=== PATIENT | female | born 1980 | race Caucasian/White ===

== ENCOUNTER → 2022-09-26 11:58 | Outpatient (BNVA) | payer MEDICAID, SELFPAY | PROVIDERS: Family Provider Registered Nurse; PCP Registered Nurse; Visit Provider Family Medicine | DX: F31.9 Bipolar disorder, unspecified (principal); H60.90 Unspecified otitis externa, unspecified ear; F43.10 Post-traumatic stress disorder, unspecified; F90.9 Attention-deficit hyperactivity disorder, unspecified type; F60.9 Personality disorder, unspecified; M25.562 Pain in left knee; M21.41 Flat foot [pes planus] (acquired), right foot; M79.7 Fibromyalgia | CPT/HCPCS: 80053; 85025 ==

== ENCOUNTER 2022-10-28 17:25 | Inpatient (IN) | payer MEDICAID, SELFPAY ==
[2022-10-28] VITALS (7 sets, daily range): BP systolic 92–195; BP diastolic 59–121; PULSE 93–127; RESP 14–24; TEMP 36.4–36.8; O2SAT 92–99
--- NOTE | 2022-10-28 17:32 | W.ED.PSYCHS ---
HPI - Psych General: Chief Complaint: Psychiatric Symptoms Stated Complaint: 96 Time Seen by Provider: 10/28/22 17:31 Limitations: altered mental status History of Present Illness: Ms. Daniels is a 42-year-old lady presenting to the emergency department on a 96-hour hold by law enforcement. The patient appears anxious and significantly disorganized. She provides essentially no reliable or meaningful collateral history. History is limited secondary to mental status change. Per chart review of visit with Dr Nieves 09/26/22- 42yo F with Hx of ADHD, Bipolar disorder and Personality disorder presents to [facility] Moved from [facility] moved back in with parents. moved here 3 days ago previous PCP: unknown Mother is LEGAL GUARDIAN 1. psychiatric disorders ?-ADHD, Bipolar, PTSD, personality disorder ?-seeing Dr. Vila, ?-Off medication x 3 months. ?-previously on lithium 300mg XR. previously on Latuda ?-poor reaction to seroquel ?-Over past 3 months, has , off medications, feeling mood has gotten worse. ?-2 manic episodes, almost went to hospital. last manic episode 1 month ago ?-admits to depression predominantly. ?-Denies SI/HI. admits to hx of self harm many years ago ?-desires to restart lithium or latuda. afraid of oncoming manic episodes. ... Review of Systems General: Reports: ROS unobtainable due to mental status PFS ED PFSH: Medical History ADHD Bipolar disorder Herniated disc Personality disorder Psychiatric care PTSD (post-traumatic stress disorder) Surgical History History of foot surgery left foot, reconstructive due to no arch Family History Grandmother Dementia Diabetes Father Psychiatric illness Hypertension Other Bipolar disorder Denies family history of CAD (coronary artery disease) Clotting disorder Hyperlipidemia Chronic kidney disease (CKD) Anesthesia complication Bleeding disorder Lung disease Cancer Stroke Social History Smoking and tobacco status: current every day smoker cigarettes [ Other cigarette details: 1/3PPD, 30 PY, started at 12yo] Alcohol intake: never Desire information about alcohol rehabilitation?: No Desire information about substance/drug rehabilitation?: No Adopted: No Caregiver/support person: No Lives independently: Yes Current occupational status: unemployed Current gender identity: Female Special ashley needs: No Female Reproductive History: Date of last menstrual period: 03/23/22 Para: 2 Spontaneous abortions: Yes Physical Exam Const: COMMON NORMALS: alert GENERAL APPEARANCE: well developed HENMT: COMMON NORMALS: normocephalic and atraumatic HEAD & SCALP: normocephalic and atraumatic THROAT: posterior oropharynx normal Eye: COMMON NORMALS: conjunctivae normal CONJUNCTIVA: Yes conjunctivae normal SCLERA: sclerae normal Neck/C-Spine: COMMON NORMALS: supple GENERAL: Yes trachea midline Resp: COMMON NORMALS: clear to auscultation bilaterally EFFORT & INSPECTION: Yes able to speak in complete sentences AUSCULTATION: clear to auscultation bilaterally Cardio: COMMON NORMALS: regular rate and regular rhythm RATE: regular rate RHYTHM: regular rhythm GI: COMMON NORMALS: Soft to palpation PALPATION: Yes Soft to palpation and No Tenderness to palpation present (GI) Extremity: GENERAL: Yes normal exam except as noted and No edema Neuro: COMMON NORMALS: moves all extremities SENSORIUM/ORIENTATION: Yes alert and Yes Orientation impaired Psych: APPEARANCE: Yes unkempt ATTITUDE: Yes paranoid and Yes evasive ACTIVITY/MOTOR BEHAVIOR: Yes psychomotor agitation and Yes fidgeting SPEECH: Yes Pressured speech present MOOD & AFFECT: Yes anxious and Yes Labile affect present THOUGHT PROCESS: incoherent and disorganized ATTENTION/CONCENTRATION: Yes attention grossly impaired and Yes concentration grossly impaired MEMORY/COGNITION: Yes memory grossly impaired and Yes cognition grossly impaired Course Vital Signs: Vital signs: Vital Signs Temperature 98.2 F 11/03/22 11:53 Pulse Rate 77 11/03/22 11:53 Respiratory Rate 16 11/03/22 11:53 Blood Pressure 112/70 11/03/22 11:53 Pulse Oximetry 96 11/03/22 11:53 Oxygen Delivery Me thod 11/02/22 06:00 [facility] - Psych Medical Decision Making 42-year-old lady with unclear past history presenting to the emergency department due to psychiatric concerns. Patient is markedly disorganized on exam. Initially cooperative however patient subsequently became significantly agitated and began to attempt to hit and kick staff. She was unable to be verbally de-escalated and subsequently required restraints. She was serially reexamined per protocol with [id number] exams during ED course and restraint release protocol was performed as appropriate. Labs without significant hematologic abnormalities, mild hypokalemia on metabolic panels, oral replenishment ordered. Toxic ingestions negative, UDS positive for amphetamines and THC. Given exam and clinical history provided as well as laboratory studies imaging not warranted at this time. The most likely cause of patient's symptoms is acute psychosis, possibly substance-induced. Patient significantly improved upon reassessment and able to tolerate p.o. intake, medications at desired therapeutic effect. Based on ED evaluation at this point there is no obvious condition that would preclude the patient from inpatient management of psychiatric symptoms. Given degree of psychosis patient placed on 96-hour hold. Discussed with psychiatry service who was agreeable to admit patient. Medical Records I reviewed the patient's medical records. Lab Data I reviewed the patient's lab results. 10/28/22 19:12 10/28/22 19:12 Discharge Plan Discharge Patient Disposition: Admitted As Inpatient Admit Provider: Parag Daniels Clinical Impression: Acute psychosis Condition: Stable Discharge Diet: Regular Discharge Activity: Resume usual activity Coding Level of Care Code ED Forcer Maker for Dahiana Garcia
--- NOTE | 2022-10-28 17:52 | PC.NURSE ---
Pt will not answer questions, she just rambles on about things that do not make since.
[2022-10-28] MEDS: midazolam 1 mg/mL INJ 2 mL 5 MG IM (18:54)
[2022-10-28] MEDS: ziprasidone 20 mg/mL SDV (18:55)
[2022-10-28] MEDS: ziprasidone 20 mg/mL SDV IM (18:55)
--- NOTE | 2022-10-28 19:00 | PC.NURSE ---
Pt refused to let me take vitals on her, refuses to talk or answer questions
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
[2022-10-28 19:28] LABS: Basophils % 0.3 %; Eosinophils # 0.1 10^3/uL (0.0-0.8); Eosinophils % 0.8 %; Hematocrit 40.7 % (37.0-47.0); Hemoglobin 13.1 g/dL (11.5-15.3); Lymphocytes # 1.5 10^3/uL (0.8-4.8); Lymphocytes % 22.7 %; Mean Corpuscular HGB Conc 32.2 g/dL (30.0-36.0); Mean Corpuscular Hemoglobin 28.6 pg (28.0-34.0); Mean Corpuscular Volume 88.9 fl (81-99); Mean Platelet Volume 10.6 fL (7.4-10.4); Monocytes # 0.5 10^3/uL (0.2-0.9); Monocytes % 7.7 %; Neutrophils # 4.36 10^3/uL (1.8-7.7); Neutrophils % 68.3 %; Nucleated Red Blood Cells % 0 %; Platelet Count 309 10^3/cmm (130-400); Red Blood Count 4.58 10^6/uL (4.1-5.3); Red Cell Distribution Width 13.5 % (12.1-15.1); White Blood Count 6.4 10^3/uL (4.0-10.0)
[2022-10-28 19:52] LABS: Alanine Aminotransferase 20 U/L (0-33); Albumin Level 4.6 g/dL (3.5-5.2); Alkaline Phosphatase 87 U/L (35-105); Anion Gap 18.1 (5-19); Aspartate Amino Transferase 41 U/L (0-32); Blood Urea Nitrogen 9 mg/dL (6-20); Calcium 9.8 mg/dL (8.5-10.5); Carbon Dioxide 22 mmol/L (22-29); Chloride 101 mmol/L (98-107); Globulin 3.2 g/dL (1.3-4.6); Glomerular Filtration Rate 78.3 mL/min (90-130); Glucose 141 mg/dL (65-115); Osmolality Calculated 287 mOsm/kg (285-295); Potassium 3.1 mmol/L (3.5-5.1); Sodium 138 mmol/L (136-145); Thyroid Stimulating Hormone 1.71 uIU/mL (0.27-4.20); Total Bilirubin 0.5 mg/dL (0.15-1.2); Total Protein 7.8 g/dL (6.6-8.7)
[2022-10-28 19:55] LABS: Acetaminophen < 5.0 ug/mL (10-30); Alcohol Level < 10 mg/dL (0-10); Salicylate < 0.3 mg/dL (3-10)
[2022-10-28 20:08] LABS: HCG Qualitative Urine. Negative (Negative)
[2022-10-28 20:18] LABS: Amphetamines Screen Urine Positive (Negative); Barbiturates Screen Urine Negative (Negative); Benzodiazepines Screen Urine Negative (Negative); Cocaine Screen Urine Negative (Negative); Opiate Screen Urine Negative (Negative); PCP Screen Urine Negative (Negative); THC Screen Urine Positive (Negative)
[2022-10-28] MEDS: potassium chloride ER 20 mEq Tablet 40 MEQ PO (20:27)
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
[2022-10-29] MEDS: hyDROXYzine 25 mg Capsule 50 MG PO (03:01)
[2022-10-29 06:00] VITALS: RESP 16
[2022-10-29] MEDS: haloperidol inj 5 mg/mL INJ 1 mL IM (08:23)
[2022-10-29] MEDS: diphenhydrAMINE 50 mg/mL SDV 1mL IM (08:23)
[2022-10-29] MEDS: LORazepam 2 mg/mL INJ 1 mL IM (08:23)
--- NOTE | 2022-10-29 08:23 | PC.NURSE ---
PRN BENADRYL/HALDOL/ATIVAN BENADRYL 50 MG GIVEN IM IN LEFT DELTOID AND ATIVAN 2 MG GIVEN IM WITH HALDOL 5 MG IM IN RIGHT DELTOID PER PT C/O INCREASED ANXIETY/AGITATION/PSYCHOSIS. YELLING LOUDLY FROM ROOM, CURSING AT STAFF AND OTHER PATIENTS IN THE HALLWAY. VISIBLY SHAKING WHILE SITTING ON HER BED. TOLERATED INJECTIONS WELL.
--- NOTE | 2022-10-29 09:41 | PC.OT ---
OT EVALUATION ORDERS RECEIVED. NURSING REQUESTS HOLD AT THIS TIME DUE TO MEDS GIVEN THIS MORNING FOR AGITATION. PATIENT IS SEEN WANDERING UNSTEADILY OUT OF HER ROOM TO THE NURSES STATION. I ASKED IF SHE NEEDED ASSISTANCE BUT SHE DID NOT RESPOND. WILL ATTEMPT OT EVALUATION AGAIN AT A LATER TIME
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
[2022-10-29 14:00] VITALS: RESP 16
[2022-10-29 20:29] VITALS: RESP 18
[2022-10-30 06:00] VITALS: RESP 16
[2022-10-30] MEDS: OLANZapine 5 mg ODT PO (09:24)
[2022-10-30] MEDS: pregabalin 150 mg Capsule PO ×2 (09:24→18:00)
[2022-10-30] MEDS: hyDROXYzine 25 mg Capsule 50 MG PO (09:24)
[2022-10-30] MEDS: lurasidone 20 mg Tablet PO (09:25)
[2022-10-30] MEDS: ibuprofen 600 mg Tablet PO (12:57)
[2022-10-30] MEDS: tizanidine 4 mg Tablet PO (12:58)
[2022-10-30 14:00] VITALS: BP 98/63; PULSE 86; RESP 20; TEMP 36.6; O2SAT 98
--- NOTE | 2022-10-30 14:28 | W.PM.NPUPNS ---
Subjective NPU Subjective: Patient presented today with slightly more arousable and yesterday. She had reportedly eaten some during the stay but otherwise she has been lethargic and in bed. Mental Status Exam MSE Comments: This is a slender white female in hospital scrubs with limited grooming and absent eye contact. Absent dentition. No abnormal movements except for psychomotor retardation. Uncooperative with exam in mild distress. Speech was mostly absent and decreased rate and volume. Mood not described affect lethargic. Thought process linear. Thought content: Patient had no signs of injury or outwardly directed aggression, delusions reported or noted, she did not appear to be attending to internal stimuli. Attention and concentration were impaired and memory was not evaluated, but allegorical. She will occasionally ramble and oriented to person. Insight, judgment and impulse control are impaired. Vitals/I&O/Wt Last Vital Signs Temp 98 F 10/30/22 14:00 Pulse 86 10/30/22 14:00 Resp 20 H 10/30/22 14:00 BP 98/63 10/30/22 14:00 Pulse Ox 98 10/30/22 14:00 O2 Del Method 10/30/22 14:00 Data NPU 10/28/22 19:12 10/28/22 19:12 A&P Assessment and plan (1) Acute psychosis: (2) Bipolar disorder: (3) Personality disorder: (4) PTSD (post-traumatic stress disorder): Plan This is a 22-year-old white female with a long history of trauma, addiction and mental health diagnoses including bipolar disorder who presents with psychotic symptoms and significant lethargy likely due to a methamphetamine withdrawal syndrome. 1. Continue current medication. 2. Continue every 15 minute checks for safety. 3. Encourage individual, group and milieu therapy once he has engaged. 4. Encourage sobriety treatment after discharge to the hospital care to which she is willing to commit. 5. Obtain collateral information given her limited historical assistance. Involuntary Hold Information 96 Hour Hold: 96 Hour Involuntary Admission: Yes 96 Hour Hold Ending Date: 11/03/22 96 Hour Hold Ending Time: 19:10 Attestations NPU Medical Necessity Statement*: Inpatient hospitalization is medically necessary and be clinically appropriate vet at this time. We will monitor/initiate medications and make changes as indicated. Likely length of stay 5 to 7 days. Coding Level of Care Code Acute Technical Support Assistant for Chg Fwd Diagnoses Acute psychosis F23 Bipolar disorder F31.9 Personality disorder F60.9 PTSD (post-traumatic stress disorder) F43.10
[2022-10-30 14:55] VITALS: PULSE 89; RESP 20; O2SAT 98
[2022-10-30 20:48] VITALS: BP 100/58; PULSE 76; RESP 18; TEMP 36.4; O2SAT 94
[2022-10-30] MEDS: diphenhydrAMINE 50 mg Capsule PO (21:29)
[2022-10-31] MEDS: loperamide 2 mg Capsule PO ×2 (03:22→08:08)
--- NOTE | 2022-10-31 03:22 | PC.NURSE ---
Patient woke up and was C/O diarrhea. Immodium 2mg PO given.
[2022-10-31 06:00] VITALS: BP 117/89; PULSE 103; RESP 17; TEMP 36.8; O2SAT 98
[2022-10-31] MEDS: acetaminophen 325 mg Tablet 650 MG PO (07:03)
[2022-10-31] MEDS: hyDROXYzine 25 mg Capsule 50 MG PO (07:03)
[2022-10-31] MEDS: lurasidone 20 mg Tablet PO (08:08)
[2022-10-31] MEDS: OLANZapine 5 mg ODT PO ×2 (08:08→15:44)
[2022-10-31] MEDS: pregabalin 150 mg Capsule PO ×2 (08:08→18:06)
[2022-10-31 14:00] VITALS: BP 117/79; PULSE 88; RESP 20; TEMP 37.3; O2SAT 98
--- NOTE | 2022-10-31 17:36 | W.PM.NPUPNS ---
Subjective NPU Subjective: Patient presented today finally alert enough to have a meaningful conversation. However she was quite irritable and ultimately ended the conversation early. She had identified that she was frustrated in her current living environment because they smoke weed all the time but are critical of me. She acknowledged that she made a little castaneda-castaneda. When this va underwriter queried if she meant that she had relapsed on methamphetamine she got very upset asking why I had said the word out loud even though we were the only 2 people in the room. Attempted to discuss the importance of accountability and recovery and she ultimately ended the conversation soon after. Mental Status Exam MSE Comments: This is a slender white female in hospital scrubs with limited grooming and adequate eye contact. Absent dentition. No abnormal movements except for mild psychomotor retardation. More cooperative with exam in mild to moderate distress. Speech was more normal rate and volume. Mood described as fine, affect irritable. Thought process linear. Thought content: Patient denies suicidal or homicidal ideation, there were no delusions reported but some paranoia noted, she did not appear to be attending to internal stimuli. Attention and concentration were improving and memory was more liable but not were formally tested. She was alert and oriented x3. Insight, judgment and impulse control are impaired. Vitals/I&O/Wt Last Vital Signs Temp 99.1 F 10/31/22 14:00 Pulse 85 10/31/22 22:33 Resp 16 10/31/22 22:33 BP 117/79 10/31/22 14:00 Pulse Ox 96 10/31/22 22:33 O2 Del Method 10/31/22 22:33 Data NPU 10/28/22 19:12 10/28/22 19:12 A&P Assessment and plan (1) Acute psychosis: (2) Bipolar disorder: (3) Personality disorder: (4) PTSD (post-traumatic stress disorder): Plan This is a 22-year-old white female with a long history of trauma, addiction and mental health diagnoses including bipolar disorder who presents with psychotic symptoms and significant lethargy likely due to a methamphetamine withdrawal syndrome. 1. Continue current medication. 2. Continue every 15 minute checks for safety. 3. Encourage individual, group and milieu therapy once he has engaged. 4. Encourage sobriety treatment after discharge to the hospital care to which she is willing to commit. 5. Obtain collateral information given her limited historical assistance. Involuntary Hold Information 96 Hour Hold: 96 Hour Involuntary Admission: Yes 96 Hour Hold Ending Date: 11/03/22 96 Hour Hold Ending Time: 19:10 Attestations NPU Medical Necessity Statement*: Inpatient hospitalization is medically necessary and be clinically appropriate vet at this time. We will monitor/initiate medications and make changes as indicated. Likely length of stay 3-5 days. Coding Level of Care Code Acute Delicate Fabrics Presser for [facility] Fwd Diagnoses Acute psychosis F23 Bipolar disorder F31.9 Personality disorder F60.9 PTSD (post-traumatic stress disorder) F43.10
[2022-10-31 20:04] VITALS: RESP 16
[2022-10-31 22:33] VITALS: PULSE 85; RESP 16; O2SAT 96
[2022-11-01 06:00] VITALS: RESP 16
[2022-11-01] MEDS: pregabalin 150 mg Capsule PO ×2 (08:18→18:13)
[2022-11-01] MEDS: lurasidone 20 mg Tablet PO (08:18)
[2022-11-01] MEDS: hyDROXYzine 25 mg Capsule 50 MG PO (08:20)
[2022-11-01] MEDS: OLANZapine 5 mg ODT PO ×2 (09:16→13:49)
[2022-11-01] MEDS: diphenhydrAMINE 50 mg Capsule PO (10:18)
[2022-11-01] MEDS: haloperidol 5 mg Tablet PO ×2 (10:18→15:29)
--- NOTE | 2022-11-01 13:05 | W.PM.NPUPNS ---
Subjective NPU Subjective: Patient presented today reporting that she is starting to feel better and was apologetic about the way she had behaved the last couple of days. She reported an openness to get connected with services. But she had some resistance to any intensive sober living programs. She did acknowledge having recent relapse and some challenges with her relationship with her family. She denied any needs for any other medications than the 1 she was currently taking. Mental Status Exam MSE Comments: This is a slender white female in hospital scrubs with limited grooming and adequate eye contact. Absent dentition. No abnormal movements except for mild psychomotor retardation. More cooperative with exam in no acute distress. Speech was more normal rate and volume. Mood described as better, affect congruent. Thought process linear and more organized. Thought content: Patient denies suicidal or homicidal ideation, there were no delusions reported but some paranoia noted, she did not appear to be attending to internal stimuli. Attention and concentration were improving and memory was more liable but not were formally tested. She was alert and oriented x3. Insight and judgment were improving and impulse control are limited. Vitals/I&O/Wt Last Vital Signs Temp 99.1 F 10/31/22 14:00 Pulse 85 10/31/22 22:33 Resp 16 11/01/22 06:00 BP 117/79 10/31/22 14:00 Pulse Ox 96 10/31/22 22:33 O2 Del Method 10/31/22 22:33 Data NPU 10/28/22 19:12 10/28/22 19:12 A&P Assessment and plan (1) Acute psychosis: (2) Bipolar disorder: (3) Personality disorder: (4) PTSD (post-traumatic stress disorder): Plan This is a 22-year-old white female with a long history of trauma, addiction and mental health diagnoses including bipolar disorder who presents with psychotic symptoms and significant lethargy likely due to a methamphetamine withdrawal syndrome. 1. Continue current medication. 2. Continue every 15 minute checks for safety. 3. Encourage individual, group and milieu therapy once he has engaged. 4. Encourage sobriety treatment after discharge to the hospital care to which she is willing to commit. 5. Obtain collateral information given her limited historical assistance. Involuntary Hold Information 96 Hour Hold: 96 Hour Involuntary Admission: Yes 96 Hour Hold Ending Date: 11/03/22 96 Hour Hold Ending Time: 19:10 Attestations NPU Medical Necessity Statement*: Inpatient hospitalization is medically necessary and be clinically appropriate vet at this time. We will monitor/initiate medications and make changes as indicated. Likely length of stay 2-4 days. Coding Level of Care Code Acute Curriculum And Instruction Specialist for Chg Fwd Diagnoses Acute psychosis F23 Bipolar disorder F31.9 Personality disorder F60.9 PTSD (post-traumatic stress disorder) F43.10
[2022-11-01] MEDS: acetaminophen 325 mg Tablet 650 MG PO (13:20)
[2022-11-01 14:00] VITALS: BP 106/69; PULSE 75; RESP 16; TEMP 37.4; O2SAT 98
[2022-11-01 21:23] VITALS: BP 109/71; PULSE 84; RESP 16; TEMP 36.9; O2SAT 100
[2022-11-02 06:00] VITALS: BP 118/74; PULSE 83; RESP 16; TEMP 37; O2SAT 98; BMI 21.2
[2022-11-02] MEDS: loperamide 2 mg Capsule PO (07:47)
[2022-11-02] MEDS: hyDROXYzine 25 mg Capsule 50 MG PO (07:47)
--- NOTE | 2022-11-02 07:49 | PC.NURSE ---
PRN Med Patient presented to the counter with hands shaking and stated she was feeling very anxious this morning and was experiencing diarrhea. Patient given 50 mg of hydroxyzine PO and 2 mg of loperamide.
[2022-11-02] MEDS: pregabalin 150 mg Capsule PO ×2 (08:38→18:07)
[2022-11-02] MEDS: lurasidone 20 mg Tablet PO (08:38)
[2022-11-02] MEDS: ondansetron 4 MG Tablet PO (11:03)
[2022-11-02] MEDS: OLANZapine 5 mg ODT PO ×2 (11:03→16:17)
--- NOTE | 2022-11-02 11:07 | PC.NURSE ---
PRN SHIP SUPERINTENDENT Patient in dayroom requesting something for anxiety. Visibly anxious, tapping feet continuously and moving hands around. Patient administered zyprexa 5 mg ODT. She also stated her anxiety was making her feel nauseous so 4 mg ondansetron was administered.
--- NOTE | 2022-11-02 12:09 | W.PM.NPUPNS ---
Subjective NPU Subjective: Patient presents today continuing to show slow but steady improvement. Clearly her sensorium shows obvious improvement with each day removed from the use. She seems to be more open to the idea that treatment holds the spain to her having a lasting improvement. We discussed working with the treatment team tomorrow to get her connected with outpatient resources. We discussed the possibility of discharge tomorrow versus filing for a 21-day hold with that this point is less likely. Mental Status Exam MSE Comments: This is a slender white female in hospital scrubs with appropriate grooming and eye contact. Absent dentition. No abnormal movements. More cooperative with exam in no acute distress. Speech was more normal rate and volume. Mood described as better, affect congruent. Thought process linear and more organized. Thought content: Patient denies suicidal or homicidal ideation, there were no delusions reported but some paranoia noted, she did not appear to be attending to internal stimuli. Attention and concentration were improving and memory was more liable but not were formally tested. She was alert and oriented x3. Insight and judgment were improving and impulse control are limited, but improving. Vitals/I&O/Wt Last Vital Signs Temp 98.6 F 11/02/22 06:00 Pulse 83 11/02/22 06:00 Resp 16 11/02/22 06:00 BP 118/74 11/02/22 06:00 Pulse Ox 98 11/02/22 06:00 O2 Del Method 11/02/22 06:00 Weight last 48 hrs Weight 61.405 kg Data NPU 10/28/22 19:12 10/28/22 19:12 A&P Assessment and plan (1) Acute psychosis: (2) Bipolar disorder: (3) Personality disorder: (4) PTSD (post-traumatic stress disorder): Plan This is a 22-year-old white female with a long history of trauma, addiction and mental health diagnoses including bipolar disorder who presents with psychotic symptoms and significant lethargy likely due to a methamphetamine withdrawal syndrome. 1. Continue current medication. 2. Continue every 15 minute checks for safety. 3. Encourage individual, group and milieu therapy once he has engaged. 4. Encourage sobriety treatment after discharge to the hospital care to which she is willing to commit. 5. Obtain collateral information given her limited historical assistance. Involuntary Hold Information 96 Hour Hold: 96 Hour Involuntary Admission: Yes 96 Hour Hold Ending Date: 11/03/22 96 Hour Hold Ending Time: 19:10 Attestations NPU Medical Necessity Statement*: Inpatient hospitalization is medically necessary and be clinically appropriate vet at this time. We will monitor/initiate medications and make changes as indicated. Likely length of stay 1-3 days. Coding Level of Care Code Acute Director Of Early Childhood for Chg Fwd Diagnoses Acute psychosis F23 Bipolar disorder F31.9 Personality disorder F60.9 PTSD (post-traumatic stress disorder) F43.10
[2022-11-02] MEDS: nicotine 2 mg Gum BUCCAL (12:33)
[2022-11-02] MEDS: haloperidol 5 mg Tablet PO (13:42)
[2022-11-02] MEDS: diphenhydrAMINE 50 mg Capsule PO (13:42)
--- NOTE | 2022-11-02 13:44 | PC.NURSE ---
PRN Windows Desktop Engineer Patient presented to the nurses' station visibly rubbing her hands over each other and speech became pressured. She stated she was very anxious and attempted to utilize techniques to alleviate her anxiety on a handout she was given, but they didn't work. She also stated that the vistaril and zyprexa given earlier didn't do much to relieve any of her anxiety. Patient given 5 mg haldol PO and 50 mg diphenhydramine PO.
[2022-11-02 14:00] VITALS: BP 130/84; PULSE 94; RESP 18; TEMP 36.7; O2SAT 99
[2022-11-02] MEDS: nicotine 21 mg Patch 1 PATCH TRANSDERMA (14:30)
[2022-11-02] MEDS: ibuprofen 600 mg Tablet PO (16:17)
--- NOTE | 2022-11-02 16:19 | PC.NURSE ---
zyprexa 5 mg administered due to increasing anxiety. Patient states she can't keep her thoughts calmed and felt the medication that was administered under the tongue seemed to help the best.
[2022-11-02 19:52] VITALS: BP 112/70; PULSE 77; RESP 16; TEMP 36.8; O2SAT 96
[2022-11-03] MEDS: trazodone 50 mg Tablet PO (00:15)
[2022-11-03 05:49] VITALS: RESP 16
[2022-11-03] MEDS: acetaminophen 325 mg Tablet 650 MG PO (06:48)
[2022-11-03] MEDS: calcium carbonate 500 mg Chew Tablet 1000 MG PO ×2 (06:57→11:28)
[2022-11-03] MEDS: lurasidone 20 mg Tablet PO (08:08)
[2022-11-03] MEDS: hyDROXYzine 25 mg Capsule 50 MG PO (08:09)
[2022-11-03] MEDS: pregabalin 150 mg Capsule PO (08:10)
[2022-11-03] MEDS: OLANZapine 5 mg ODT PO ×2 (08:28→12:34)
--- NOTE | 2022-11-03 08:29 | PC.NURSE ---
PRN Program Evaluator Patient exhibiting high anxiety levels and asking for something to help with her anxiety. She states she feels like she is crawling out of her skin. She presents to the nurses' station bouncing on her feet and with pressured speech.
[2022-11-03] MEDS: ibuprofen 600 mg Tablet PO (10:21)
[2022-11-03 11:53] VITALS: BP 112/70; PULSE 77; RESP 16; TEMP 36.8; O2SAT 96
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
--- NOTE | 2022-11-03 12:34 | PC.NURSE ---
PRN Investigator Operator Patient presenting very anxious about her discharge. Speech became pressured after she attempted to call her ride to pick her up. When her ride said she would be here shortly, patient began bouncing on her feet and asked if she could have something for anxiety. Zyprexa 10 mg ODT administered.
== END 2022-11-03 13:01 | disposition home or self-care (01) | DRG 885 ==
LOC: ER 19:36 → NP 20:42
PROVIDERS: Admitting Provider Psychiatry & Neurology Psychiatry; Emergency Provider Emergency Medicine; PCP Family Medicine; Visit Provider Psychiatry & Neurology Psychiatry
DX: F23 Brief psychotic disorder (principal); F15.23 Other stimulant dependence with withdrawal; F31.9 Bipolar disorder, unspecified; F60.9 Personality disorder, unspecified; F43.10 Post-traumatic stress disorder, unspecified; E87.6 Hypokalemia; F17.210 Nicotine dependence, cigarettes, uncomplicated; Z81.8 Family history of other mental and behavioral disorders; Z81.3 Family history of other psychoactive substance abuse and dependence; Z81.1 Family history of alcohol abuse and dependence; Z91.411 Personal history of adult psychological abuse; Z91.52 Personal history of nonsuicidal self-harm
CPT/HCPCS: 36415; 80053; 80306; 80307; 81025; 84443; 85025; 96372; 97150; 97165; 99285; J1200; J1630; J2060; J2250; J3486; Q0162; Q0163

== ENCOUNTER 2022-11-09 11:23 | Emergency (ER) | payer MEDICAID, SELFPAY ==
[2022-11-09 11:49] VITALS: BP 116/77; PULSE 87; RESP 20; TEMP 36.9; O2SAT 100
--- NOTE | 2022-11-09 11:54 | ED_ITS ---
HPI - Anxiety General: Chief Complaint: Anxiety Stated Complaint: anxiety, back pain Time Seen by Provider: 11/09/22 11:54 History of Present Illness: Ms. Daniels is a 42-year-old lady with history of substance abuse and psychiatric disorder presenting to the emergency department due to low back pain. She reports history of a herniated disc and fell over while making the bed the other day which exacerbated her pain. There is some radiation down the left leg. Additionally she is having difficulty staying still and her family has noticed that she has been talking a lot and rocking. 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 Intensity symptoms is moderate. Course is worsened. Reports compliance with her medication regimen. No other specific changes in health, exacerbating, or alleviating factors identified. Onset (ago): day(s) Severity: moderate History of similar episodes: Yes Relieving factors: nothing Exacerbating factors: other Associated symptoms: Reports no associated symptoms Review of Systems General: Reports: 10 or more systems reviewed and unremarkable except in HPI and below PFSH ED PFSH: Medical History ADHD Bipolar disorder Herniated disc Personality disorder Psychiatric care PTSD (post-traumatic stress disorder) Surgical History History of foot surgery left foot, reconstructive due to no arch Family History Grandmother Dementia Diabetes Father Psychiatric illness Hypertension Other Bipolar disorder Denies family history of CAD (coronary artery disease) Clotting disorder Hyperlipidemia Chronic kidney disease (CKD) Anesthesia complication Bleeding disorder Lung disease Cancer Stroke Social History Smoking and tobacco status: current every day smoker cigarettes [ Other cigarette details: 1/3PPD, 30 PY, started at 12yo] Alcohol intake: never Desire information about alcohol rehabilitation?: No Desire information about substance/drug rehabilitation?: No Adopted: No Caregiver/support person: No Lives independently: Yes Current occupational status: unemployed Current gender identity: Female Special ashley needs: No Female Reproductive History: Date of last menstrual period: 03/23/22 Para: 2 Spontaneous abortions: Yes Physical Exam Const: COMMON NORMALS: alert GENERAL APPEARANCE: cooperative and well developed HENMT: COMMON NORMALS: normocephalic and atraumatic HEAD & SCALP: normocephalic and atraumatic Eye: COMMON NORMALS: conjunctivae normal CONJUNCTIVA: Yes conjunctivae normal SCLERA: sclerae normal Neck/C-Spine: COMMON NORMALS: supple GENERAL: Yes trachea midline Resp: COMMON NORMALS: normal respiratory effort EFFORT & INSPECTION: Yes able to speak in complete sentences Cardio: COMMON NORMALS: regular rate and regular rhythm RATE: regular rate RHYTHM: regular rhythm GI: COMMON NORMALS: Soft to palpation PALPATION: Yes Soft to palpation and No Tenderness to palpation present (GI) : COMMON NORMALS: Yes no CVA tenderness BLADDER/KIDNEY EXAM: Yes no CVA tenderness Back/Pelvis: COMMON NORMALS: no CVA tenderness LUMBAR SPINE/LOWER BACK: Yes paraspinal muscle tenderness Extremity: GENERAL: Yes normal exam except as noted and No edema Neuro: COMMON NORMALS: moves all extremities SENSORIUM/ORIENTATION: Yes alert and No Orientation impaired Psych: COMMON NORMALS: mental status grossly normal, Normal thought process present, denies homicidal ideation and denies suicidal ideation ACTIVITY/MOTOR BEHAVIOR: Yes fidgeting and Yes restless THOUGHT PROCESS: Normal thought process present Course Vital Signs: Vital signs: Vital Signs Temperature 98.5 F 11/09/22 11:49 Pulse Rate 88 11/09/22 12:39 Respiratory Rate 20 H 11/09/22 12:39 Blood Pressure 116/71 11/09/22 12:39 Pulse Oximetry 97 11/09/22 12:39 Oxygen Delivery Me thod 11/09/22 12:39 MDM - Anxiety Medical Decision Making 42-year-old lady with history of anxiety and recent psychiatric hospitalization presenting to the emergency department due to low back pain and anxiety. She does appear anxious and fidgety on exam. Denies other psychiatric symptoms. Urinalysis negative. X-ray without acute pathology identified. Patient feels improved after Toradol, acetaminophen, hydroxyzine. Most likely etiology of patient's symptoms is musculoskeletal back pain and anxiety secondary to underlying anxiety disorder. The results of ED evaluation were discussed with the patient including pr escriptions and/or symptomatic cares (if applicable) including appropriate and responsible use, followup plan, and return precautions. The patient verbalized understanding and felt safe for discharge. Medical Records I reviewed the patient's medical records. Lab Data I reviewed the patient's lab results. Radiology Impressions Lumbar Spine X-Ray 11/09/22 12:00 IMPRESSION: No acute findings. Laboratory Results Urine Color Yellow (Yellow) 11/09/22 12:20 Urine Appearance Clear (CLEAR) 11/09/22 12:20 Urine pH 8 (5-7) H 11/09/22 12:20 Ur Specific Walker 1.015 (1.005-1.030) 11/09/22 12:20 Urine Protein Neg (Negative) 11/09/22 12:20 Urine Glucose (UA) Norm (Normal) 11/09/22 12:20 Urine Ketones Negative (Negative) 11/09/22 12:20 Urine Blood Neg (Negative) 11/09/22 12:20 Urine Nitrate Negative (Negative) 11/09/22 12:20 Urine Bilirubin Neg (Negative) 11/09/22 12:20 Prot Sulfosalicylic Acd Negative (Negative) 11/09/22 12:20 Urine Urobilinogen Norm mg/dL (Negative) 11/09/22 12:20 Ur Leukocyte Esterase Negative (Negative) 11/09/22 12:20 Discharge Plan Discharge Patient Disposition: Home Clinical Impression: Anxiety, Low back pain radiating to left leg Condition: Stable Prescriptions: New acetaminophen 500 mg capsule 1,000 mg PO Q6H PRN (Reason: pain) Qty: 60 0RF ibuprofen 600 mg tablet 600 mg PO Q6H PRN (Reason: pain) Qty: 60 0RF Ativan 0.5 mg tablet 0.5 mg PO Q8H PRN (Reason: anxiety) Qty: 10 0RF No Action tizanidine 4 mg capsule 4 mg PO BID PRN (Reason: muscle spasticity) Qty: 30 0RF Latuda 40 mg tablet 40 mg PO DAILY 30 Days Qty: 30 1RF Rx Instructions: With meal fluticasone propionate [Flonase Allergy Relief] 50 mcg/actuation spray,suspension 2 spray intranasal DAILY Qty: 16 2RF Rx Instructions: administer into each nostril polyethylene glycol 3350 [Miralax] 17 gram/dose powder 17 g PO TID PRN (Reason: constipation) Qty: 510 2RF trazodone 50 mg Tablet 50 mg PO BEDTIME PRN (Reason: Sleep) 30 Days Qty: 30 1RF hydroxyzine pamoate 25 mg Capsule 50 mg PO Q6H PRN (Reason: Anxiety) 30 Days Qty: 120 1RF albuterol sulfate 90 mcg/actuation HFA aerosol inhaler 1 inh inhalation QID PRN (Reason: shortness of breath or wheezing) 1 Days Qty: 8.5 0RF Lyrica 150 mg capsule 150 mg PO BID 30 Days Qty: 60 1RF Discharge Orders: Discharge ED (Routine); Ordered 11/09/22 Ordered By: Danny Rojas Referrals: Stalin Nieves MD [Primary Care Provider] - Discharge Diet: Usual diet Discharge Activity: Increase activity as tolerated Patient Instructions: Lorazepam (By mouth), Acute Low Back Pain (ED), Anxiety (ED) Activity Restrictions/Additional Instructions: Thank you for visiting the emergency department. You were seen and evaluated for anxiety and low back pain. The most likely cause of your low back pain is musculoskeletal in nature and should improve with time and conservative treatment. You may use [id number] medications such as acetaminophen and ibuprofen for pain however please do not exceed the daily recommended dosage as listed on the packaging and please keep in mind that many namebrand medications contain the same active ingredients. Please avoid these medications if previously instructed to do so by another physician due to other underlying medical condition. I will also prescribe a few tablets of Ativan for additional anxiety not controlled by hydroxyzine. Do not take this at the same time as the hydroxyzine as the combination may cause oversedation. Please follow-up with your psychiatric care provider this week for possible medication adjustments. Return to the emergency department for worsening symptoms or anything else that you are concerned about and feel needs emergency department evaluation. Coding Level of Care Code ED Wallpaper Printer for Dahiana Fwdaniel Exam Comprehensive
--- NOTE | 2022-11-09 12:00 | XRR_ITS ---
PROCEDURE INFORMATION: Exam: XR Lumbosacral Spine Exam date and time: 11/09/2022 12:03 PM Age: 42 years old Clinical indication: Injury or trauma; Fall; Blunt trauma (contusions or hematomas); Additional info: Low back pain after fall TECHNIQUE: Imaging protocol: Radiologic exam of the lumbosacral spine. Views: 2 or 3 views. COMPARISON: No relevant prior studies available. FINDINGS: Bones/joints: Normal. No acute fracture. Normal alignment. Soft tissues: Unremarkable. XR/XR lumbar spine 2-3V* [id number] IMPRESSION: No acute findings.
[2022-11-09] MEDS: hyDROXYzine 25 mg Capsule 50 MG PO (12:07)
[2022-11-09] MEDS: ketorolac 30 mg/mL INJ IM (12:07)
[2022-11-09] MEDS: acetaminophen 500 mg Tablet 1000 MG PO (12:08)
[2022-11-09 12:26] LABS: Add Urine Microscopic? NO; Charge for UA Resulting for Rev
[2022-11-09 12:35] LABS: Bilirubin Urine Neg (Negative); Blood Urine Neg (Negative); Glucose Urine UA Norm (Normal); Ketones Urine Negative (Negative); Leukocyte Esterase Urine Negative (Negative); Nitrate Urine Negative (Negative); Protein Urine Neg (Negative); Specific Gravity, Urine 1.015 (1.005-1.030); Sulfosalicylic Acid Urine Negative (Negative); Urine Appearance Clear (CLEAR); Urine Color Yellow (Yellow); Urobilinogen Urine Norm (Negative); pH Urine 8 (5-7)
[2022-11-09 12:39] VITALS: BP 116/71; PULSE 88; RESP 20; O2SAT 97
== END 2022-11-09 13:19 | disposition home or self-care (01) ==
PROVIDERS: Emergency Provider Emergency Medicine; PCP Family Medicine
DX: M54.50 Low back pain, unspecified (principal); F41.9 Anxiety disorder, unspecified; F17.210 Nicotine dependence, cigarettes, uncomplicated
CPT/HCPCS: 72100; 81003; 96372; 99284; J1885

== ENCOUNTER 2022-11-28 11:20 | Inpatient (IN) | payer MEDICAID, SELFPAY ==
[2022-11-28 11:23] VITALS: BP 134/92; PULSE 87; RESP 14; TEMP 36.6; O2SAT 95; BMI 21.9
--- NOTE | 2022-11-28 11:56 | ED.C_ITS ---
Documented by User: Martínez Lara DO 11/28/22 18:02 HPI - Psych General: Chief Complaint: Psychiatric Symptoms Stated Complaint: 96 HOUR HOLD Time Seen by Provider: 11/28/22 11:29 Source: patient Mode of arrival: other (Law enforcement) History of Present Illness: 42-year-old female presents emergency room in custody with law enforcement. She was brought into on a court ordered 96-hour hold. She was at [facility] yesterday when evidently there is a concern about her using meth was also several mentions of others telling the [facility] health counselor about abnormal behavior and potentially suicidal behavior. Step mother wrote a affidavit about her laying on the bed with a belt around her neck and a later patient denies recalling any that she denies being suicidal or homicidal. She states she has used meth in the past but cannot recall the last time she used meth and offers to take a drug test to prove. She is agreeable and plate participates in conversation with a history. Relieving factors: none Associated symptoms: Deny auditory hallucinations, visual hallucinations, delusions, depression, homicidal ideation, suicidal ideation or racing thoughts Review of Systems Const: Denies: fever(s), chills, body aches, change in appetite, fatigue or malaise ENMT: Denies: throat pain, ear or mastoid pain, nasal discharge or nasal congestion Card: Denies: chest pain, edema, dyspnea on exertion or orthopnea Resp: Denies: dyspnea, productive cough or non-productive cough GI: Denies: abdominal pain, nausea, vomiting, hematemesis, coffee ground emesis, diarrhea, constipation, bloating, hematochezia or melena : Denies: flank pain, difficulty voiding, dysuria, urinary frequency or uri nary urgency Skin/Breast: Denies: rash or pruritus Psych: Denies: depression, visual hallucinations, auditory hallucinations, suicidal ideation or homicidal ideation PFS ED PFSH: Medical History ADHD Bipolar disorder Herniated disc Personality disorder Psychiatric care PTSD (post-traumatic stress disorder) Surgical History History of foot surgery left foot, reconstructive due to no arch Family History Grandmother Dementia Diabetes Father Psychiatric illness Hypertension Other Bipolar disorder Denies family history of CAD (coronary artery disease) Clotting disorder Hyperlipidemia Chronic kidney disease (CKD) Anesthesia complication Bleeding disorder Lung disease Cancer Stroke Social History Smoking and tobacco status: current every day smoker cigarettes [ Other cigarette details: 1/3PPD, 30 PY, started at 12yo] Alcohol intake: never Desire information about alcohol rehabilitation?: No Desire information about substance/drug rehabilitation?: No Adopted: No Caregiver/support person: No Lives independently: Yes Current occupational status: unemployed Current gender identity: Female Special ashley needs: No Female Reproductive History: Date of last menstrual period: 03/23/22 Para: 2 Spontaneous abortions: Yes Physical Exam Const: GENERAL APPEARANCE: cooperative and comfortable ORIENTATION/CON SCIOUSNESS: Yes awake, Yes oriented to person, Yes oriented to place and Yes oriented to time HENMT: COMMON NORMALS: normocephalic, atraumatic and hearing grossly normal bilaterally HEAD & SCALP: normocephalic and atraumatic Resp: COMMON NORMALS: normal respiratory effort, No retractions, No use of accessory muscles and clear to auscultation bilaterally AUSCULTATION: clear to auscultation bilaterally Cardio: COMMON NORMALS: regular rate, regular rhythm and No murmurs present (Cardio) RATE: regular rate RHYTHM: regular rhythm GI: COMMON NORMALS: Soft to palpation and No hepatosplenomegaly present AUSCULTATION: Yes normoactive bowel sounds PALPATION: Yes Soft to palpation, No Tenderness to palpation present (GI), No Guarding due to palpation present (GI) and Yes No hepatosplenomegaly present Extremity: COMMON NORMALS: normal to inspection, capillary refill normal, no clubbing, cyanosis or edema, no calf tenderness and no pedal edema Neuro: SENSORIUM/ORIENTATION: Yes oriented to person, Yes oriented to place and Yes oriented to time Psych: THOUGHT CONTENT: No delusions Skin: COMMON NORMALS: no rashes or lesions noted GENERAL SKIN EXAM: no rashes or lesions noted Course Vital Signs: Vital signs: Vital Signs Temperature 97.5 F L 11/28/22 22:00 Pulse Rate 87 11/28/22 11:23 Respiratory Rate 20 H 11/28/22 22:00 Blood Pressure 129/80 11/28/22 22:00 Pulse Oximetry 95 11/28/22 11:23 Oxygen Delivery Me thod 11/28/22 22:00 MDM - Psych Medical Decision Making Awaiting Dr. Daniels to see the patient in the department. Care signed out to Dr. Crowe at change of shift. See final notes for diagnosis and disposition. Medical Records I reviewed the patient's medical records. Lab Data I reviewed the patient's lab results. 11/28/22 12:28 11/28/22 12:28 Laboratory Results WBC 5.7 10^3/uL (4.0-10.0) 11/28/22 13:20 RBC 4.16 10^6/uL (4.1-5.3) 11/28/22 13:20 Hgb 11.5 g/dL (11.5-15.3) 11/28/22 13:20 Hct 38.1 % (37.0-47.0) 11/28/22 13:20 MCV 91.6 fl (81-99) 11/28/22 13:20 MCH 27.6 pg (28.0-34.0) L 11/28/22 13:20 MCHC 30.2 g/dL (30.0-36.0) 11/28/22 13:20 RDW 13.6 % (12.1-15.1) 11/28/22 13:20 Plt Count 272 10^3/cmm (130-400) 11/28/22 13:20 MPV 10.7 fL (7.4-10.4) H 11/28/22 13:20 Neut % (Auto) 62.6 % 11/28/22 13:20 Lymph % (Auto) 24.2 % 11/28/22 13:20 [place] % (Auto) 7.6 % 11/28/22 13:20 Eos % (Auto) 4.2 % 11/28/22 13:20 Baso % (Auto) 1.4 % 11/28/22 13:20 Neut # (Auto) 3.53 10^3/uL (1.8-7.7) 11/28/22 13:20 Lymph # (Auto) 1.4 10^3/uL (0.8-4.8) 11/28/22 13:20 [place] # (Auto) 0.4 10^3/uL (0.2-0.9) 11/28/22 13:20 Eos # (Auto) 0.2 10^3/uL (0.0-0.8) 11/28/22 13:20 Baso # (Auto) 0.1 10^3/uL (0.0-0.1) 11/28/22 13:20 Nucleated RBC % (auto) 0 % 11/28/22 13:20 Nucleated RBCs # 0.0 /100WBC 11/28/22 13:20 Sodium 138 mmol/L (136-145) 11/28/22 13:20 Potassium 3.9 mmol/L (3.5-5.1) 11/28/22 13:20 Chloride 105 mmol/L (98-107) 11/28/22 13:20 Carbon Dioxide 25 mmol/L (22-29) 11/28/22 13:20 Anion Gap 11.9 (5-19) 11/28/22 13:20 BUN 16 mg/dL (6-20) 11/28/22 13:20 Creatinine 0.7 mg/dL (0.5-0.9) 11/28/22 13:20 GFR Calculation 91.3 mL/min (90-130) 11/28/22 13:20 Glucose 109 mg/dL (65-115) 11/28/22 13:20 Calculated Osmolality 288 mOsm/kg (285-295) 11/28/22 13:20 Calcium 9.1 mg/dL (8.5-10.5) 11/28/22 13:20 Total Bilirubin 0.2 mg/dL (0.15-1.2) 11/28/22 13:20 AST 12 U/L (0-32) 11/28/22 13:20 ALT 12 U/L (0-33) 11/28/22 13:20 Alkaline Phosphatase 81 U/L (35-105) 11/28/22 13:20 Total Protein 6.5 g/dL (6.6-8.7) L 11/28/22 13:20 Albumin 4.0 g/dL (3.5-5.2) 11/28/22 13:20 Globulin 2.5 g/dL (1.3-4.6) 11/28/22 13:20 Urine Color Yellow (Yellow) 11/28/22 13:09 Urine Appearance Clear (CLEAR) 11/28/22 13:09 Urine pH 6 (5-7) 11/28/22 13:09 Ur Specific [place] 1.020 (1.005-1.030) 11/28/22 13:09 Urine Protein Neg (Negative) 11/28/22 13:09 Urine Glucose (UA) Norm (Normal) 11/28/22 13:09 Urine Ketones Negative (Negative) 11/28/22 13:09 Urine Blood Neg (Negative) 11/28/22 13:09 Urine Nitrate Negative (Negative) 11/28/22 13:09 Urine Bilirubin Neg (Negative) 11/28/22 13:09 Urine Urobilinogen Neg mg/dL (Negative) 11/28/22 13:09 Ur Leukocyte Esterase Negative (Negative) 11/28/22 13:09 Salicylates < 0.3 mg/dL (3-10) L 11/28/22 13:20 Urine Opiates Screen Negative ng/mL (Negative) 11/28/22 13:09 Acetaminophen < 5.0 ug/mL (10-30) L 11/28/22 13:20 Ur Barbiturates Screen Negative ng/mL (Negative) 11/28/22 13:09 Ur Phencyclidine Scrn Negative ng/mL (Negative) 11/28/22 13:09 Ur Amphetamines Screen Positive ng/mL (Negative) H 11/28/22 13:09 U Benzodiazepines Scrn Negative ng/mL (Negative) 11/28/22 13:09 Urine Cocaine Screen Negative ng/mL (Negative) 11/28/22 13:09 U Marijuana (THC) Screen Positive ng/mL (Negative) H 11/28/22 13:09 Discharge Plan Discharge Patient Disposition: Admitted As Inpatient Admit Provider: Parag Daniels Clinical Impression: Depression, Methamphetamine use disorder, severe Condition: Stable Coding Level of Care Code ED Inclusion Manager for Chg Fwd Exam Comprehensive Documented by User: Clinton Crowe DO 11/29/22 05:27 HPI - Psych General: Chief Complaint: Psychiatric Symptoms Stated Complaint: 96 HOUR HOLD Time Seen by Provider: 11/28/22 11:29 PFSH ED PFSH: Medical History ADHD Bipolar disorder Herniated disc Personality disorder Psychiatric care PTSD (post-traumatic stress disorder) Surgical History History of foot surgery left foot, reconstructive due to no arch Family History Grandmother Dementia Diabetes Father Psychiatric illness Hypertension Other Bipolar disorder Denies family history of CAD (coronary artery disease) Clotting disorder Hyperlipidemia Chronic kidney disease (CKD) Anesthesia complication Bleeding disorder Lung disease Cancer Stroke Social History Smoking and tobacco status: current every day smoker cigarettes [ Other cigarette details: 1/3PPD, 30 PY, started at 12yo] Alcohol intake: never Desire information about alcohol rehabilitation?: No Desire information about substance/drug rehabilitation?: No Adopted: No Caregiver/support person: No Lives independently: Yes Current occupational status: unemployed Current gender identity: Female Special ashley needs: No Course Vital Signs: Vital signs: Vital Signs Temperature 97.5 F L 11/28/22 22:00 Pulse Rate 87 11/28/22 11:23 Respiratory Rate 20 H 11/28/22 22:00 Blood Pressure 129/80 11/28/22 22:00 Pulse Oximetry 95 11/28/22 11:23 Oxygen Delivery Me thod 11/28/22 22:00 MDM - Psych Medical Decision Making Awaiting Dr. Daniels to see the patient in the department. Care signed out to Dr. Crowe at change of shift. See final notes for diagnosis and disposition. Dr. Daniels did come down to evaluate this patient. He spoke with the patient, and the patient agreed to be admitted voluntarily to the neuropsychiatric unit. She remains medically stable Lab Data 11/28/22 12:28 11/28/22 12:28 Laboratory Results WBC 5.7 10^3/uL (4.0-10.0) 11/28/22 13:20 RBC 4.16 10^6/uL (4.1-5.3) 11/28/22 13:20 Hgb 11.5 g/dL (11.5-15.3) 11/28/22 13:20 Hct 38.1 % (37.0-47.0) 11/28/22 13:20 MCV 91.6 fl (81-99) 11/28/22 13:20 MCH 27.6 pg (28.0-34.0) L 11/28/22 13:20 MCHC 30.2 g/dL (30.0-36.0) 11/28/22 13:20 RDW 13.6 % (12.1-15.1) 11/28/22 13:20 Plt Count 272 10^3/cmm (130-400) 11/28/22 13:20 MPV 10.7 fL (7.4-10.4) H 11/28/22 13:20 Neut % (Auto) 62.6 % 11/28/22 13:20 Lymph % (Auto) 24.2 % 11/28/22 13:20 [place] % (Auto) 7.6 % 11/28/22 13:20 Eos % (Auto) 4.2 % 11/28/22 13:20 Baso % (Auto) 1.4 % 11/28/22 13:20 Neut # (Auto) 3.53 10^3/uL (1.8-7.7) 11/28/22 13:20 Lymph # (Auto) 1.4 10^3/uL (0.8-4.8) 11/28/22 13:20 [place] # (Auto) 0.4 10^3/uL (0.2-0.9) 11/28/22 13:20 Eos # (Auto) 0.2 10^3/uL (0.0-0.8) 11/28/22 13:20 Baso # (Auto) 0.1 10^3/uL (0.0-0.1) 11/28/22 13:20 Nucleated RBC % (auto) 0 % 11/28/22 13:20 Nucleated RBCs # 0.0 /100WBC 11/28/22 13:20 Sodium 138 mmol/L (136-145) 11/28/22 13:20 Potassium 3.9 mmol/L (3.5-5.1) 11/28/22 13:20 Chloride 105 mmol/L (98-107) 11/28/22 13:20 Carbon Dioxide 25 mmol/L (22-29) 11/28/22 13:20 Anion Gap 11.9 (5-19) 11/28/22 13:20 BUN 16 mg/dL (6-20) 11/28/22 13:20 Creatinine 0.7 mg/dL (0.5-0.9) 11/28/22 13:20 GFR Calculation 91.3 mL/min (90-130) 11/28/22 13:20 Glucose 109 mg/dL (65-115) 11/28/22 13:20 Calculated Osmolality 288 mOsm/kg (285-295) 11/28/22 13:20 Calcium 9.1 mg/dL (8.5-10.5) 11/28/22 13:20 Total Bilirubin 0.2 mg/dL (0.15-1.2) 11/28/22 13:20 AST 12 U/L (0-32) 11/28/22 13:20 ALT 12 U/L (0-33) 11/28/22 13:20 Alkaline Phosphatase 81 U/L (35-105) 11/28/22 13:20 Total Protein 6.5 g/dL (6.6-8.7) L 11/28/22 13:20 Albumin 4.0 g/dL (3.5-5.2) 11/28/22 13:20 Globulin 2.5 g/dL (1.3-4.6) 11/28/22 13:20 Urine Color Yellow (Yellow) 11/28/22 13:09 Urine Appearance Clear (CLEAR) 11/28/22 13:09 Urine pH 6 (5-7) 11/28/22 13:09 Ur Specific [place] 1.020 (1.005-1.030) 11/28/22 13:09 Urine Protein Neg (Negative) 11/28/22 13:09 Urine Glucose (UA) Norm (Normal) 11/28/22 13:09 Urine Ketones Negative (Negative) 11/28/22 13:09 Urine Blood Neg (Negative) 11/28/22 13:09 Urine Nitrate Negative (Negative) 11/28/22 13:09 Urine Bilirubin Neg (Negative) 11/28/22 13:09 Urine Urobilinogen Neg mg/dL (Negative) 11/28/22 13:09 Ur Leukocyte Esterase Negative (Negative) 11/28/22 13:09 Salicylates < 0.3 mg/dL (3-10) L 11/28/22 13:20 Urine Opiates Screen Negative ng/mL (Negative) 11/28/22 13:09 Acetaminophen < 5.0 ug/mL (10-30) L 11/28/22 13:20 Ur Barbiturates Screen Negative ng/mL (Negative) 11/28/22 13:09 Ur Phencyclidine Scrn Negative ng/mL (Negative) 11/28/22 13:09 Ur Amphetamines Screen Positive ng/mL (Negative) H 11/28/22 13:09 U Benzodiazepines Scrn Negative ng/mL (Negative) 11/28/22 13:09 Urine Cocaine Screen Negative ng/mL (Negative) 11/28/22 13:09 U Marijuana (THC) Screen Positive ng/mL (Negative) H 11/28/22 13:09 Discharge Plan Discharge Patient Disposition: Admitted As Inpatient Admit Provider: Parag Daniels Clinical Impression: Depression, Methamphetamine use disorder, severe Condition: Stable Coding Level of Care Code ED Inclusion Manager for Shilag Fwd Exam Comprehensive
[2022-11-28 13:29] LABS: Basophils # 0.1 10^3/uL (0.0-0.1); Basophils % 1.4 %; Eosinophils # 0.2 10^3/uL (0.0-0.8); Eosinophils % 4.2 %; Hematocrit 38.1 % (37.0-47.0); Hemoglobin 11.5 g/dL (11.5-15.3); Lymphocytes # 1.4 10^3/uL (0.8-4.8); Lymphocytes % 24.2 %; Mean Corpuscular HGB Conc 30.2 g/dL (30.0-36.0); Mean Corpuscular Hemoglobin 27.6 pg (28.0-34.0); Mean Corpuscular Volume 91.6 fl (81-99); Mean Platelet Volume 10.7 fL (7.4-10.4); Monocytes # 0.4 10^3/uL (0.2-0.9); Monocytes % 7.6 %; Neutrophils # 3.53 10^3/uL (1.8-7.7); Neutrophils % 62.6 %; Nucleated Red Blood Cells % 0 %; Platelet Count 272 10^3/cmm (130-400); Red Blood Count 4.16 10^6/uL (4.1-5.3); Red Cell Distribution Width 13.6 % (12.1-15.1); White Blood Count 5.7 10^3/uL (4.0-10.0)
--- NOTE | 2022-11-28 13:33 | PC.PHAR ---
PT STATES SHE TAKES CARE OF HER OWN MEDICATIONS-RX FILLED 10/24/22 30D/S LATUDA 20MG DAILY RX WRITTEN FOR 40MG DAILY 11/04/22 PT STATES STILL TAKING THE 20MG QAM-PT STATES SHE NEEDS A REFILL ON TIZANIDINE 4MG BID PRN LAST FILLED 11/05/22 15D/S-NOTES ARE MADE IN THE PHARMACY COMMENTS
[2022-11-28 13:39] LABS: Add Urine Microscopic? NO; Bilirubin Urine Neg (Negative); Blood Urine Neg (Negative); Glucose Urine UA Norm (Normal); Ketones Urine Negative (Negative); Leukocyte Esterase Urine Negative (Negative); Nitrate Urine Negative (Negative); Protein Urine Neg (Negative); Urine Appearance Clear (CLEAR); Urine Color Yellow (Yellow); Urobilinogen Urine Neg (Negative); pH Urine 6 (5-7)
[2022-11-28 13:40] LABS: Charge for UA Resulting for Rev
[2022-11-28 13:47] LABS: Alanine Aminotransferase 12 U/L (0-33); Alkaline Phosphatase 81 U/L (35-105); Anion Gap 11.9 (5-19); Aspartate Amino Transferase 12 U/L (0-32); Blood Urea Nitrogen 16 mg/dL (6-20); Calcium 9.1 mg/dL (8.5-10.5); Carbon Dioxide 25 mmol/L (22-29); Chloride 105 mmol/L (98-107); Creatinine Clr Calc Pharmacy 102.0175; Globulin 2.5 g/dL (1.3-4.6); Glomerular Filtration Rate 91.3 mL/min (90-130); Glucose 109 mg/dL (65-115); Osmolality Calculated 288 mOsm/kg (285-295); Potassium 3.9 mmol/L (3.5-5.1); Sodium 138 mmol/L (136-145); Total Bilirubin 0.2 mg/dL (0.15-1.2); Total Protein 6.5 g/dL (6.6-8.7)
[2022-11-28 13:48] LABS: Amphetamines Screen Urine Positive (Negative); Barbiturates Screen Urine Negative (Negative); Benzodiazepines Screen Urine Negative (Negative); Cocaine Screen Urine Negative (Negative); Opiate Screen Urine Negative (Negative); PCP Screen Urine Negative (Negative); THC Screen Urine Positive (Negative)
[2022-11-28 13:49] LABS: Acetaminophen < 5.0 ug/mL (10-30); Salicylate < 0.3 mg/dL (3-10)
--- NOTE | 2022-11-28 15:58 | PC.NURSE ---
Pt had lunch, has been sleeping most of the day
[2022-11-28 18:46] VITALS: BP 127/71
[2022-11-28 21:49] VITALS: RESP 18
[2022-11-28 22:00] VITALS: BP 129/80; RESP 20; TEMP 36.4
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
[2022-11-29] MEDS: pregabalin 150 mg Capsule PO ×2 (10:39→17:58)
[2022-11-29] MEDS: lurasidone 20 mg Tablet PO (10:39)
[2022-11-29] MEDS: fluticasone nasal spray 16gm Btl 2 SPRAY INTRANASAL (10:40)
[2022-11-29] MEDS: acetaminophen 325 mg Tablet 650 MG PO (10:42)
[2022-11-29] MEDS: nicotine 2 mg Gum BUCCAL ×2 (13:04→15:38)
[2022-11-29 14:00] VITALS: BP 115/74; PULSE 87; RESP 17; TEMP 36.8; O2SAT 97
[2022-11-29] MEDS: hyDROXYzine 25 mg Capsule 50 MG PO (15:39)
--- NOTE | 2022-11-29 15:40 | PC.NURSE ---
prn medication Patient states she is feeling anxious and very nervous. Vistaril 50mg given PO.
--- NOTE | 2022-11-29 16:40 | PC.NURSE ---
PRN FOLLOW UP AND ADMINISTRATION Patient states she is still feeling anxious and hearing voices. States I always hear them, but the are bothering me. Zydis 5mg given PO.
[2022-11-29] MEDS: OLANZapine 5 mg ODT PO (16:47)
--- NOTE | 2022-11-29 17:35 | PC.NURSE ---
prn follow up Patient in day room with others, positive interactions noted and not visibly responding to internal stimuli. Will continue to monitor.
[2022-11-29 22:00] VITALS: RESP 18
[2022-11-30] MEDS: lurasidone 20 mg Tablet PO (08:20)
[2022-11-30] MEDS: pregabalin 150 mg Capsule PO ×2 (08:20→17:47)
[2022-11-30] MEDS: OLANZapine 5 mg ODT PO (08:23)
[2022-11-30] MEDS: fluticasone nasal spray 16gm Btl 2 SPRAY INTRANASAL (08:23)
[2022-11-30] MEDS: nicotine 21 mg Patch 1 PATCH TRANSDERMA (08:32)
--- NOTE | 2022-11-30 08:48 | PC.NURSE ---
PRN Paralegal Legal Secretary Patient approached nurses' station wringing her hands with pressured speech. She asked what as needed medications meant and if she could have anything to help her nerves she would appreciate it. Zyprexa 5 mg ODT administered.
[2022-11-30] MEDS: duloxetine 20 mg Capsule PO ×2 (08:58→17:47)
[2022-11-30] MEDS: polyethylene glycol 3350 Pkt 17 gm PO (08:58)
[2022-11-30] MEDS: acetaminophen 325 mg Tablet 650 MG PO (09:41)
[2022-11-30] MEDS: haloperidol 5 mg Tablet PO (10:11)
--- NOTE | 2022-11-30 10:12 | PC.NURSE ---
PRN Heel Shaper Patient took zyprexa almost 2 hours ago and is still wringing her hands, has pressured speech, is brushing her hair quickly and vigorously, and is asking if she could possibly have something for anxiety. Administered haldol 5 mg PO.
--- NOTE | 2022-11-30 11:09 | P.NPUPN_ITS ---
Subjective NPU Subjective: Patient presented today reporting that she is having depression and is also continued to talk about pain issues. We discussed the risks, benefits and alternatives of a trial of Cymbalta 20 mg p.o. twice daily and she understood and agreed to proceed as documented in this note. We agreed to work with the treatment team tomorrow to try to identify sober living treatment options that would be viable for her situation. Mental Status Exam 2 MSE Comments: This is a slender white female in hospital scrubs with limited grooming and adequate eye contact. Absent dentition. No abnormal movements except for mild psychomotor retardation. More cooperative with exam in no acute distress. Speech was more normal rate and volume. Mood described as less depressed than yesterday, affect congruent and less tearful. Thought process linear and more organized. Thought content: Patient denies suicidal or homicidal ideation, there was paranoia reported and some paranoia noted, she did not appear to be attending to internal stimuli. Attention and concentration were improving and memory was more reliable but not were formally tested. She was alert and oriented x3. Insight and judgment were improving and impulse control are impaired. Vitals/I&O/Wt Last Vital Signs Temp 98.2 F 11/29/22 14:00 Pulse 87 11/29/22 14:00 Resp 18 11/29/22 22:00 BP 115/74 11/29/22 14:00 Pulse Ox 97 11/29/22 14:00 O2 Del Method 11/28/22 22:00 Weight last 48 hrs Weight 63.503 kg Data NPU 11/28/22 13:20 11/28/22 13:20 A&P Assessment and plan (1) Acute psychosis: (2) Bipolar disorder: (3) Personality disorder: (4) PTSD (post-traumatic stress disorder): (5) Methamphetamine use disorder, severe: (6) Cannabis use disorder: Plan This is a 42-year-old white female with a long history of trauma, addiction and mental health diagnoses including bipolar disorder who presents with psychotic symptoms on a 96-hour hold in part secondary to her active methamphetamine use. 1. Continue current medication. Plan to increase the Latuda in a couple of days. Start Cymbalta 20 mg p.o. twice daily. 2. Continue every 15 minute checks for safety. 3. Encourage individual, group and milieu therapy once he has engaged. 4. Encourage sobriety treatment after discharge to the hospital care to which she is willing to commit. Work on continuing previous plan for rehab. Involuntary Hold Information 96 Hour Hold: 96 Hour Involuntary Admission: Yes 96 Hour Hold Ending Date: 12/04/22 96 Hour Hold Ending Time: 21:07 Attestations NPU Medical Necessity Statement*: Inpatient hospitalization is medically necessary and be clinically appropriate vet at this time. We will monitor/initiate medications and make changes as indicated. Likely length of stay 3-5 days. Coding Level of Care Code Acute Wing Commander for Dahiana Fwd Diagnoses Acute psychosis F23 Bipolar disorder F31.9 Personality disorder F60.9 PTSD (post-traumatic stress disorder) F43.10 Methamphetamine use disorder, severe F15.20 Cannabis use disorder F12.90
[2022-11-30] MEDS: hyDROXYzine 25 mg Capsule 50 MG PO (11:39)
--- NOTE | 2022-11-30 11:40 | PC.NURSE ---
PRN Shipping And Receiving Specialist Hydroxyzine 50 mg administered due to patient excessively talking and saying she couldn't calm down and her mind wouldn't quit racing.
[2022-11-30 14:00] VITALS: RESP 18
[2022-11-30] MEDS: ibuprofen 600 mg Tablet PO (17:48)
[2022-11-30] MEDS: trazodone 50 mg Tablet PO (19:52)
[2022-12-01 05:23] VITALS: RESP 16
[2022-12-01] MEDS: fluticasone nasal spray 16gm Btl 2 SPRAY INTRANASAL (08:07)
[2022-12-01] MEDS: pregabalin 150 mg Capsule PO ×2 (08:07→18:05)
[2022-12-01] MEDS: lurasidone 20 mg Tablet PO (08:07)
[2022-12-01] MEDS: duloxetine 20 mg Capsule PO ×2 (08:07→18:05)
[2022-12-01] MEDS: nicotine 21 mg Patch 1 PATCH TRANSDERMA (08:13)
[2022-12-01] MEDS: polyethylene glycol 3350 Pkt 17 gm PO (08:44)
[2022-12-01] MEDS: hyDROXYzine 25 mg Capsule 50 MG PO ×2 (09:11→18:37)
--- NOTE | 2022-12-01 09:12 | PC.NURSE ---
PRN Wedding Day Coordinator Patient approached nurses' station in a panicked state with pressured speech and fidgeting. She stated she was having trouble finding words because she was, having a panic attack. While administering the medication she kept saying, oh God this is horrible, oh God. Hydroxyzine 50mg administered PO.
[2022-12-01] MEDS: ibuprofen 600 mg Tablet PO (11:02)
[2022-12-01] MEDS: atomoxetine 40 mg Capsule PO (12:20)
[2022-12-01] MEDS: OLANZapine 5 mg ODT PO (13:43)
--- NOTE | 2022-12-01 13:44 | PC.NURSE ---
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 Patient given zyprexa 10mg ODT.
[2022-12-01 14:00] VITALS: BP 120/79; PULSE 102; RESP 18; TEMP 36.8; O2SAT 98
[2022-12-01] MEDS: acetaminophen 325 mg Tablet 650 MG PO (15:42)
--- NOTE | 2022-12-01 17:01 | W.PM.NPUPNS ---
Subjective NPU Subjective: Patient presented today fairly hyperkinetic. Records suggest the diagnosis of ADHD and a previous history of prescription of Strattera that was not truly adhered to. We discussed the risks, benefits and alternatives of a trial of Strattera 40 mg p.o. daily with meals and she understood and agreed to proceed as is documented in this note. Additionally she signed up for [facility] and is working with the treatment team to be connected with that. She reports that she has been in contact with her family and they are happy that she is taking this more seriously and seemed to be open to her returning there to live. Mental Status Exam MSE Comments: This is a slender white female in hospital scrubs with limited grooming and adequate eye contact. Absent dentition. No abnormal movements except for mild psychomotor agitation. More cooperative with exam in no acute distress. Speech was increased rate but normal volume. Mood described as better, affect congruent and less tearful. Thought process linear and more kinetic. Thought content: Patient denies suicidal or homicidal ideation, there was no delusions reported but some possible daniel/grandiosity, she did not appear to be attending to internal stimuli. Attention and concentration were improving and memory was more reliable but none were formally tested. She was alert and oriented x3. Insight and judgment were improving and impulse control are impaired. Vitals/I&O/Wt Last Vital Signs Temp 97.7 F 12/01/22 22:00 Pulse 84 12/01/22 22:00 Resp 16 12/01/22 22:00 BP 108/76 12/01/22 22:00 Pulse Ox 98 12/01/22 22:00 O2 Del Method 11/28/22 22:00 Data NPU 11/28/22 13:20 11/28/22 13:20 A&P Assessment and plan (1) Acute psychosis: (2) Bipolar disorder: (3) Personality disorder: (4) PTSD (post-traumatic stress disorder): (5) Methamphetamine use disorder, severe: (6) Cannabis use disorder: Plan This is a 42-year-old white female with a long history of trauma, addiction and mental health diagnoses including bipolar disorder who presents with psychotic symptoms on a 96-hour hold in part secondary to her active methamphetamine use. 1. Continue current medication. Plan to increase the Latuda in a couple of days. Started Cymbalta 20 mg p.o. twice daily. Strattera 40 mg p.o. daily with meal. 2. Continue every 15 minute checks for safety. 3. Encourage individual, group and milieu therapy once he has engaged. 4. Encourage sobriety treatment after discharge to the hospital care to which she is willing to commit. Work on continuing previous plan for rehab. Involuntary Hold Information 96 Hour Hold: 96 Hour Involuntary Admission: Yes 96 Hour Hold Ending Date: 12/04/22 96 Hour Hold Ending Time: 21:07 Attestations NPU Medical Necessity Statement*: Inpatient hospitalization is medically necessary and be clinically appropriate vet at this time. We will monitor/initiate medications and make changes as indicated. Likely length of stay 2 to 4 days. 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
--- NOTE | 2022-12-01 18:38 | PC.NURSE ---
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 She is stating she can't settle down. Administered PO hydroxyzine 50mg.
[2022-12-01] MEDS: trazodone 50 mg Tablet PO (19:27)
[2022-12-01 22:00] VITALS: BP 108/76; PULSE 84; RESP 16; TEMP 36.5; O2SAT 98
[2022-12-02] MEDS: ibuprofen 600 mg Tablet PO ×2 (05:58→13:11)
[2022-12-02 06:00] VITALS: BP 118/89; PULSE 100; RESP 18; TEMP 36.5; O2SAT 98
[2022-12-02] MEDS: nicotine 21 mg Patch 1 PATCH TRANSDERMA (07:59)
[2022-12-02] MEDS: fluticasone nasal spray 16gm Btl 2 SPRAY INTRANASAL (07:59)
[2022-12-02] MEDS: pregabalin 150 mg Capsule PO ×2 (08:00→17:59)
[2022-12-02] MEDS: duloxetine 20 mg Capsule PO ×2 (08:00→17:59)
[2022-12-02] MEDS: lurasidone 20 mg Tablet PO (08:00)
[2022-12-02] MEDS: atomoxetine 40 mg Capsule PO (08:00)
[2022-12-02] MEDS: polyethylene glycol 3350 Pkt 17 gm PO (08:31)
[2022-12-02] MEDS: hyDROXYzine 25 mg Capsule 50 MG PO (11:36)
[2022-12-02] MEDS: magnesium hydroxide 30 mL UDC PO (13:12)
[2022-12-02 14:00] VITALS: PULSE 85; RESP 19; TEMP 36.2; O2SAT 97
--- NOTE | 2022-12-02 14:59 | W.PM.NPUPNS ---
Subjective NPU Subjective: Patient presented today reporting that she feels like she is doing much better and is feeling optimistic about discharge. Her parents reportedly are invested in her coming back home if she is invested in treatment. She reports that she is awaiting hearing from [facility] tomorrow to see when she would be able to start. We discussed the risks, benefits and alternatives of increasing her Latuda to 40 mg daily and she understood and agreed to proceed as is documented in this note. We discussed the likelihood of discharge in the next 48 hours. Mental Status Exam MSE Comments: This is a slender white female in hospital scrubs with limited grooming and adequate eye contact. Absent dentition. No abnormal movements except for mild psychomotor agitation. More cooperative with exam in no acute distress. Speech was increased rate but normal volume. Mood described as better, affect congruent but hyper. Thought process linear and more kinetic. Thought content: Patient denies suicidal or homicidal ideation, there was no delusions reported but some possible daniel/grandiosity, she did not appear to be attending to internal stimuli. Attention and concentration were improving and memory was more reliable but none were formally tested. She was alert and oriented x3. Insight and judgment were improving and impulse control are limited but improving. Vitals/I&O/Wt Last Vital Signs Temp 97.1 F L 12/02/22 14:00 Pulse 85 12/02/22 14:00 Resp 19 H 12/02/22 14:00 BP 118/89 12/02/22 06:00 Pulse Ox 97 12/02/22 14:00 O2 Del Method 12/02/22 14:00 Data NPU 11/28/22 13:20 11/28/22 13:20 A&P Assessment and plan (1) Acute psychosis: (2) Bipolar disorder: (3) Personality disorder: (4) PTSD (post-traumatic stress disorder): (5) Methamphetamine use disorder, severe: (6) Cannabis use disorder: Plan This is a 42-year-old white female with a long history of trauma, addiction and mental health diagnoses including bipolar disorder who presents with psychotic symptoms on a 96-hour hold in part secondary to her active methamphetamine use. 1. Continue current medication. Increase Latuda to 40 mg p.o. daily. Started Cymbalta 20 mg p.o. twice daily. Started Strattera 40 mg p.o. daily with meal. 2. Continue every 15 minute checks for safety. 3. Encourage individual, group and milieu therapy once he has engaged. 4. Encourage sobriety treatment after discharge to the hospital care to which she is willing to commit. Work on continuing previous plan for rehab. Involuntary Hold Information 96 Hour Hold: 96 Hour Involuntary Admission: Yes 96 Hour Hold Ending Date: 12/04/22 96 Hour Hold Ending Time: 21:07 Attestations NPU Medical Necessity Statement*: Inpatient hospitalization is medically necessary and be clinically appropriate vet at this time. We will monitor/initiate medications and make changes as indicated. Likely length of stay 1-3 days. 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
[2022-12-02 15:56] VITALS: BP 122/78
[2022-12-02 21:04] VITALS: BP 122/78; PULSE 89; RESP 19; TEMP 36.7; O2SAT 97
[2022-12-02] MEDS: trazodone 50 mg Tablet PO (21:24)
[2022-12-03 06:00] VITALS: BP 120/86; PULSE 71; RESP 18; TEMP 36.6; O2SAT 100
[2022-12-03] MEDS: atomoxetine 40 mg Capsule PO (06:14)
[2022-12-03] MEDS: duloxetine 20 mg Capsule PO (08:10)
[2022-12-03] MEDS: pregabalin 150 mg Capsule PO (08:10)
[2022-12-03] MEDS: lurasidone 20 mg Tablet PO (08:11)
[2022-12-03] MEDS: fluticasone nasal spray 16gm Btl 2 SPRAY INTRANASAL (08:12)
[2022-12-03] MEDS: magnesium hydroxide 30 mL UDC PO (08:15)
[2022-12-03] MEDS: acetaminophen 325 mg Tablet 650 MG PO (08:15)
[2022-12-03] MEDS: nicotine 21 mg Patch 1 PATCH TRANSDERMA (08:16)
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
[2022-12-03 10:23] VITALS: BP 120/86; PULSE 71; RESP 18; TEMP 36.6; O2SAT 100
[2022-12-03] MEDS: hyDROXYzine 25 mg Capsule 50 MG PO (10:32)
[2022-12-03] MEDS: lurasidone 20 mg Tablet 40 MG PO (10:33)
== END 2022-12-03 10:36 | disposition home or self-care (01) | DRG 885 ==
LOC: ER 21:06 → NP 21:44
PROVIDERS: Family Medicine; Admitting Provider Psychiatry & Neurology Psychiatry; Emergency Provider Emergency Medicine; PCP Family Medicine; Visit Provider Psychiatry & Neurology Psychiatry
DX: F23 Brief psychotic disorder (principal); F15.20 Other stimulant dependence, uncomplicated; F12.90 Cannabis use, unspecified, uncomplicated; F90.9 Attention-deficit hyperactivity disorder, unspecified type; F43.10 Post-traumatic stress disorder, unspecified; F31.9 Bipolar disorder, unspecified; F17.210 Nicotine dependence, cigarettes, uncomplicated; F60.9 Personality disorder, unspecified; Z79.891 Long term (current) use of opiate analgesic
CPT/HCPCS: 80053; 80306; 80307; 81003; 85025; 97150; 97165; 99285

== ENCOUNTER 2022-12-26 22:38 | Inpatient (IN) | payer MEDICAID, SELFPAY ==
[2022-12-26 22:54] VITALS: BP 138/100; PULSE 93; RESP 16; TEMP 36.7; O2SAT 98
--- NOTE | 2022-12-26 23:01 | ED.C_ITS ---
HPI - Psych General: Chief Complaint: Psychiatric Symptoms Stated Complaint: 96 HOUR HOLD Time Seen by Provider: 12/26/22 22:39 Source: patient and police Mode of arrival: other (police) Limitations: no limitations History of Present Illness: 42-year-old female is here with police on a 96- hour hold she has a history of methamphetamine abuse per police family put under 96 because she has been using meth again she was threatening to harm them along with harm herself here patient is cleared under the influence of methamphetamine with some flight of ideas she denies any suicidality at this time. Associated symptoms: Reports depression Review of Systems Const: Denies: fever(s), chills, body aches or change in appetite Eyes: Denies: blurry vision or eye discomfort ENMT: Denies: throat pain or dental pain Card: Denies: chest pain Resp: Denies: dyspnea GI: Denies: abdominal pain, nausea, vomiting or diarrhea : Denies: dysuria Musc: Denies: neck pain or back pain Skin/Breast: Denies: rash Neuro: Denies: headache(s) Psych: Reports: depression and paranoia Andrzej/Lymph: Denies: easy bruising All/Imm: Denies: urticaria PFSH ED PFSH: Medical History ADHD Bipolar disorder Herniated disc Methamphetamine use disorder, moderate, in early remission Personality disorder Psychiatric care PTSD (post-traumatic stress disorder) Surgical History History of foot surgery left foot, reconstructive due to no arch Family History Grandmother Dementia Diabetes Father Psychiatric illness Hypertension Other Bipolar disorder Denies family history of CAD (coronary artery disease) Clotting disorder Hyperlipidemia Chronic kidney disease (CKD) Anesthesia complication Bleeding disorder Lung disease Cancer Stroke Social History Smoking and tobacco status: current every day smoker cigarettes [ Other cigarette details: 1/3PPD, 30 PY, started at 12yo] Alcohol intake: never Desire information about alcohol rehabilitation?: No Desire information about substance/drug rehabilitation?: No Adopted: No Caregiver/support person: No Lives independently: Yes Current occupational status: unemployed Current gender identity: Female Special ashley needs: No Female Reproductive History: Date of last menstrual period: 03/23/22 Para: 2 Spontaneous abortions: Yes Physical Exam Const: COMMON NORMALS: patient oriented x3 GENERAL APPEARANCE: disheveled HENMT: COMMON NORMALS: normocephalic and atraumatic HEAD & SCALP: normocephalic and atraumatic Eye: COMMON NORMALS: Equal, round and reactive pupils present and EOMs intact bilaterally PUPIL: Yes Equal, round and reactive pupils present Neck/C-Spine: COMMON NORMALS: full ROM and supple Chest: COMMONS NORMALS: normal inspection of the chest and normal palpation of entire chest wall Resp: COMMON NORMALS: normal respiratory effort, No retractions, No use of a ccessory muscles and clear to auscultation bilaterally AUSCULTATION: clear to auscultation bilaterally Cardio: COMMON NORMALS: regular rate, regular rhythm and No murmurs present (Cardio) RATE: regular rate RHYTHM: regular rhythm GI: COMMON NORMALS: Normal to inspection, nondistended, normoactive bowel sounds present, Soft to palpation, non-tender and no masses PALPATION: Yes Soft to palpation Extremity: COMMON NORMALS: normal to inspection and full ROM Neuro: COMMON NORMALS: patient oriented x3, moves all extremities and no focal motor deficits Psych: COMMON NORMALS: cooperative APPEARANCE: Yes unkempt ATTITUDE: Yes paranoid and Yes bizarre Skin: COMMON NORMALS: no rashes or lesions noted and no wounds GENERAL SKIN EXAM: no rashes or lesions noted MDM - Psych Medical Decision Making Patient presents here on a 96-hour hold with police patient had been making statements at home harming self or others she is under the influence of meth. Extremely paranoid with acute psychosis. Lab Data 12/26/22 22:57 12/26/22 22:57 Laboratory Results WBC 6.9 10^3/uL (4.0-10.0) 12/26/22 22:57 RBC 4.44 10^6/uL (4.1-5.3) 12/26/22 22:57 Hgb 12.0 g/dL (11.5-15.3) 12/26/22 22:57 Hct 38.6 % (37.0-47.0) 12/26/22 22:57 MCV 86.9 fl (81-99) 12/26/22 22:57 MCH 27.0 pg (28.0-34.0) L 12/26/22 22:57 MCHC 31.1 g/dL (30.0-36.0) 12/26/22 22:57 RDW 14.8 % (12.1-15.1) 12/26/22 22:57 Plt Count 307 10^3/cmm (130-400) 12/26/22 22:57 MPV 9.6 fL (7.4-10.4) 12/26/22 22:57 Neut % (Auto) 65.4 % 12/26/22 22:57 Lymph % (Auto) 20.3 % 12/26/22 22:57 Elliott % (Auto) 10.8 % 12/26/22 22:57 Eos % (Auto) 2.3 % 12/26/22 22:57 Baso % (Auto) 0.9 % 12/26/22 22:57 Neut # (Auto) 4.48 10^3/uL (1.8-7.7) 12/26/22 22:57 Lymph # (Auto) 1.4 10^3/uL (0.8-4.8) 12/26/22 22:57 Elliott # (Auto) 0.7 10^3/uL (0.2-0.9) 12/26/22 22:57 Eos # (Auto) 0.2 10^3/uL (0.0-0.8) 12/26/22 22:57 Baso # (Auto) 0.1 10^3/uL (0.0-0.1) 12/26/22 22:57 Nucleated RBC % (auto) 0 % 12/26/22 22:57 Nucleated RBCs # 0.0 /100WBC 12/26/22 22:57 Sodium 140 mmol/L (136-145) 12/26/22 22:57 Potassium 4.4 mmol/L (3.5-5.1) 12/26/22 22:57 Chloride 100 mmol/L (98-107) 12/26/22 22:57 Carbon Dioxide 26 mmol/L (22-29) 12/26/22 22:57 Anion Gap 18.4 (5-19) 12/26/22 22:57 BUN 11 mg/dL (6-20) 12/26/22 22:57 Creatinine 0.8 mg/dL (0.5-0.9) 12/26/22 22:57 GFR Calculation 78.3 mL/min (90-130) L 12/26/22 22:57 Glucose 118 mg/dL (65-115) H 12/26/22 22:57 Calculated Osmolality 290 mOsm/kg (285-295) 12/26/22 22:57 Calcium 9.9 mg/dL (8.5-10.5) 12/26/22 22:57 Total Bilirubin 0.5 mg/dL (0.15-1.2) 12/26/22 22:57 AST 45 U/L (0-32) H 12/26/22 22:57 ALT 25 U/L (0-33) 12/26/22 22:57 Alkaline Phosphatase 104 U/L (35-105) 12/26/22 22:57 Total Protein 7.8 g/dL (6.6-8.7) 12/26/22 22:57 Albumin 5.2 g/dL (3.5-5.2) 12/26/22 22:57 Globulin 2.6 g/dL (1.3-4.6) 12/26/22 22:57 Salicylates < 0.3 mg/dL (3-10) L 12/26/22 22:57 Acetaminophen < 5.0 ug/mL (10-30) L 12/26/22 22:57 Ethyl Alcohol < 10 mg/dL (0-10) 12/26/22 22:57 Discharge Plan Discharge Patient Disposition: Admitted As Inpatient Admit Provider: Parag Daniels Clinical Impression: Methamphetamine use disorder, severe, Acute psychosis, Suicidal ideation Condition: Stable Coding Level of Care Code ED Human Resources Benefits Coordinator for Chg Fwd Exam Comprehensive
[2022-12-26 23:03] LABS: Basophils # 0.1 10^3/uL (0.0-0.1); Basophils % 0.9 %; Eosinophils # 0.2 10^3/uL (0.0-0.8); Eosinophils % 2.3 %; Hematocrit 38.6 % (37.0-47.0); Lymphocytes # 1.4 10^3/uL (0.8-4.8); Lymphocytes % 20.3 %; Mean Corpuscular HGB Conc 31.1 g/dL (30.0-36.0); Mean Corpuscular Volume 86.9 fl (81-99); Mean Platelet Volume 9.6 fL (7.4-10.4); Monocytes # 0.7 10^3/uL (0.2-0.9); Monocytes % 10.8 %; Neutrophils # 4.48 10^3/uL (1.8-7.7); Neutrophils % 65.4 %; Nucleated Red Blood Cells % 0 %; Platelet Count 307 10^3/cmm (130-400); Red Blood Count 4.44 10^6/uL (4.1-5.3); Red Cell Distribution Width 14.8 % (12.1-15.1); White Blood Count 6.9 10^3/uL (4.0-10.0)
[2022-12-26 23:21] LABS: Alanine Aminotransferase 25 U/L (0-33); Albumin Level 5.2 g/dL (3.5-5.2); Alkaline Phosphatase 104 U/L (35-105); Anion Gap 18.4 (5-19); Aspartate Amino Transferase 45 U/L (0-32); Blood Urea Nitrogen 11 mg/dL (6-20); Calcium 9.9 mg/dL (8.5-10.5); Carbon Dioxide 26 mmol/L (22-29); Chloride 100 mmol/L (98-107); Globulin 2.6 g/dL (1.3-4.6); Glomerular Filtration Rate 78.3 mL/min (90-130); Glucose 118 mg/dL (65-115); Osmolality Calculated 290 mOsm/kg (285-295); Potassium 4.4 mmol/L (3.5-5.1); Sodium 140 mmol/L (136-145); Total Bilirubin 0.5 mg/dL (0.15-1.2); Total Protein 7.8 g/dL (6.6-8.7)
[2022-12-26 23:25] LABS: Acetaminophen < 5.0 ug/mL (10-30); Alcohol Level < 10 mg/dL (0-10); Salicylate < 0.3 mg/dL (3-10)
[2022-12-26 23:39] VITALS: BP 139/92; PULSE 90; RESP 18; O2SAT 99
--- NOTE | 2022-12-26 23:52 | PC.NURSE ---
PT STATES SHE IS STILL NOT ABLE TO VOID. WATER GIVEN.
[2022-12-27 00:03] VITALS: BP 139/92; PULSE 90; RESP 18; O2SAT 99
[2022-12-27 00:10] VITALS: BP 167/100; PULSE 86; RESP 18; TEMP 36.4; O2SAT 99
--- NOTE | 2022-12-27 01:08 | PC.NURSE ---
pt admitted to [facility] from ED under 96 hour hold. pt arrived somewhat anxious and unable to focus and cooperative for assessment. pt answering questions with inappropriate answers. asked pt if she felt suicidal and pt states 68 and peanut butter sandwiches . each question had similar type of answer. pt did answer no to being asked of she was taking medications at home. pt grasping at things in the air that are no there. safety search completed with much encouragement. pt states i am not crazy and don't belong here in [facility]. this is [facility] urena and god and i hate their blue eyes . no other issues voiced or noted at this time. will continue to monitor and try to assess at a later time when pt is more calm.
[2022-12-27] MEDS: OLANZapine 5 mg ODT PO ×3 (02:50→21:14)
[2022-12-27] MEDS: nicotine 4 mg lozenge MUCOUS MEM (06:06)
[2022-12-27] MEDS: ibuprofen 600 mg Tablet PO (09:09)
[2022-12-27] MEDS: pregabalin 150 mg Capsule PO ×2 (09:10→18:03)
[2022-12-27] MEDS: lurasidone 20 mg Tablet 40 MG PO (09:10)
[2022-12-27] MEDS: atomoxetine 40 mg Capsule 80 MG PO (09:10)
[2022-12-27] MEDS: hyDROXYzine 25 mg Capsule 50 MG PO ×2 (09:10→21:13)
[2022-12-27] MEDS: duloxetine 60 mg Capsule PO (09:10)
[2022-12-27] MEDS: fluticasone nasal spray 16gm Btl 2 SPRAY INTRANASAL (09:11)
--- NOTE | 2022-12-27 12:27 | PC.NURSE ---
Addendum entered by Destini Callejas RN 12/27/22 12:28: Pt. been very anxious this today. noted rambling and pressured speech with flight of idea. Prn vistaril given earlier this morning as ordered. At nurse's station c/o being here against her will and needing something for her nerves. Very agitated. PRN zyprexa given as prescribed. In room talking to self at present. Refused to give urine sample. Original Note: Patient been very anxious
[2022-12-27] MEDS: nicotine 21 mg Patch 1 PATCH TRANSDERMA (12:50)
[2022-12-27] MEDS: tizanidine 4 mg Tablet PO ×2 (12:50→21:13)
[2022-12-27 14:00] VITALS: RESP 17
[2022-12-27 14:04] LABS: Amphetamines Screen Urine Positive (Negative); Barbiturates Screen Urine Negative (Negative); Benzodiazepines Screen Urine Negative (Negative); Cocaine Screen Urine Negative (Negative); Opiate Screen Urine Negative (Negative); PCP Screen Urine Negative (Negative); THC Screen Urine Positive (Negative)
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
[2022-12-27 17:26] LABS: HCG Qualitative Urine. Negative (Negative)
[2022-12-27] MEDS: trazodone 100 mg Tablet PO (21:13)
[2022-12-28] MEDS: atomoxetine 40 mg Capsule 80 MG PO (08:36)
[2022-12-28] MEDS: lurasidone 20 mg Tablet 40 MG PO (08:37)
[2022-12-28] MEDS: tizanidine 4 mg Tablet PO (08:38)
[2022-12-28] MEDS: pregabalin 150 mg Capsule PO ×2 (08:38→17:18)
[2022-12-28] MEDS: duloxetine 60 mg Capsule PO (08:38)
[2022-12-28] MEDS: fluticasone nasal spray 16gm Btl 2 SPRAY INTRANASAL (08:39)
[2022-12-28] MEDS: nicotine 21 mg Patch 1 PATCH TRANSDERMA (08:39)
[2022-12-28] MEDS: polyethylene glycol 3350 Pkt 17 gm PO (10:31)
[2022-12-28] MEDS: hyDROXYzine 25 mg Capsule 50 MG PO (10:34)
[2022-12-28 14:00] VITALS: BP 101/69; PULSE 89; RESP 18; TEMP 36.7; O2SAT 99
[2022-12-28] MEDS: ibuprofen 600 mg Tablet PO (15:10)
[2022-12-28] MEDS: OLANZapine 5 mg ODT PO (15:11)
--- NOTE | 2022-12-28 17:38 | P.NPUPN_ITS ---
Subjective NPU Subjective: Patient presented today with some improvement in her hyperkinetic behavior from yesterday essentially crashing of her likely methamphetamine binge. She presented much less energy but continued to ask information to give us insight into what exactly. Other than she relapsed. She had limited comments to questions. Mental Status Exam MSE Comments: This is a slender white female in hospital scrubs with limited grooming and adequate eye contact. No abnormal movements except for extreme psychomotor retardation. Mostly uncooperative with exam in mild to moderate distress. Speech was decreased rate and volume. Mood described as as fine, affect subdued. Thought process disorganized. Thought content: Patient denies suicidal or homicidal ideation, there was paranoia reported and some paranoia noted, she appeared to be attending to internal stimuli. Attention, concentration and memory were impaired but none were formally tested. She was alert and oriented times person and place. Insight, judgment and impulse control are impaired. Vitals/I&O/Wt Last Vital Signs Temp 98.0 F 12/28/22 14:00 Pulse 89 12/28/22 14:00 Resp 18 12/28/22 14:00 BP 101/69 12/28/22 14:00 Pulse Ox 99 12/28/22 14:00 O2 Del Method 12/28/22 14:00 Weight last 48 hrs Weight 72.121 kg Data NPU 12/26/22 22:57 12/26/22 22:57 A&P Assessment and plan (1) Acute psychosis: (2) Bipolar disorder: (3) Personality disorder: (4) PTSD (post-traumatic stress disorder): (5) Methamphetamine use disorder, severe: (6) Cannabis use disorder: Plan This is a 42-year-old white female with a long history of trauma, addiction and mental health diagnoses including bipolar disorder who presents again with galileo psychotic symptoms on a 96-hour hold in part secondary to her active methamphetamine use. 1. Continue current medication. 2. Continue every 15 minute checks for safety. 3. Encourage individual, group and milieu therapy once he has engaged. 4. Encourage sobriety treatment after discharge to the hospital care to which she is willing to commit. Work on continuing previous plan for rehab. Involuntary Hold Information 96 Hour Hold: 96 Hour Involuntary Admission: Yes 96 Hour Hold Ending Date: 01/01/23 96 Hour Hold Ending Time: 23:16 Attestations NPU Medical Necessity Statement*: Inpatient hospitalization is medically necessary and be clinically appropriate vet at this time. We will monitor/initiate medic ations and make changes as indicated. Likely length of stay 7-10 days. Coding Level of Care Code Acute Code for Chg Fwd Diagnoses Acute psychosis F23 Bipolar disorder F31.9 Personality disorder F60.9 PTSD (post-traumatic stress disorder) F43.10 Methamphetamine use disorder, severe F15.20 Cannabis use disorder F12.90
[2022-12-29] MEDS: atomoxetine 40 mg Capsule 80 MG PO (09:57)
[2022-12-29] MEDS: duloxetine 60 mg Capsule PO (09:57)
[2022-12-29] MEDS: lurasidone 20 mg Tablet 40 MG PO (09:57)
[2022-12-29] MEDS: pregabalin 150 mg Capsule PO ×2 (09:57→17:37)
[2022-12-29] MEDS: fluticasone nasal spray 16gm Btl 2 SPRAY INTRANASAL (09:58)
[2022-12-29] MEDS: acetaminophen 325 mg Tablet 650 MG PO (10:01)
--- NOTE | 2022-12-29 10:16 | PC.OT ---
OT EVALUATION ATTEMPTED. PATIENT STATES, NO, NOT RIGHT NOW WHEN I ASKED IF I COULD SPEAK WITH HER. AGREEABLE TO ATTEMPT AT A LATER TIME.
[2022-12-29] MEDS: tizanidine 4 mg Tablet PO (12:57)
[2022-12-29] MEDS: hyDROXYzine 25 mg Capsule 50 MG PO (13:12)
[2022-12-29 14:00] VITALS: BP 100/65; PULSE 82; RESP 17; TEMP 36.9; O2SAT 99
--- NOTE | 2022-12-29 18:13 | P.NPUPN_ITS ---
Subjective NPU Subjective: Patient presented today very tearful and confused about what she needs to do. She continued to be ambivalent and somewhat defensive about discussion regarding recovery and her drug addiction. She continues to be frustrated about not going home but agreed that she would speak with the treatme nt team about some of the options and even think about inpatient services. Mental Status Exam MSE Comments: This is a slender white female in hospital scrubs with limited grooming and adequate eye contact. No abnormal movements except for mild psychomotor agitation. More cooperative with exam in mild to moderate distress. Speech was increased rate and volume. Mood described as as fine, affect hyperk inetic. Thought process more organized. Thought content: Patient denies suicidal or homicidal ideation, there was paranoia reported and some paranoia noted, she appeared to be attending to internal stimuli. Attention, concentration and memory were impaired but none were formally tested. She was alert and oriented times person and place. Insight, judgment and impulse control are impaired. Vitals/I&O/Wt Last Vital Signs Temp 98.4 F 12/29/22 14:00 Pulse 82 12/29/22 14:00 Resp 17 12/29/22 14:00 BP 100/65 12/29/22 14:00 Pulse Ox 99 12/29/22 14:00 O2 Del Method 12/28/22 14:00 Data NPU 12/26/22 22:57 12/26/22 22:57 A&P Assessment and plan (1) Acute psychosis: (2) Bipolar disorder: (3) Personality disorder: (4) PTSD (post-traumatic stress disorder): (5) Methamphetamine use disorder, severe: (6) Cannabis use disorder: Plan This is a 42-year-old white female with a long history of trauma, addiction and mental health diagnoses including bipolar disorder who presents again with galileo psychotic symptoms on a 96-hour hold in part secondary to her active methamphetamine use. 1. Continue current medication. 2. Continue every 15 minute checks for safety. 3. Encourage individual, group and milieu therapy once he has engaged. 4. Encourage sobriety treatment after discharge to the hospital care to which she is willing to commit. Work on continuing previous plan for inpatient rehab. Involuntary Hold Information 96 Hour Hold: 96 Hour Involuntary Admission: Yes 96 Hour Hold Ending Date: 01/01/23 96 Hour Hold Ending Time: 23:16 Attestations NPU Medical Necessity Statement*: Inpatient hospitalization is medically necessary and be clinically appropriate vet at this time. We will monitor/initiate medications and make changes as indicated. Likely length of stay 6-9 days. Coding Level of Care Code Acute Code for Chg Fwd Diagnoses Acute psychosis F23 Bipolar disorder F31.9 Personality disorder F60.9 PTSD (post-traumatic stress disorder) F43.10 Methamphetamine use disorder, severe F15.20 Cannabis use disorder F12.90
[2022-12-30 08:00] VITALS: PULSE 82; RESP 18; O2SAT 99
[2022-12-30] MEDS: atomoxetine 40 mg Capsule 80 MG PO (08:40)
[2022-12-30] MEDS: lurasidone 20 mg Tablet 40 MG PO (08:40)
[2022-12-30] MEDS: pregabalin 150 mg Capsule PO ×2 (08:40→17:12)
[2022-12-30] MEDS: duloxetine 60 mg Capsule PO (08:41)
[2022-12-30] MEDS: fluticasone nasal spray 16gm Btl 2 SPRAY INTRANASAL (08:42)
[2022-12-30] MEDS: hyDROXYzine 25 mg Capsule 50 MG PO ×2 (09:21→17:11)
[2022-12-30] MEDS: nicotine 21 mg Patch 1 PATCH TRANSDERMA (09:24)
--- NOTE | 2022-12-30 09:25 | PC.NURSE ---
[employer]N [employer] Patient began crying in the hallway and mumbling under her breath, my patch, I lost my patch. Patient hadn't received a nicotine patch since she had been admitted but thought she had and had lost it while showering. This RN reassured her that she hadn't lost a patch and that I could go grab her one for today. Patient began whimpering and thanking all of the nurses for taking care of her, then began sobbing again. A nicotine patch and vistaril 50mg PO were administered.
[2022-12-30] MEDS: tizanidine 4 mg Tablet PO ×2 (10:57→20:56)
[2022-12-30] MEDS: acetaminophen 500 mg Tablet 1000 MG PO (11:30)
[2022-12-30 14:00] VITALS: BP 110/74; PULSE 91; RESP 20; TEMP 37.1; O2SAT 97
--- NOTE | 2022-12-30 17:20 | W.PM.NPUPNS ---
Subjective NPU Subjective: Patient presented today reporting activity. She reports that she acknowledges that she has a significant addiction problem that she does not want to face. But she understands that she needs to face it. She reports that she spoke to be treatment team and that reportedly currently may have a inpatient rehab bed but it will not be available until [facility]. We agreed that the treatment team in the morning to find out the bed availability day and then we would start thinking about the possibilities of discharge and whether she would be able to sustain any sobriety leading up to her bed date. Mental Status Exam MSE Comments: This is a slender white female in hospital scrubs with limited grooming and adequate eye contact. No abnormal movements except for significant psychomotor agitation. More cooperative with exam in moderate to extreme distress. Speech was increased rate and volume. Mood described as as anxious, affect congruent and hyperkinetic. Thought process more organized. Thought content: Patient denies suicidal or homicidal ideation, there was less paranoia reported and less paranoia noted, she denied auditory or visual hallucinations and did not appear to be attending to internal stimuli. Attention and concentration were improving and memory appeared more reliable but none were formally tested. She was alert and oriented times 3. Insight appear improving judgment and impulse control is impaired. Vitals/I&O/Wt Last Vital Signs Temp 98.8 F 12/30/22 14:00 Pulse 91 12/30/22 20:00 Resp 20 H 12/30/22 20:00 BP 110/74 12/30/22 14:00 Pulse Ox 97 12/30/22 20:00 O2 Del Method 12/30/22 20:00 Data NPU 12/26/22 22:57 12/26/22 22:57 Involuntary Hold Information 96 Hour Hold: 96 Hour Involuntary Admission: Yes 96 Hour Hold Ending Date: 01/01/23 96 Hour Hold Ending Time: 23:16 Attestations NPU Medical Necessity Statement*: Inpatient hospitalization is medically necessary and be clinically appropriate vet at this time. We will monitor/initiate medications and make changes as indicated. Likely length of stay 6-9 days. Though discharge could be connected to inpatient rehab bed date. Coding Level of Care Code Acute Code for Dahiana Fwdaniel
[2022-12-30 20:00] VITALS: PULSE 91; RESP 20; O2SAT 97
[2022-12-31] MEDS: atomoxetine 40 mg Capsule 80 MG PO (09:26)
[2022-12-31] MEDS: duloxetine 60 mg Capsule PO (09:26)
[2022-12-31] MEDS: pregabalin 150 mg Capsule PO ×2 (09:26→17:05)
[2022-12-31] MEDS: lurasidone 20 mg Tablet 40 MG PO (09:26)
[2022-12-31] MEDS: fluticasone nasal spray 16gm Btl 2 SPRAY INTRANASAL (09:27)
[2022-12-31] MEDS: neomycin-poly-bacitracin oint 28 gm 1 APPLIC TOPICAL ×2 (09:27→17:05)
[2022-12-31] MEDS: tizanidine 4 mg Tablet PO (09:52)
[2022-12-31] MEDS: OLANZapine 5 mg ODT PO (09:53)
[2022-12-31] MEDS: nicotine 21 mg Patch 1 PATCH TRANSDERMA (09:57)
--- NOTE | 2022-12-31 11:19 | W.PM.NPUPNS ---
Subjective NPU Subjective: Patient presented today continuing to have significant emotional ability as she describes her situation. She endorsed a plan to follow through with her bed date January 13. We discussed the treatment team's concerns about her having success with a low between discharge and starting her inpatient programming entirely. We discussed the likelihood of initiating a 21-day hold tomorrow. She was thankful for us continuing to work with her and not giving up on her. She reports the medication seem to be working okay but was open to considering something else. Mental Status Exam MSE Comments: This is a slender white female in hospital scrubs with limited grooming and adequate eye contact. No abnormal movements except for significant psychomotor agitation. More cooperative with exam in moderate distress. Speech was increased rate and volume. Mood described as as anxious, affect congruent and hyperkinetic. Thought process more organized. Thought content: Patient denies suicidal or homicidal ideation, there was less paranoia reported and less paranoia noted, she denied auditory or visual hallucinations and did not appear to be attending to internal stimuli. Attention and concentration were improving and memory appeared more reliable but none were formally tested. She was alert and oriented times 3. Insight appear improving judgment and impulse control is impaired. Vitals/I&O/Wt Last Vital Signs Temp 98.8 F 12/30/22 14:00 Pulse 91 12/30/22 20:00 Resp 20 H 12/30/22 20:00 BP 110/74 12/30/22 14:00 Pulse Ox 97 12/30/22 20:00 O2 Del Method 12/30/22 20:00 Data NPU 12/26/22 22:57 12/26/22 22:57 A&P Assessment and plan (1) Acute psychosis: (2) Bipolar disorder: (3) Personality disorder: (4) PTSD (post-traumatic stress disorder): (5) Methamphetamine use disorder, severe: (6) Cannabis use disorder: Plan This is a 42-year-old white female with a long history of trauma, addiction and mental health diagnoses including bipolar disorder who presents again with galileo psychotic symptoms on a 96-hour hold in part secondary to her active methamphetamine use. 1. Continue current medication. Consider increasing Latuda. 2. Continue every 15 minute checks for safety. 3. Encourage individual, group and milieu therapy once he has engaged. 4. Encourage sobriety treatment after discharge to the hospital care to which she is willing to commit. Work on continuing previous plan for inpatient rehab. Involuntary Hold Information 96 Hour Hold: 96 Hour Involuntary Admission: Yes 96 Hour Hold Ending Date: 01/01/23 96 Hour Hold Ending Time: 23:16 Attestations NPU Medical Necessity Statement*: Inpatient hospitalization is medically necessary and be clinically appropriate vet at this time. We will monitor/initiate medications and make changes as indicated. Likely length of stay 6-9 days. Though discharge could be connected to inpatient rehab bed date. Coding Level of Care Code Acute Code for g Fwd Diagnoses Acute psychosis F23 Bipolar disorder F31.9 Personality disorder F60.9 PTSD (post-traumatic stress disorder) F43.10 Methamphetamine use disorder, severe F15.20 Cannabis use disorder F12.90
[2022-12-31 14:00] VITALS: BP 113/78; PULSE 89; RESP 18; TEMP 36.6; O2SAT 98
[2022-12-31] MEDS: acetaminophen 500 mg Tablet 1000 MG PO (15:43)
[2023-01-01] MEDS: atomoxetine 40 mg Capsule 80 MG PO (08:31)
[2023-01-01] MEDS: duloxetine 60 mg Capsule PO (08:32)
[2023-01-01] MEDS: fluticasone nasal spray 16gm Btl 2 SPRAY INTRANASAL (08:32)
[2023-01-01] MEDS: neomycin-poly-bacitracin oint 28 gm 1 APPLIC TOPICAL ×2 (08:32→17:20)
[2023-01-01] MEDS: lurasidone 20 mg Tablet 40 MG PO (08:32)
[2023-01-01] MEDS: pregabalin 150 mg Capsule PO ×2 (08:33→17:09)
[2023-01-01] MEDS: nicotine 21 mg Patch 1 PATCH TRANSDERMA (08:33)
[2023-01-01] MEDS: tizanidine 4 mg Tablet PO ×2 (08:53→17:09)
[2023-01-01] MEDS: hyDROXYzine 25 mg Capsule 50 MG PO ×3 (11:17→20:49)
--- NOTE | 2023-01-01 12:37 | P.NPUPN_ITS ---
Subjective NPU Subjective: Presented today reporting that she is very happy that the treatment team is working with her to find a safe pathway to her getting to her inpatient drug rehab sober. We discussed the likelihood of increasing her Latuda today and keep an eye on her other medications. She continues to struggle with anxiety and depression and at times can be quite frantic and distraught. We are working with [facility] to see if there is any possibility that a earlier bed date could be arranged but also discussed the fact that she is not currently in a cognitive state to truly benefit from the bed. We discussed applying for 21-day hold but that we might also consider signing her in if she is going to be cooperative with the plan. Mental Status Exam MSE Comments: This is a slender white female in hospital scrubs with limited grooming and adequate eye contact. No abnormal movements except for significant psychomotor agitation. More cooperative with exam in moderate distress. Speech was increased rate and volume. Mood described as thankful but very anxious, affect congruent and hyperkinetic. Thought process more organized. Thought content: Patient denies suicidal or homicidal ideation, there was less paranoia reported and less paranoia noted, she denied auditory or visual hallucinations and did not appear to be attending to internal stimuli. Attention and concentration were improving and memory appeared more reliable but none were formally tested. She was alert and oriented times 3. Insight appear improving judgment and impulse control is impaired. Vitals/I&O/Wt Last Vital Signs Temp 98 F 12/31/22 14:00 Pulse 89 12/31/22 14:00 Resp 18 12/31/22 14:00 BP 113/78 12/31/22 14:00 Pulse Ox 98 12/31/22 14:00 O2 Del Method 12/31/22 14:00 Data NPU 12/26/22 22:57 12/26/22 22:57 A&P Assessment and plan (1) Acute psychosis: (2) Bipolar disorder: (3) Personality disorder: (4) PTSD (post-traumatic stress disorder): (5) Methamphetamine use disorder, severe: (6) Cannabis use disorder: Plan This is a 42-year-old white female with a long history of trauma, addiction and mental health diagnoses including bipolar disorder who presents again with galileo psychotic symptoms on a 96-hour hold in part secondary to her active methamphetamine use. 1. Continue current medication. Increase Latuda to 60 mg p.o. daily. 2. Continue every 15 minute checks for safety. 3. Encourage individual, group and milieu therapy once he has engaged. 4. Encourage sobriety treatment after discharge to the hospital care to which she is willing to commit. Continue plan for rehab bed date 01/13/2023. Involuntary Hold Information 96 Hour Hold: 96 Hour Involuntary Admission: Yes 96 Hour Hold Ending Date: 01/01/23 96 Hour Hold Ending Time: 23:16 Attestations NPU Medical Necessity Statement*: Inpatient hospitalization is medically necessary and be clinically appropriate vet at this time. We will monitor/initiate medications and make changes as indicated. Likely length of stay 7 to 10 days. Though discharge could be connected to inpatient rehab bed date. Coding Level of Care Code Acute Code for [facility] Fwd Diagnoses Acute psychosis F23 Bipolar disorder F31.9 Personality disorder F60.9 PTSD (post-traumatic stress disorder) F43.10 Methamphetamine use disorder, severe F15.20 Cannabis use disorder F12.90
[2023-01-01 14:00] VITALS: BP 170/89; PULSE 97; RESP 18; TEMP 36.6; O2SAT 98
[2023-01-01] MEDS: acetaminophen 500 mg Tablet 1000 MG PO (17:09)
[2023-01-01] MEDS: trazodone 100 mg Tablet PO ×2 (20:22→21:18)
[2023-01-01] MEDS: nicotine 2 mg Gum BUCCAL (20:22)
[2023-01-01 21:34] VITALS: BP 115/77; PULSE 75; RESP 16; TEMP 36.6; O2SAT 96
--- NOTE | 2023-01-01 22:00 | PC.NURSE ---
Trazadone 100mg PO given for sleep and Vistaril 50mg given for anxiety at 21:18 with positive results.
[2023-01-02] MEDS: neomycin-poly-bacitracin oint 28 gm 1 APPLIC TOPICAL ×2 (09:00→18:30)
[2023-01-02] MEDS: fluticasone nasal spray 16gm Btl 2 SPRAY INTRANASAL (09:00)
[2023-01-02] MEDS: pantoprazole DR 40 mg Tablet PO (09:02)
[2023-01-02] MEDS: atomoxetine 40 mg Capsule 80 MG PO (09:02)
[2023-01-02] MEDS: duloxetine 60 mg Capsule PO (09:02)
[2023-01-02] MEDS: pregabalin 150 mg Capsule PO ×2 (09:02→18:29)
[2023-01-02] MEDS: lurasidone 20 mg Tablet 40 MG PO (09:02)
[2023-01-02] MEDS: tizanidine 4 mg Tablet PO ×2 (09:08→20:52)
[2023-01-02] MEDS: nicotine 21 mg Patch 1 PATCH TRANSDERMA (09:38)
[2023-01-02] MEDS: hyDROXYzine 25 mg Capsule 50 MG PO (10:42)
--- NOTE | 2023-01-02 10:46 | PC.NURSE ---
Patient off unit accompanied by to court.
[2023-01-02] MEDS: ibuprofen 600 mg Tablet PO (11:46)
--- NOTE | 2023-01-02 11:47 | PC.NURSE ---
Patient returned from court at this time; accompanied by .
[2023-01-02 14:00] VITALS: BP 137/88; PULSE 123; RESP 20; TEMP 37.4; O2SAT 97
--- NOTE | 2023-01-02 19:44 | W.PM.NPUPNS ---
Subjective NPU Subjective: Presented today reporting that she is very happy that the treatment team is working with her to find a safe pathway to her getting to her inpatient drug rehab sober, but tried to have the court allow her to discharge instead of staying. She is tolerating us increasing her Latuda. She continues to struggle with anxiety and depression and at times can be quite frantic and distraught. We are working with [facility] to see if there is any possibility that a earlier bed date could be arranged but also discussed the fact that she is not currently in a cognitive state to truly benefit from the bed. 21 day hold hearing today she was trying to be discharged but was placed on a hold. Mental Status Exam MSE Comments: This is a slender white female in hospital scrubs with limited grooming and adequate eye contact. No abnormal movements except for significant psychomotor agitation. More cooperative with exam in moderate distress. Speech was increased rate and volume. Mood described as very anxious, affect congruent and hyperkinetic. Thought process more organized. Thought content: Patient denies suicidal or homicidal ideation, there was less paranoia reported and less paranoia noted, she denied auditory or visual hallucinations and did not appear to be attending to internal stimuli. Attention and concentration were improving and memory appeared more reliable but none were formally tested. She was alert and oriented times 3. Insight appear improving judgment and impulse control is impaired. Vitals/I&O/Wt Last Vital Signs Temp 97.8 F 01/02/23 20:26 Pulse 85 01/02/23 20:26 Resp 18 01/02/23 20:26 BP 125/81 01/02/23 20:26 Pulse Ox 99 01/02/23 20:26 O2 Del Method 01/02/23 20:26 Data NPU 12/26/22 22:57 12/26/22 22:57 A&P Assessment and plan (1) Acute psychosis: (2) Bipolar disorder: (3) Personality disorder: (4) PTSD (post-traumatic stress disorder): (5) Methamphetamine use disorder, severe: (6) Cannabis use disorder: Plan This is a 42-year-old white female with a long history of trauma, addiction and mental health diagnoses including bipolar disorder who presents again with galileo psychotic symptoms on a 96-hour hold in part secondary to her active methamphetamine use. 1. Continue current medication. Increase Latuda to 60 mg p.o. daily. 2. Continue every 15 minute checks for safety. 3. Encourage individual, group and milieu therapy once he has engaged. 4. Encourage sobriety treatment after discharge to the hospital care to which she is willing to commit. Continue plan for rehab bed date 01/13/2023. On 21 day hold today. Involuntary Hold Information 96 Hour Hold: 96 Hour Involuntary Admission: Yes 96 Hour Hold Ending Date: 01/01/23 96 Hour Hold Ending Time: 23:16 Attestations NPU Medical Necessity Statement*: Inpatient hospitalization is medically necessary and be clinically appropriate vet at this time. We will monitor/initiate medications and make changes as indicated likely discharge directly to inpatient substance abuse treatment. Coding Level of Care Code Acute Code for [facility] Fwd Diagnoses Acute psychosis F23 Bipolar disorder F31.9 Personality disorder F60.9 PTSD (post-traumatic stress disorder) F43.10 Methamphetamine use disorder, severe F15.20 Cannabis use disorder F12.90
[2023-01-02 20:26] VITALS: BP 125/81; PULSE 85; RESP 18; TEMP 36.6; O2SAT 99
[2023-01-02] MEDS: nicotine 2 mg Gum BUCCAL (20:52)
[2023-01-02] MEDS: OLANZapine 5 mg ODT PO (20:52)
[2023-01-02] MEDS: guaiFENesin-dextromethorphan UDC 10 mL PO (21:38)
--- NOTE | 2023-01-02 21:48 | PC.NURSE ---
PRN MEDS PT GIVEN 4MG ZANAFLEX FOR MUSCLE SPASM, & 5MF ZYPEXA FOR AGITATION, WILL CONTINUE TO MONITOR.
[2023-01-03 06:00] VITALS: RESP 16
[2023-01-03] MEDS: atomoxetine 40 mg Capsule 80 MG PO (07:59)
[2023-01-03] MEDS: lurasidone 20 mg Tablet 40 MG PO (07:59)
[2023-01-03] MEDS: pregabalin 150 mg Capsule PO ×2 (07:59→18:17)
[2023-01-03] MEDS: pantoprazole DR 40 mg Tablet PO (08:00)
[2023-01-03] MEDS: duloxetine 60 mg Capsule PO (08:00)
[2023-01-03] MEDS: nicotine 4 mg lozenge MUCOUS MEM ×6 (08:18→19:49)
[2023-01-03] MEDS: ibuprofen 600 mg Tablet PO (12:38)
[2023-01-03 14:00] VITALS: BP 116/83; PULSE 84; RESP 18; TEMP 36.9; O2SAT 100
[2023-01-03] MEDS: hyDROXYzine 25 mg Capsule 50 MG PO ×2 (14:26→19:49)
[2023-01-03] MEDS: tizanidine 4 mg Tablet PO (16:32)
--- NOTE | 2023-01-03 19:29 | W.PM.NPUPNS ---
Subjective NPU Subjective: Presented today reporting that she is doing better. She is waiting for her bed date at [facility]. We discussed Dr Angeles returning tomorrow. She reports that the medications are working fine. Mental Status Exam MSE Comments: This is a slender white female in hospital scrubs with limited grooming and adequate eye contact. No abnormal movements except for psychomotor agitation. More cooperative with exam in mild distress. Speech was increased rate and volume. Mood described as a little better, affect congruent and hyperkinetic. Thought process more organized. Thought content: Patient denies suicidal or homicidal ideation, there was less paranoia reported and less paranoia noted, she denied auditory or visual hallucinations and did not appear to be attending to internal stimuli. Attention and concentration were improving and memory appeared more reliable but none were formally tested. She was alert and oriented times 3. Insight appear improving judgment and impulse control is impaired. Vitals/I&O/Wt Last Vital Signs Temp 98.3 F 01/03/23 21:00 Pulse 105 H 01/03/23 21:00 Resp 17 01/03/23 21:00 BP 129/85 01/03/23 21:00 Pulse Ox 97 01/03/23 21:00 O2 Del Method 01/03/23 21:00 Weight last 48 hrs Weight 74.106 kg Weight 74.106 kg Data NPU 12/26/22 22:57 12/26/22 22:57 A&P Assessment and plan (1) Acute psychosis: (2) Bipolar disorder: (3) Personality disorder: (4) PTSD (post-traumatic stress disorder): (5) Methamphetamine use disorder, severe: (6) Cannabis use disorder: Plan This is a 42-year-old white female with a long history of trauma, addiction and mental health diagnoses including bipolar disorder who presents again with galileo psychotic symptoms on a 96-hour hold in part secondary to her active methamphetamine use. 1. Continue current medication. Increase Latuda to 60 mg p.o. daily. 2. Continue every 15 minute checks for safety. 3. Encourage individual, group and milieu therapy once he has engaged. 4. Encourage sobriety treatment after discharge to the hospital care to which she is willing to commit. Continue plan for rehab bed date 01/13/2023. On 21 day hold 01/02/23. Involuntary Hold Information 96 Hour Hold: 96 Hour Involuntary Admission: Yes 96 Hour Hold Ending Date: 01/01/23 96 Hour Hold Ending Time: 23:16 Attestations NPU Medical Necessity Statement*: Inpatient hospitalization is medically necessary and be clinically appropriate vet at this time. We will monitor/initiate medications and make changes as indicated likely discharge directly to inpatient substance abuse treatment. Coding Level of Care Code Acute Code for [facility] Fwd Diagnoses Acute psychosis F23 Bipolar disorder F31.9 Personality disorder F60.9 PTSD (post-traumatic stress disorder) F43.10 Methamphetamine use disorder, severe F15.20 Cannabis use disorder F12.90
[2023-01-03] MEDS: trazodone 100 mg Tablet PO (19:49)
[2023-01-03] MEDS: guaiFENesin-dextromethorphan UDC 10 mL PO (20:10)
--- NOTE | 2023-01-03 20:59 | PC.NURSE ---
PT REQUEST MEDICATION FOR INSOMNIA, ANXIETY REDUCTION AND COUGH. TRAZADONE, VISTARIL AND ROBITUSSIN WAS GIVEN ORDERED. SEE MAR FOR DETAILS.
[2023-01-03 21:00] VITALS: BP 129/85; PULSE 105; RESP 17; TEMP 36.8; O2SAT 97
[2023-01-04 04:50] VITALS: BMI 25.5
[2023-01-04] MEDS: nicotine 4 mg lozenge MUCOUS MEM ×6 (07:51→20:29)
[2023-01-04] MEDS: fluticasone nasal spray 16gm Btl 2 SPRAY INTRANASAL (09:26)
[2023-01-04] MEDS: pantoprazole DR 40 mg Tablet PO (09:27)
[2023-01-04] MEDS: duloxetine 60 mg Capsule PO (09:27)
[2023-01-04] MEDS: tizanidine 4 mg Tablet PO ×2 (09:27→19:45)
[2023-01-04] MEDS: atomoxetine 40 mg Capsule 80 MG PO (09:28)
[2023-01-04] MEDS: OLANZapine 5 mg ODT PO ×2 (09:28→12:50)
[2023-01-04] MEDS: acetaminophen 500 mg Tablet 1000 MG PO (09:28)
[2023-01-04] MEDS: lurasidone 20 mg Tablet 40 MG PO (09:28)
[2023-01-04] MEDS: pregabalin 150 mg Capsule PO ×2 (09:29→17:29)
[2023-01-04] MEDS: polyethylene glycol 3350 Pkt 17 gm PO (13:50)
--- NOTE | 2023-01-04 13:57 | PC.NURSE ---
Pt came to nurses station asking for something for her bowels. Pt's abdomen is distended, soft, but tender to touch. Active bowel sounds noted throughout. Pt requesting laxative. Agreed to using generic Miralax. Pt said she thought she was lactose intolerant but ate some cottage cheese. Pt encouraged to maintain known dietary restrictions. She verbalized her understanding. Pt reports to passing gas.
[2023-01-04 14:00] VITALS: BP 119/80; PULSE 79; RESP 18; TEMP 36.4; O2SAT 97
--- NOTE | 2023-01-04 16:04 | W.PM.NPUPNS ---
Subjective NPU Subjective: Patient is a 2-year-old white female admitted with history of ADHD PTSD methamphetamine abuse and psychosis in the context of previous substance use including methamphetamine. She reported no psychotic symptoms at this time. She had reported that her Cymbalta had been helpful for her pain and her depression. She had also reported some improvement with attention and concentration with the Strattera at 80 mg daily. She was informed of the concern about the combination of Strattera and Cymbalta as they were described as being similar in quality and the patient was informed of increased risk of serotonin syndrome when using both of these together. She had reported no cravings for methamphetamine. She had expressed desire to go inpatient for continued treatment. Patient reports having no suicidal thoughts at this time. She reported no side effects from her current medication regimen. Mental Status Exam MSE Comments: This is a slender white female in hospital scrubs with limited grooming and adequate eye contact. No abnormal movements except for significant psychomotor agitation. More cooperative with exam and in no acute distress. Speech was normal in rate and volume. Mood described as good. Her affect is mood congruent. Hyperkinetic and hyperactive on interview. Thought process more organized. Thought content: Patient denies suicidal or homicidal ideation, there was less paranoia reported and less paranoia noted, she denied auditory or visual hallucinations and did not appear to be attending to internal stimuli. Attention was impaired, Concentration was poor. She was alert and oriented times 3. Insight appear improving judgment and impulse control is impaired. Vitals/I&O/Wt Last Vital Signs Temp 98.3 F 01/03/23 21:00 Pulse 105 H 01/03/23 21:00 Resp 17 01/03/23 21:00 BP 129/85 01/03/23 21:00 Pulse Ox 97 01/03/23 21:00 O2 Del Method 01/03/23 21:00 Weight last 48 hrs Weight 74.106 kg Weight 74.106 kg Data NPU 12/26/22 22:57 12/26/22 22:57 A&P Assessment and plan (1) Acute psychosis: (2) Bipolar disorder: (3) Personality disorder: (4) PTSD (post-traumatic stress disorder): (5) Methamphetamine use disorder, severe: (6) Cannabis use disorder: Plan This is a 42-year-old white female with a long history of trauma, addiction and mental health diagnoses including bipolar disorder who presents again with galileo psychotic symptoms on a 96-hour hold in part secondary to her active methamphetamine use. 1. Continue current medication. Continue Latuda to 60 mg p.o. daily, continue strattera and cymbalta as prescribed. 2. Continue every 15 minute checks for safety. 3. Encourage individual, group and milieu therapy once he has engaged. 4. Encourage sobriety treatment after discharge to the hospital care to which she is willing to commit. Continue plan for rehab bed date 01/13/2023. Involuntary Hold Information 96 Hour Hold: 96 Hour Involuntary Admission: Yes 96 Hour Hold Ending Date: 01/01/23 96 Hour Hold Ending Time: 23:16 Attestations NPU Medical Necessity Statement*: Inpatient hospitalization is medically necessary and be clinically appropriate vet at this time. We will monitor/initiate medications and make changes as indicated likely discharge directly to inpatient substance abuse treatment. Coding Level of Care Code Acute Code for [facility] Fwd Diagnoses Acute psychosis F23 Bipolar disorder F31.9 Personality disorder F60.9 PTSD (post-traumatic stress disorder) F43.10 Methamphetamine use disorder, severe F15.20 Cannabis use disorder F12.90
[2023-01-04] MEDS: ibuprofen 600 mg Tablet PO (16:51)
[2023-01-04] MEDS: neomycin-poly-bacitracin oint 28 gm 1 APPLIC TOPICAL (17:12)
[2023-01-04] MEDS: guaiFENesin-dextromethorphan UDC 10 mL PO (20:28)
[2023-01-04] MEDS: trazodone 50 mg Tablet PO (20:28)
[2023-01-04] MEDS: hyDROXYzine 25 mg Capsule 50 MG PO (20:28)
[2023-01-04 22:00] VITALS: BP 120/77; PULSE 80; RESP 18; TEMP 36.4; O2SAT 99
--- NOTE | 2023-01-04 23:24 | PC.NURSE ---
PRN medications PRN tizanidine for muscle spasms, vistaril for anxiety, and robitussin for cough all given per pt request
[2023-01-05 06:00] VITALS: BP 121/85; PULSE 92; RESP 18; TEMP 36.7; O2SAT 97
[2023-01-05] MEDS: atomoxetine 40 mg Capsule 80 MG PO (07:47)
[2023-01-05] MEDS: nicotine 4 mg lozenge MUCOUS MEM ×5 (07:47→23:45)
[2023-01-05] MEDS: pantoprazole DR 40 mg Tablet PO (07:48)
[2023-01-05] MEDS: lurasidone 20 mg Tablet 40 MG PO (07:48)
[2023-01-05] MEDS: pregabalin 150 mg Capsule PO ×2 (07:48→16:56)
[2023-01-05] MEDS: duloxetine 60 mg Capsule PO (07:49)
[2023-01-05] MEDS: tizanidine 4 mg Tablet PO ×2 (07:50→19:55)
[2023-01-05] MEDS: fluticasone nasal spray 16gm Btl 2 SPRAY INTRANASAL (07:51)
[2023-01-05] MEDS: ibuprofen 600 mg Tablet PO (12:57)
[2023-01-05 13:29] VITALS: BP 127/80; PULSE 88; RESP 17; TEMP 36.8; O2SAT 100
--- NOTE | 2023-01-05 15:02 | W.PM.NPUPNS ---
Subjective NPU Subjective: Patient is a 42-year-old white female admitted with history of ADHD PTSD methamphetamine abuse and psychosis in the context of previous substance use including methamphetamine. Patient reported no side effects from her medication. She reported motivation to attending the inpatient substance abuse treatment. She reported that she had depression and pain issues and that Cymbalta had been helpful. She had reported tremendous difficulties with maintaining sobriety in her home situation. Mental Status Exam MSE Comments: This is a slender white female in hospital scrubs with limited grooming and adequate eye contact. No abnormal movements except for significant psychomotor agitation. More cooperative with exam and in no acute distress. Speech was normal in rate and volume but somewhat productive.. Mood described as good. Her affect is mood congruent. Hyperkinetic and hyperactive on interview. Thought process more organized. Thought content: Patient denies suicidal or homicidal ideation, there was less paranoia reported and less paranoia noted, she denied auditory or visual hallucinations and did not appear to be attending to internal stimuli. Attention was impaired, Concentration was poor. She was alert and oriented times x 3. Insight appear improving judgment and impulse control is impaired. Vitals/I&O/Wt Last Vital Signs Temp 98.3 F 01/05/23 13:29 Pulse 88 01/05/23 13:29 Resp 17 01/05/23 13:29 BP 127/80 01/05/23 13:29 Pulse Ox 100 01/05/23 13:29 O2 Del Method 01/05/23 06:00 Weight last 48 hrs Weight 74.106 kg Weight 74.106 kg Data NPU 12/26/22 22:57 12/26/22 22:57 A&P Assessment and plan (1) Acute psychosis: (2) Bipolar disorder: (3) Personality disorder: (4) PTSD (post-traumatic stress disorder): (5) Methamphetamine use disorder, severe: (6) Cannabis use disorder: Plan This is a 42-year-old white female with a long history of trauma, addiction and mental health diagnoses including bipolar disorder who presents again with galileo psychotic symptoms on a 96-hour hold in part secondary to her active methamphetamine use. 1. Continue current medication. Continue Latuda to 60 mg p.o. daily, continue Cymbalta for depression and pain, but taper and discontinue Strattera (drug interaction) and begin Ritalin 10mg bid to target adhd. 2. Continue every 15 minute checks for safety. 3. Encourage individual, group and milieu therapy once he has engaged. 4. Encourage sobriety treatment after discharge to the hospital care to which she is willing to commit. Continue plan for rehab bed date 01/13/2023. Involuntary Hold Information 96 Hour Hold: 96 Hour Involuntary Admission: Yes 96 Hour Hold Ending Date: 01/01/23 96 Hour Hold Ending Time: 23:16 Attestations NPU Medical Necessity Statement*: Inpatient hospitalization is medically necessary and be clinically appropriate vet at this time. We will monitor/initiate medications and make changes as indicated likely discharge directly to inpatient substance abuse treatment. Coding Level of Care Code Acute Code for [facility] Fwd Diagnoses Acute psychosis F23 Bipolar disorder F31.9 Personality disorder F60.9 PTSD (post-traumatic stress disorder) F43.10 Methamphetamine use disorder, severe F15.20 Cannabis use disorder F12.90
[2023-01-05] MEDS: nicotine 2 mg Gum BUCCAL (15:23)
[2023-01-05] MEDS: hyDROXYzine 25 mg Capsule 50 MG PO (15:31)
--- NOTE | 2023-01-05 15:32 | PC.NURSE ---
PRN VISTARIL 50 MG GIVEN PO PER PT C/O STATED ANXIETY PT SAID I JUST NEED TO CHILL OUT A BIT
[2023-01-05] MEDS: trazodone 100 mg Tablet PO (19:50)
[2023-01-05] MEDS: guaiFENesin-dextromethorphan UDC 10 mL PO (19:51)
[2023-01-05 19:54] VITALS: BP 129/79; PULSE 92; RESP 18; TEMP 37.1; O2SAT 98
[2023-01-05] MEDS: trazodone 50 mg Tablet PO (23:45)
[2023-01-06 06:00] VITALS: BP 120/69; PULSE 79; RESP 18; TEMP 36.9; O2SAT 98
[2023-01-06] MEDS: nicotine 4 mg lozenge MUCOUS MEM ×6 (06:23→19:20)
[2023-01-06] MEDS: guaiFENesin-dextromethorphan UDC 10 mL PO ×2 (07:10→20:25)
[2023-01-06] MEDS: atomoxetine 40 mg Capsule PO (08:23)
[2023-01-06] MEDS: lurasidone 20 mg Tablet 40 MG PO (08:24)
[2023-01-06] MEDS: duloxetine 60 mg Capsule PO (08:24)
[2023-01-06] MEDS: pregabalin 150 mg Capsule PO ×2 (08:24→17:26)
[2023-01-06] MEDS: pantoprazole DR 40 mg Tablet PO (08:24)
[2023-01-06] MEDS: fluticasone nasal spray 16gm Btl 2 SPRAY INTRANASAL (08:26)
[2023-01-06] MEDS: tizanidine 4 mg Tablet PO ×2 (08:26→20:24)
[2023-01-06] MEDS: polyethylene glycol 3350 Pkt 17 gm PO (10:04)
[2023-01-06] MEDS: methylphenidate 10 mg Tablet PO (13:06)
[2023-01-06 14:00] VITALS: BP 126/79; PULSE 94; RESP 18; TEMP 36.8; O2SAT 96
--- NOTE | 2023-01-06 14:29 | W.PM.NPUPNS ---
Subjective NPU Subjective: Patient is a 42-year-old white female admitted with history of ADHD PTSD methamphetamine abuse and psychosis in the context of previous substance use including methamphetamine. Patient reported no cravings for methamphetamine. She reported continued depression but states it has been better on Cymbalta. She reported no feelings of hopelessness or worthlessness. She had been able to attend groups. She reported good energy but reported chronic problems with attention concentration and frequent distractibility. The patient remained agreeable with inpatient substance abuse treatment at [facility]. Patient reported no side effects from her medication. She reported motivation to attending the inpatient substance abuse treatment. She reported that she had depression and pain issues and that Cymbalta had been helpful. She had reported tremendous difficulties with maintaining sobriety in her home situation. Mental Status Exam MSE Comments: This is a slender white female in hospital scrubs with limited grooming and adequate eye contact. No abnormal movements except for significant psychomotor agitation. More cooperative with exam and in no acute distress. Speech was normal in rate, rhythm and volume Mood described as good. Her affect is mood congruent. Hyperkinetic and hyperactive on interview. Thought process more organized. Thought content: Patient denies suicidal or homicidal ideation, there was less paranoia reported and less paranoia noted, she denied auditory or visual hallucinations and did not appear to be attending to internal stimuli. Attention was impaired, Concentration was poor. She was alert and oriented times x 3. Insight appear improving judgment and impulse control is impaired. Vitals/I&O/Wt Last Vital Signs Temp 98.4 F 01/06/23 06:00 Pulse 79 01/06/23 06:00 Resp 18 01/06/23 06:00 BP 120/69 01/06/23 06:00 Pulse Ox 98 01/06/23 06:00 O2 Del Method 01/05/23 06:00 01/05/23 01/06/23 01/06/23 22:59 06:59 14:59 Intake Total 600 / 600 Balance 600 / 600 Data NPU 12/26/22 22:57 12/26/22 22:57 A&P Assessment and plan (1) Acute psychosis: (2) Bipolar disorder: (3) Personality disorder: (4) PTSD (post-traumatic stress disorder): (5) Methamphetamine use disorder, severe: (6) Cannabis use disorder: Plan This is a 42-year-old white female with a long history of trauma, addiction and mental health diagnoses including bipolar disorder who presents again with galileo psychotic symptoms on a 96-hour hold in part secondary to her active methamphetamine use. 1. Continue current medication. Continue Latuda to 60 mg p.o. daily, continue Cymbalta for depression and pain, decrease strattera to 20mg with plan for discontinuation and continue Ritalin 10mg bid to target adhd. 2. Continue every 15 minute checks for safety. 3. Encourage individual, group and milieu therapy once he has engaged. 4. Encourage sobriety treatment after discharge to the hospital care to which she is willing to commit. Continue plan for rehab bed date 01/13/2023. Involuntary Hold Information 96 Hour Hold: 96 Hour Involuntary Admission: Yes 96 Hour Hold Ending Date: 01/01/23 96 Hour Hold Ending Time: 23:16 Attestations U Medical Necessity Statement*: Inpatient hospitalization is medically necessary and be clinically appropriate at this time. We will monitor/initiate medications and make changes as indicated likely discharge directly to inpatient substance abuse treatment. The likely length of stay remainse 7 days. Coding Level of Care Code Acute Code for [facility] Fwd Diagnoses Acute psychosis F23 Bipolar disorder F31.9 Personality disorder F60.9 PTSD (post-traumatic stress disorder) F43.10 Methamphetamine use disorder, severe F15.20 Cannabis use disorder F12.90
[2023-01-06] MEDS: ibuprofen 600 mg Tablet PO (15:33)
[2023-01-06] MEDS: trazodone 100 mg Tablet PO (20:25)
[2023-01-06 22:00] VITALS: BP 135/79; PULSE 84; RESP 22; TEMP 36.8; O2SAT 99
[2023-01-07 06:00] VITALS: BP 107/55; PULSE 92; RESP 20; TEMP 36.7; O2SAT 95
[2023-01-07] MEDS: ibuprofen 600 mg Tablet PO ×2 (06:17→16:53)
[2023-01-07] MEDS: nicotine 4 mg lozenge MUCOUS MEM ×6 (06:17→17:58)
[2023-01-07] MEDS: pantoprazole DR 40 mg Tablet PO (08:48)
[2023-01-07] MEDS: atomoxetine 40 mg Capsule PO (08:48)
[2023-01-07] MEDS: duloxetine 60 mg Capsule PO (08:48)
[2023-01-07] MEDS: methylphenidate 10 mg Tablet PO ×2 (08:48→13:08)
[2023-01-07] MEDS: pregabalin 150 mg Capsule PO ×2 (08:48→17:58)
[2023-01-07] MEDS: fluticasone nasal spray 16gm Btl 2 SPRAY INTRANASAL (08:48)
[2023-01-07] MEDS: lurasidone 20 mg Tablet 40 MG PO (08:50)
[2023-01-07] MEDS: tizanidine 4 mg Tablet PO ×2 (09:08→19:37)
[2023-01-07 14:00] VITALS: BP 137/84; PULSE 78; RESP 18; TEMP 36.8; O2SAT 96
--- NOTE | 2023-01-07 15:30 | P.NPUPN_ITS ---
Subjective NPU Subjective: Patient is a 42-year-old white female admitted with history of ADHD PTSD methamphetamine abuse and psychosis in the context of previous substance use including methamphetamine. The patient had reported improved mood and no worsening ability to stay on task with the addition of methylphenidate. She reported no side effects at this time. She reported improved motivation to remain off of methamphetamine. She reports being motivated to attend inpatient treatment at the [facility]. She had reported that in on a stable home situation would make it difficult for her to return home without using. She reported no complaints of auditory hallucinations today. She reported no sleep continuity disruption today. Mental Status Exam MSE Comments: This is a slender white female in hospital scrubs with limited grooming and adequate eye contact. No abnormal movements except for significant psychomotor agitation. More cooperative with exam and in no acute distress. Speech was normal in rate, rhythm and volume Mood described as good. Her affect is mood congruent. Hyperkinetic and hyperactive on interview. Thought process more organized. Thought content: Patient denies suicidal or homicidal ideation, there was no overt paranoia noted. She denied auditory or visual hallucinations and did not appear to be responding to internal stimuli. Attention was impaired, Concentration was poor. She was alert and oriented times x 3. Insight appear improving. Judgment and impulse control remain impaired. Vitals/I&O/Wt Last Vital Signs Temp 98.1 F 01/07/23 06:00 Pulse 92 01/07/23 06:00 Resp 20 H 01/07/23 06:00 BP 107/55 01/07/23 06:00 Pulse Ox 95 01/07/23 06:00 O2 Del Method 01/07/23 06:00 Data NPU 12/26/22 22:57 12/26/22 22:57 A&P Assessment and plan (1) Acute psychosis: (2) Bipolar disorder: (3) Personality disorder: (4) PTSD (post-traumatic stress disorder): (5) Methamphetamine use disorder, severe: (6) Cannabis use disorder: Plan This is a 42-year-old white female with a long history of trauma, addiction and mental health diagnoses including bipolar disorder who presents again with galileo psychotic symptoms on a 96-hour hold in part secondary to her active methamphetamine use. 1. Continue current medication. Continue Latuda to 60 mg p.o. daily, continue Cymbalta for depression and pain, continue strattera to 20mg with plan for discontinuation and continue Ritalin 10mg bid to target adhd. 2. Continue every 15 minute checks for safety. 3. Encourage individual, group and milieu therapy once he has engaged. 4. Encourage sobriety treatment after discharge to the hospital care to which she is willing to commit. Continue plan for rehab bed date 01/13/2023. Involuntary Hold Information 96 Hour Hold: 96 Hour Involuntary Admission: Yes 96 Hour Hold Ending Date: 01/01/23 96 Hour Hold Ending Time: 23:16 Attestations NPU Medical Necessity Statement*: Inpatient hospitalization is medically necessary and be clinically appropriate at this time. We will monitor/initiate medications and make changes as indicated likely discharge directly to inpatient substance abuse treatment. The likely length of stay remains 7 days. Coding Level of Care Code Acute Code for [facility] Fwd Diagnoses Acute psychosis F23 Bipolar disorder F31.9 Personality disorder F60.9 PTSD (post-traumatic stress disorder) F43.10 Methamphetamine use disorder, severe F15.20 Cannabis use disorder F12.90
[2023-01-07] MEDS: ciprofloxacin-dexameth Otic Susp 7.5 mL Btl 4 DROP EAR-RIGHT (17:58)
[2023-01-07 20:42] VITALS: BP 125/83; PULSE 82; RESP 18; TEMP 36.7; O2SAT 98
[2023-01-07] MEDS: trazodone 100 mg Tablet PO (20:52)
[2023-01-07] MEDS: guaiFENesin-dextromethorphan UDC 10 mL PO (20:53)
[2023-01-07] MEDS: hyDROXYzine 25 mg Capsule 50 MG PO (20:53)
[2023-01-08 06:00] VITALS: BP 134/82; PULSE 72; RESP 17; TEMP 37; O2SAT 95
[2023-01-08] MEDS: ibuprofen 600 mg Tablet PO ×2 (06:15→15:41)
[2023-01-08] MEDS: nicotine 4 mg lozenge MUCOUS MEM ×7 (06:38→19:39)
[2023-01-08] MEDS: duloxetine 60 mg Capsule PO (08:39)
[2023-01-08] MEDS: pantoprazole DR 40 mg Tablet PO (08:39)
[2023-01-08] MEDS: pregabalin 150 mg Capsule PO ×2 (08:39→18:04)
[2023-01-08] MEDS: guaiFENesin-dextromethorphan UDC 10 mL PO (08:39)
[2023-01-08] MEDS: methylphenidate 10 mg Tablet PO ×2 (08:39→13:01)
[2023-01-08] MEDS: lurasidone 20 mg Tablet 40 MG PO (08:39)
[2023-01-08] MEDS: tizanidine 4 mg Tablet PO ×2 (08:39→21:35)
[2023-01-08] MEDS: albuterol 2.5 mg/3 mL Neb NEBULIZER (08:45)
[2023-01-08 08:46] VITALS: PULSE 90; RESP 16; O2SAT 98
[2023-01-08] MEDS: fluticasone nasal spray 16gm Btl 2 SPRAY INTRANASAL (10:06)
[2023-01-08] MEDS: neomycin-poly-bacitracin oint 28 gm 1 APPLIC TOPICAL ×2 (10:07→18:04)
[2023-01-08] MEDS: ciprofloxacin-dexameth Otic Susp 7.5 mL Btl 4 DROP EAR-RIGHT ×2 (10:07→18:04)
[2023-01-08 14:00] VITALS: BP 123/83; PULSE 94; RESP 18; TEMP 36.6; O2SAT 100
--- NOTE | 2023-01-08 15:51 | W.PM.NPUPNS ---
Subjective NPU Subjective: Patient is a 42-year-old white female admitted with history of ADHD PTSD methamphetamine abuse and psychosis in the context of previous substance use including methamphetamine. Patient had reported improved focus on her medication. She reported no cravings for methamphetamine. She had been able to attend groups. She denied any hallucinations at this time. She had reported motivation to attend inpatient rehabilitation and reports that she continues to have problems with managing her anxiety. Mental Status Exam MSE Comments: This is a slender white female in hospital scrubs with limited grooming and adequate eye contact. No abnormal movements except for significant psychomotor agitation. More cooperative with exam and in no acute distress. Speech was normal in rate, rhythm and volume Mood described as good. Her affect is mood congruent. Hyperkinetic and hyperactive on interview. Thought process more organized and linear. Thought content: Patient denies suicidal or homicidal ideation, there was no overt paranoia noted. She denied auditory or visual hallucinations and did not appear to be responding to internal stimuli. Attention was impaired, Concentration was poor. She was alert and oriented times x 3. Insight appear improving. Judgment and impulse control remain poor. Vitals/I&O/Wt Last Vital Signs Temp 98 F 01/08/23 14:00 Pulse 94 01/08/23 14:00 Resp 18 01/08/23 14:00 BP 123/83 01/08/23 14:00 Pulse Ox 100 01/08/23 14:00 O2 Del Method 01/08/23 14:00 Data NPU 12/26/22 22:57 12/26/22 22:57 A&P Assessment and plan (1) Acute psychosis: (2) Bipolar disorder: (3) Personality disorder: (4) PTSD (post-traumatic stress disorder): (5) Methamphetamine use disorder, severe: (6) Cannabis use disorder: Plan This is a 42-year-old white female with a long history of trauma, addiction and mental health diagnoses including bipolar disorder who presents again with galileo psychotic symptoms on a 96-hour hold in part secondary to her active methamphetamine use. 1. Continue current medication. Continue Latuda to 60 mg p.o. daily, Increase Cymbalta to 90mg daily for depression and pain, discontinued strattera, increase Ritalin to 10tid. 2. Continue every 15 minute checks for safety. 3. Encourage individual, group and milieu therapy once he has engaged. 4. Encourage sobriety treatment after discharge to the hospital care to which she is willing to commit. Continue plan for rehab bed date 01/13/2023. Involuntary Hold Information 96 Hour Hold: 96 Hour Involuntary Admission: Yes 96 Hour Hold Ending Date: 01/01/23 96 Hour Hold Ending Time: 23:16 Attestations NPU Medical Necessity Statement*: Inpatient hospitalization is medically necessary and be clinically appropriate at this time. We will monitor/initiate medications and make changes as indicated likely discharge directly to inpatient substance abuse treatment. The likely length of stay remains 7 days. Coding Level of Care Code Acute Code for [facility] Fwd Diagnoses Acute psychosis F23 Bipolar disorder F31.9 Personality disorder F60.9 PTSD (post-traumatic stress disorder) F43.10 Methamphetamine use disorder, severe F15.20 Cannabis use disorder F12.90
[2023-01-08] MEDS: hyDROXYzine 25 mg Capsule 50 MG PO ×2 (16:23→22:09)
[2023-01-08 20:31] VITALS: BP 170/83; PULSE 84; RESP 17; TEMP 36.9; O2SAT 95
[2023-01-08] MEDS: trazodone 100 mg Tablet PO (21:36)
[2023-01-09 06:00] VITALS: BP 142/88; PULSE 80; RESP 18; TEMP 36.5; O2SAT 95
[2023-01-09] MEDS: nicotine 4 mg lozenge MUCOUS MEM ×7 (06:34→21:51)
[2023-01-09] MEDS: ibuprofen 600 mg Tablet PO (06:34)
[2023-01-09] MEDS: duloxetine 30 mg Capsule 90 MG PO (09:24)
[2023-01-09] MEDS: pantoprazole DR 40 mg Tablet PO (09:25)
[2023-01-09] MEDS: pregabalin 150 mg Capsule PO ×2 (09:25→18:11)
[2023-01-09] MEDS: lurasidone 20 mg Tablet 40 MG PO (09:25)
[2023-01-09] MEDS: ciprofloxacin-dexameth Otic Susp 7.5 mL Btl 4 DROP EAR-RIGHT ×2 (09:26→18:21)
[2023-01-09] MEDS: fluticasone nasal spray 16gm Btl 2 SPRAY INTRANASAL (09:27)
[2023-01-09] MEDS: methylphenidate 10 mg Tablet PO ×3 (09:56→18:11)
[2023-01-09 14:00] VITALS: BP 122/81; PULSE 83; RESP 20; TEMP 37; O2SAT 98
--- NOTE | 2023-01-09 15:30 | P.NPUPN_ITS ---
Subjective NPU Subjective: Patient is a 42-year-old white female admitted with history of ADHD PTSD methamphetamine abuse and psychosis in the context of previous substance use including methamphetamine. She denied any psychotic symptoms at this time. She reported no cravings for methamphetamine. She had acknowledged that there have been some triggers to her use but stated that in the past she had been able to abstain from crystal meth use for several years. She had reported frequent awakenings at night despite trazodone being helpful initially with helping her fall asleep. She reported no side effects from her Ritalin and stated that she felt that she was focusing better and less distracted when taking this medication routinely. She denied any paranoia and denied any excessive worry at this time. She had continued to endorse some anxiety but states that it had been less over the past 3 days. Mental Status Exam MSE Comments: This is a slender white female in hospital scrubs with limited grooming and adequate eye contact. No abnormal movements except for significant psychomotor agitation. More cooperative with exam and in no acute distress. Speech was normal in rate, rhythm and volume Mood described as good. Her affect is mood congruent. Hyperkinetic but less hyperactive on interview. Thought process more organized and linear. Thought content: Patient denies suicidal or homicidal ideation, there was no overt paranoia noted. She denied auditory or visual hallucinations and did not appear to be responding to internal stimuli. Attention was improving, Concentration was also better. She was alert and oriented times x 3. Insight appear improving. Judgment and impulse control remain poor. Vitals/I&O/Wt Last Vital Signs Temp 97.7 F 01/09/23 06:00 Pulse 80 01/09/23 06:00 Resp 18 01/09/23 06:00 BP 142/88 01/09/23 06:00 Pulse Ox 95 01/09/23 06:00 O2 Del Method 01/09/23 06:00 Data NPU 12/26/22 22:57 12/26/22 22:57 A&P Assessment and plan (1) Acute psychosis: (2) Bipolar disorder: (3) Personality disorder: (4) PTSD (post-traumatic stress disorder): (5) Methamphetamine use disorder, severe: (6) Cannabis use disorder: Plan This is a 42-year-old white female with a long history of trauma, addiction and mental health diagnoses including bipolar disorder who presents again with galileo psychotic symptoms on a 96-hour hold in part secondary to her active methamphetamine use. 1. Continue current medication. Continue Latuda to 60 mg p.o. daily, Continue Cymbalta to 90mg daily for depression and pain, ontinue Ritalin to 10tid, increase trazodone 150mg at night. 2. Continue every 15 minute checks for safety. 3. Encourage individual, group and milieu therapy once he has engaged. 4. Encourage sobriety treatment after discharge to the hospital care to which she is willing to commit. Continue plan for rehab bed date 01/13/2023. Involuntary Hold Information 96 Hour Hold: 96 Hour Involuntary Admission: Yes 96 Hour Hold Ending Date: 01/01/23 96 Hour Hold Ending Time: 23:16 Attestations NPU Medical Necessity Statement*: Inpatient hospitalization is medically necessary and be clinically appropriate at this time. We will monitor/initiate medicat ions and make changes as indicated likely discharge directly to inpatient substance abuse treatment. The likely length of stay remains 7 days. Coding Level of Care Code Acute Code for [facility] Diagnoses Acute psychosis F23 Bipolar disorder F31.9 Personality disorder F60.9 PTSD (post-traumatic stress disorder) F43.10 Methamphetamine use disorder, severe F15.20 Cannabis use disorder F12.90
[2023-01-09] MEDS: hyDROXYzine 25 mg Capsule 50 MG PO (16:19)
[2023-01-09 21:23] VITALS: BP 129/84; PULSE 76; RESP 16; TEMP 36.9; O2SAT 97
[2023-01-09] MEDS: trazodone 100 mg Tablet 150 MG PO (21:50)
[2023-01-09] MEDS: tizanidine 4 mg Tablet PO (21:50)
[2023-01-10 06:00] VITALS: BP 121/81; PULSE 86; RESP 16; TEMP 36.7; O2SAT 97
[2023-01-10] MEDS: nicotine 4 mg lozenge MUCOUS MEM ×7 (06:37→19:52)
[2023-01-10] MEDS: lurasidone 20 mg Tablet 40 MG PO (08:31)
[2023-01-10] MEDS: ibuprofen 600 mg Tablet PO ×2 (08:31→15:21)
[2023-01-10] MEDS: duloxetine 30 mg Capsule 90 MG PO (08:31)
[2023-01-10] MEDS: fluticasone nasal spray 16gm Btl 2 SPRAY INTRANASAL (08:33)
[2023-01-10] MEDS: pantoprazole DR 40 mg Tablet PO (08:33)
[2023-01-10] MEDS: ciprofloxacin-dexameth Otic Susp 7.5 mL Btl 4 DROP EAR-RIGHT ×2 (08:33→18:19)
[2023-01-10] MEDS: tizanidine 4 mg Tablet PO ×2 (08:35→21:45)
[2023-01-10] MEDS: neomycin-poly-bacitracin oint 28 gm 1 APPLIC TOPICAL (09:11)
[2023-01-10] MEDS: methylphenidate 10 mg Tablet PO ×3 (10:32→18:18)
[2023-01-10] MEDS: hyDROXYzine 25 mg Capsule 50 MG PO ×2 (12:15→21:45)
--- NOTE | 2023-01-10 13:44 | W.PM.NPUPNS ---
Subjective NPU Subjective: Patient is a 42-year-old white female admitted with history of ADHD, PTSD,methamphetamine abuse and psychosis in the context of previous substance use including methamphetamine. She denied any psychotic symptoms at this time. She reported improved mood and concentration. She reported improved energy. She stated that she had been sleeping better with the increase in trazodone. She had continued to report motivation with going to her inpatient rehabilitation facility directly from the hospital. The patient had appeared to understand the significant nature of her substance use had led to the patient being hospitalized several times with psychosis and reported that she needed to have further support and possible supervision even when returning home from the inpatient rehabilitation facility. She reported no cravings for methamphetamine. She had reported some reduction in anxiety over the last 2 days. She reported no side effects from the medication. Mental Status Exam MSE Comments: This is a slender white female in hospital scrubs with limited grooming and adequate eye contact. No abnormal movements except for significant psychomotor agitation. More cooperative with exam and in no acute distress. Speech was normal in rate, rhythm and volume. Mood described as great . Her affect is brighter. She remains Hyperkinetic but less hyperactive on interview. Thought process more organized and linear. Thought content: Patient denies suicidal or homicidal ideation, there was no overt paranoia noted. She denied auditory or visual hallucinations and did not appear to be responding to internal stimuli. Attention span appeared improved. Concentration was adequate. She was alert and oriented times x 3. Insight appear improving. Judgment was guarded and impulse control remain poor. Vitals/I&O/Wt Last Vital Signs Temp 98.1 F 01/10/23 06:00 Pulse 86 01/10/23 06:00 Resp 16 01/10/23 06:00 BP 121/81 01/10/23 06:00 Pulse Ox 97 01/10/23 06:00 O2 Del Method 01/10/23 06:00 01/09/23 01/10/23 01/10/23 22:59 06:59 14:59 Intake Total 600 / 600 Balance 600 / 600 Data NPU 12/26/22 22:57 12/26/22 22:57 A&P Assessment and plan (1) Acute psychosis: (2) Bipolar disorder: (3) Personality disorder: (4) PTSD (post-traumatic stress disorder): (5) Methamphetamine use disorder, severe: (6) Cannabis use disorder: Plan This is a 42-year-old white female with a long history of trauma, addiction and mental health diagnoses including bipolar disorder who presents again with galileo psychotic symptoms on a 96-hour hold in part secondary to her active methamphetamine use. 1. Continue current medication. Continue Latuda to 60 mg p.o. daily, Continue Cymbalta to 90mg daily for depression and pain, continue Ritalin to 10tid, continue trazodone at 150mg at night. 2. Continue every 15 minute checks for safety. 3. Encourage individual, group and milieu therapy once he has engaged. 4. Encourage sobriety treatment after discharge to the hospital care to which she is willing to commit. Continue plan for rehab bed date 01/13/2023. Involuntary Hold Information 96 Hour Hold: 96 Hour Involuntary Admission: Yes 96 Hour Hold Ending Date: 01/01/23 96 Hour Hold Ending Time: 23:16 Attestations NPU Medical Necessity Statement*: Inpatient hospitalization is medically necessary and be clinically appropriate at this time. We will monitor/initiate medications and make changes as indicated likely discharge directly to inpatient substance abuse treatment. The likely length of stay remains 3 days. Coding Level of Care Code Acute Code for [facility] Fwd Diagnoses Acute psychosis F23 Bipolar disorder F31.9 Personality disorder F60.9 PTSD (post-traumatic stress disorder) F43.10 Methamphetamine use disorder, severe F15.20 Cannabis use disorder F12.90
[2023-01-10] MEDS: acetaminophen 500 mg Tablet 1000 MG PO ×2 (13:49→19:52)
[2023-01-10] MEDS: polyethylene glycol 3350 Pkt 17 gm PO (13:59)
[2023-01-10 14:00] VITALS: BP 117/81; PULSE 81; RESP 18; TEMP 36.6; O2SAT 99
[2023-01-10] MEDS: blistex lip oint 7 gm Tube 1 APPLIC TOPICAL (19:53)
[2023-01-10 20:58] VITALS: BP 135/86; PULSE 87; RESP 18; TEMP 36.8; O2SAT 98
[2023-01-10] MEDS: trazodone 100 mg Tablet 150 MG PO (21:45)
[2023-01-11 06:00] VITALS: BP 110/77; PULSE 81; RESP 16; TEMP 36.7; O2SAT 96
[2023-01-11] MEDS: ibuprofen 600 mg Tablet PO ×2 (08:34→18:36)
[2023-01-11] MEDS: lurasidone 20 mg Tablet 40 MG PO (09:13)
[2023-01-11] MEDS: pantoprazole DR 40 mg Tablet PO (09:14)
[2023-01-11] MEDS: duloxetine 30 mg Capsule 90 MG PO (09:14)
[2023-01-11] MEDS: fluticasone nasal spray 16gm Btl 2 SPRAY INTRANASAL (09:14)
[2023-01-11] MEDS: nicotine 4 mg lozenge MUCOUS MEM ×6 (09:14→21:01)
[2023-01-11] MEDS: ciprofloxacin-dexameth Otic Susp 7.5 mL Btl 4 DROP EAR-RIGHT ×2 (09:14→18:30)
[2023-01-11] MEDS: tizanidine 4 mg Tablet PO ×2 (09:16→21:02)
[2023-01-11] MEDS: methylphenidate 10 mg Tablet PO ×3 (10:04→16:22)
[2023-01-11] MEDS: blistex lip oint 7 gm Tube 1 APPLIC TOPICAL ×3 (10:57→18:34)
[2023-01-11] MEDS: pregabalin 150 mg Capsule PO ×2 (11:09→18:30)
[2023-01-11 14:00] VITALS: BP 118/74; PULSE 88; RESP 18; TEMP 36.7; O2SAT 98
[2023-01-11] MEDS: acetaminophen 500 mg Tablet 1000 MG PO ×2 (14:12→21:02)
--- NOTE | 2023-01-11 14:44 | P.NPUPN_ITS ---
Subjective NPU Subjective: Patient is a 42-year-old white female admitted with history of ADHD, PTSD,methamphetamine abuse and psychosis in the context of previous substance use including methamphetamine. She denied any psychotic symptoms at this time. She reports no cravings for methamphetamine. She reported improved concentration. She had been social on the milieu with no side effects from her medication reported. She had reported feeling optimistic about being placed in inpatient rehabilitation facility. She was redirectable and reported improved appetite and minimized any hallucinations at this time. She had reported no paranoia at this time as well. Mental Status Exam MSE Comments: This is a slender white female in hospital scrubs with limited grooming and adequate eye contact. No abnormal movements except for significant psychomotor agitation. She wascooperative with exam and in no acute distress. Speech was normal in rate, rhythm and volume. Mood described as good . Her affect is brighter. She remains Hyperkinetic but less hyperactive on interview. Thought process more organized and linear. Thought content: Patient denies suicidal or homicidal ideation, there was no overt paranoia noted. She denied auditory or visual hallucinations and did not appear to be responding to internal stimuli. Attention span appeared improved. Concentration was adequate. She was alert and oriented times x 3. Insight appear improving. Judgment was guarded and impulse control remain poor. Vitals/I&O/Wt Last Vital Signs Temp 98.1 F 01/11/23 06:00 Pulse 81 01/11/23 06:00 Resp 16 01/11/23 06:00 BP 110/77 01/11/23 06:00 Pulse Ox 96 01/11/23 06:00 O2 Del Method 01/10/23 14:00 01/10/23 01/11/23 01/11/23 22:59 06:59 14:59 Intake Total 600 / 600 Balance 600 / 600 Weight last 48 hrs Weight 76.022 kg Data NPU 12/26/22 22:57 12/26/22 22:57 A&P Assessment and plan (1) Acute psychosis: (2) Bipolar disorder: (3) Personality disorder: (4) PTSD (post-traumatic stress disorder): (5) Methamphetamine use disorder, severe: (6) Cannabis use disorder: Plan This is a 42-year-old white female with a long history of trauma, addiction and mental health diagnoses including bipolar disorder who presents again with galileo psychotic symptoms on a 96-hour hold in part secondary to her active methamphetamine use. 1. Continue current medication. Continue Latuda to 60 mg p.o. daily, Continue Cymbalta to 90mg daily for depression and pain, continue Ritalin to 10mg tid, continue trazodone at 150mg at night. 2. Continue every 15 minute checks for safety. 3. Encourage individual, group and milieu therapy once he has engaged. 4. Encourage sobriety treatment after discharge to the hospital care to which she is willing to commit. Continue plan for rehab bed date 01/13/2023. Involuntary Hold Information 96 Hour Hold: 96 Hour Involuntary Admission: Yes 96 Hour Hold Ending Date: 01/01/23 96 Hour Hold Ending Time: 23:16 Attestations NPU Medical Necessity Statement*: Inpatient hospitalization is medically necessary and be clinically appropriate at this time. We will monitor/initiate medications and make changes as indicated likely discharge directly to inpatient substance abuse treatment. The likely length of stay remains 3 days. Coding Level of Care Code Acute Code for [facility] Diagnoses Acute psychosis F23 Bipolar disorder F31.9 Personality disorder F60.9 PTSD (post-traumatic stress disorder) F43.10 Methamphetamine use disorder, severe F15.20 Cannabis use disorder F12.90
[2023-01-11] MEDS: trazodone 100 mg Tablet 150 MG PO (21:02)
[2023-01-11 21:50] VITALS: BP 116/70; PULSE 88; RESP 18; TEMP 37.2; O2SAT 95
[2023-01-12 06:00] VITALS: BP 110/74; PULSE 87; RESP 16; TEMP 36.9; O2SAT 97
[2023-01-12] MEDS: nicotine 4 mg lozenge MUCOUS MEM ×5 (06:14→15:07)
[2023-01-12] MEDS: pregabalin 150 mg Capsule PO ×2 (07:49→17:42)
[2023-01-12] MEDS: duloxetine 30 mg Capsule 90 MG PO (07:49)
[2023-01-12] MEDS: pantoprazole DR 40 mg Tablet PO (07:49)
[2023-01-12] MEDS: ibuprofen 600 mg Tablet PO (07:49)
[2023-01-12] MEDS: methylphenidate 10 mg Tablet PO ×3 (07:49→16:07)
[2023-01-12] MEDS: lurasidone 20 mg Tablet 40 MG PO (07:50)
[2023-01-12] MEDS: fluticasone nasal spray 16gm Btl 2 SPRAY INTRANASAL (07:51)
[2023-01-12] MEDS: ciprofloxacin-dexameth Otic Susp 7.5 mL Btl 4 DROP EAR-RIGHT ×2 (07:52→17:43)
[2023-01-12 14:00] VITALS: BP 116/68; PULSE 84; RESP 18; TEMP 36.9; O2SAT 98
[2023-01-12] MEDS: acetaminophen 500 mg Tablet 1000 MG PO (14:07)
--- NOTE | 2023-01-12 18:00 | P.NPUPN_ITS ---
Subjective NPU Subjective: Patient is a 42-year-old white female admitted with history of ADHD, PTSD,methamphetamine abuse and psychosis in the context of previous substance use including methamphetamine. She denied any psychotic symptoms at this time. She had reported improved ability to stay on task and focus with i mproved concentration with the Ritalin. She reported no cravings for methamphetamine at this time. She reports that she is ready to begin inpatient treatment tomorrow at the [facility]. She denied any feelings of hopelessness or worthlessness. She minimized having any depression. Mental Status Exam MSE Comments: This is a slender white female in hospital scrubs with limited grooming and adequate eye contact. No abnormal movements except for significant psychomotor agitation. She was cooperative with exam and in no acute distress. Speech was normal in rate, rhythm and volume. Mood described as great. Her affect is brighter. She remains Hyperkinetic but less hyperactive on interview. Thought process more organized and linear. Thought content: Patient denies suicidal or homicidal ideation, there was no overt paranoia noted. She denied auditory or visual hallucinations and did not appear to be responding to internal stimuli. Attention span appeared improved. Concentration was adequate. She was alert and oriented times x 3. Insight appear improving. Judgment was guarded and impulse control was showing improvement. Vitals/I&O/Wt Last Vital Signs Temp 98.4 F 01/12/23 14:00 Pulse 84 01/12/23 14:00 Resp 18 01/12/23 14:00 BP 116/68 01/12/23 14:00 Pulse Ox 98 01/12/23 14:00 O2 Del Method 01/12/23 14:00 Weight last 48 hrs Weight 76.022 kg Data NPU 12/26/22 22:57 12/26/22 22:57 A&P Assessment and plan (1) Acute psychosis: (2) Bipolar disorder: (3) Personality disorder: (4) PTSD (post-traumatic stress disorder): (5) Methamphetamine use disorder, severe: (6) Cannabis use disorder: Plan This is a 42-year-old white female with a long history of trauma, addiction and mental health diagnoses including bipolar disorder who presents again with galileo psychotic symptoms on a 96-hour hold in part secondary to her active methamphetamine use. 1. Continue current medication. Continue Latuda at 40 mg p.o. daily, Continue Cymbalta to 90mg daily for depression and pain, continue Ritalin to 10mg tid, continue trazodone at 150mg at night. 2. Continue every 15 minute checks for safety. 3. Encourage individual, group and milieu therapy once he has engaged. 4. Encourage sobriety treatment after discharge to the hospital care to which she is willing to commit. Continue plan for rehab bed date 01/13/2023. Involuntary Hold Information 96 Hour Hold: 96 Hour Involuntary Admission: Yes 96 Hour Hold Ending Date: 01/01/23 96 Hour Hold Ending Time: 23:16 Attestations NPU Medical Necessity Statement*: Inpatient hospitalization is medically necessary and be clinically appropriate at this time. We will monitor/initiate medications and make changes as indicated likely discharge directly to inpatient substance abuse treatment. The likely discharge tommorow. Coding Level of Care Code Acute Code for [facility] Fwd Diagnoses Acute psychosis F23 Bipolar disorder F31.9 Personality disorder F60.9 PTSD (post-traumatic stress disorder) F43.10 Methamphetamine use disorder, severe F15.20 Cannabis use disorder F12.90
[2023-01-12] MEDS: polyethylene glycol 3350 Pkt 17 gm PO (18:50)
--- NOTE | 2023-01-12 18:51 | PC.NURSE ---
PRN MIRALAX 1 PACKET GIVEN PO PER PT C/O CONSTIPATION, VOICED SHE HAD A BOWEL MOVEMENT YESTERDAY, WILL CONT TO MONITOR
[2023-01-12 20:15] VITALS: BP 109/76; PULSE 86; RESP 16; TEMP 36.7; O2SAT 94
[2023-01-12] MEDS: trazodone 100 mg Tablet 150 MG PO (20:43)
[2023-01-12] MEDS: tizanidine 4 mg Tablet PO (20:44)
[2023-01-12] MEDS: hyDROXYzine 25 mg Capsule 50 MG PO (20:45)
--- NOTE | 2023-01-12 20:45 | PC.NURSE ---
PT STATED I WANT MY PRN MUSCLE RELAXER PT WAS GIVEN TIZANIDINE ORDERED.
--- NOTE | 2023-01-12 20:50 | PC.NURSE ---
PT STATED I NEED A PRN MEDICATION FOR SLEEP. VISTARIL WAS GIVEN ORDERED.
[2023-01-12 20:58] VITALS: BP 109/70; PULSE 86; RESP 16; TEMP 36.7; O2SAT 94
[2023-01-13 06:00] VITALS: BP 111/75; PULSE 69; RESP 16; TEMP 36.8; O2SAT 95
--- NOTE | 2023-01-13 08:16 | W.PM.NPUDCS ---
Diagnoses at Discharge Discharge Diagnosis (1) Acute psychosis: Status: Resolved (2) Bipolar disorder: Status: Chronic (3) Personality disorder: Status: Acute (4) PTSD (post-traumatic stress disorder): Status: Chronic (5) Methamphetamine use disorder, severe: Status: Acute (6) Cannabis use disorder: Status: Resolved Reason for Visit Reason for Visit: 96 HOUR HOLD Brief History: History of Present Illness Viviane Daniels is a 42 year old female who presented to the emergency department following report: Chief Complaint: Psychiatric Symptoms Stated Complaint: 96 HOUR HOLD Time Seen by Provider: 12/26/22 22:39 Source: patient and police Mode of arrival: other (police) Limitations: no limitations History of Present Illness:?? 42-year-old female is here with police on a 96-hour hold she has a history of methamphetamine abuse per police family put under 96 because she has been using meth again she was threatening to harm them along with harm herself here patient is cleared under the influence of methamphetamine with some flight of ideas she denies any suicidality at this time. Associated symptoms: Reports depression. She is admitted neuropsychiatric unit for definitive treatment of those issues.? She presents in clear methamphetamine intoxication/withdrawal/psychosis.? Speaking nonsense most of the time but then having moments of clarity where she essentially talked about how she should not be in the hospital and that she done nothing wrong.? She repeated allergies again again and gets frustrated when this expert medical writer attempted to comprehend or understand what she is saying.? She did state that when I do not understand and then base that she discharged because she reports she has done nothing.? She had not had a urine drug screen and she said she would get one but has not given one yet.? She otherwise and no clear information to understand the logistics of the time since she has been here.? Her last hospitalization was in November of this year and a discharge summary is included below for history and context. Per her 12/03/2022 [facility] inpatient psychiatric discharge summary: Discharge Diagnosis (1) Acute psychosis: ? ? ? Status: Resolved (2) Bipolar disorder: ? ? ? Status: Chronic (3) Personality disorder: ? ? ? Status: Acute (4) PTSD (post-traumatic stress disorder): ? ? ? Status: Acute (5) Methamphetamine use disorder, severe: ? ? ? Status: Acute (6) Cannabis use disorder: ? ? ? Status: Acute Reason for Visit Reason for Visit:?? 96 HOUR HOLD? Brief History: History of Present Illness Viviane Daniels is a 42 year old female who presented to the emergency department with the following report: Chief Complaint: Psychiatric Symptoms Stated Complaint: 96 HOUR HOLD Time Seen by Provider: 11/28/22 11:29 Source: patient Mode of arrival: other (Law enforcement) History of Present Illness:?? 42-year-old female presents emergency room in custody with law enforcement.? She was brought into on a court ordered 96-hour hold.? She was at [facility] yesterday when evidently there is a concern about her using meth was also several mentions of others telling the [facility] counselor about abnormal behavior and potentially suicidal behavior.? Step mother wrote a affidavit about her laying on the bed with a belt around her neck and a later patient denies recalling any that she denies being suicidal or homicidal.? She states she has used meth in the past but cannot recall the last time she used meth and offers to take a drug test to prove.? She is agreeable and plate participates in conversation with a history. Relieving factors: none Associated symptoms: Deny auditory hallucinations, visual hallucinations, delusions, depression, homicidal ideation, suicidal ideation or racing thoughts Patient presented today reporting that she is doing fine.? Initially she was fairly dishonest and said that her mother was making things up and that she did not know what the nurse practitioner was talking about in her evaluation.? The nurse practitioner along with the mother wrote affidavits for the 96-hour hold.? An excerpt of the nurse practitioner's note is included below for context given that her current presentation does not reflect that context.? She basically suggested that both the writers of the affidavits somehow were very confused and she had no explanation for why her mother would do that and why the nurse practitioner got it so wrong.? She initially lied about her amphetamine/methamphetamine use saying that she had not used since before the hospitalization where she met this expert medical writer 3 to 4 weeks ago.? However her UDS was positive for cannabis and amphetamines.? Which allowed for a more robust conversation.? We discussed the fact that it is very likely that the report from her mother and the nurse practitioner is very accurate and that her current presentation is a reflection of the period of time since she was actively using.? She ultimately acknowledged that that was true and that she continues to struggle with use.? We discussed the fact that in her last hospitalization we were attempting to assist her to get to a drug and alcohol/sober living treatment facility to begin to address her addiction.? She endorsed a willingness to continue her current medication and allow us to assist her with her ongoing depression, hallucination and other symptoms that are in part caused by her drug use but then create more symptoms in her psychosocial realm.? We discussed a plan to work with the treatment team on Thursday to get her connected with services.? Additionally we were supposed to get her Latuda increased to 40 but in her active addiction she did not recall that the plan was to increase from 20-40 so she was being very paranoid thinking that her nurse practitioner was trying to do something bad to her.? She agreed to continue the medication at the current dose and we will increase the Latuda in a day or so. Hospital Course Hospital Course Discharge Summary: During the hospitalization, patient had routine laboratory studies which were within normal limits except for few outliers. Additionally there was a general medical evaluation which was also within normal limits and revealed no new acute processes. At the time of discharge, lethality was denied and psychosis was resolving. Mood and anxiety were well managed. Patient endorsed a plan to avoid all drugs of abuse and follow-up with the aftercare recommendations of the treatment team. Patient was evaluated and deemed to be absent credible lethality, and had achieved the maximum benefit from an inpatient hospitalization, so was discharged. Involuntary Hold Information 96 Hour Hold: 96 Hour Involuntary Admission: Yes 96 Hour Hold Ending Date: 01/01/23 96 Hour Hold Ending Time: 23:16 Mental Status Exam MSE Comments: This is a slender white female in hospital scrubs with limited grooming and adequate eye contact. No abnormal movements except for significant psychomotor agitation. She was cooperative with exam and in no acute distress. Speech was normal in rate, rhythm and volume. Mood described as great. Her affect is brighter. She remains less hyperkinetic. Thought process more organized and linear. Thought content: Patient denies suicidal or homicidal ideation, there was no overt paranoia noted. She denied auditory or visual hallucinations and did not appear to be responding to internal stimuli. Attention span appeared improved. Concentration was adequate. She was alert and oriented times x 3. Insight appear improving. Judgment was guarded and impulse control was showing improvement. Discharge Data Studies Completed and Pending: Laboratory Results WBC 6.9 10^3/uL (4.0- 10.0) 12/26/22 22:57 RBC 4.44 10^6/uL (4.1 -5.3) 12/26/22 22:57 Hgb 12.0 g/dL (11.5-1 5.3) 12/26/22 22:57 Hct 38.6 % (37.0-47.0 ) 12/26/22 22:57 MCV 86.9 fl (81-99) 12/26/22 22:57 MCH 27.0 pg (28.0-34. 0) L 12/26/22 22:57 MCHC 31.1 g/dL (30.0-3 6.0) 12/26/22 22:57 RDW 14.8 % (12.1-15.1 ) 12/26/22 22:57 Plt Count 307 10^3/cmm (130 -400) 12/26/22 22:57 MPV 9.6 fL (7.4-10.4) 12/26/22 22:57 Neut % (Auto) 65.4 % 12/26/22 22:57 Lymph % (Auto) 20.3 % 12/26/22 22:57 Story % (Auto) 10.8 % 12/26/22 22:57 Eos % (Auto) 2.3 % 12/26/22 22:57 Baso % (Auto) 0.9 % 12/26/22 22:57 Neut # (Auto) 4.48 10^3/uL (1.8 -7.7) 12/26/22 22:57 Lymph # (Auto) 1.4 10^3/uL (0.8- 4.8) 12/26/22 22:57 Story # (Auto) 0.7 10^3/uL (0.2- 0.9) 12/26/22 22:57 Eos # (Auto) 0.2 10^3/uL (0.0- 0.8) 12/26/22 22:57 Baso # (Auto) 0.1 10^3/uL (0.0- 0.1) 12/26/22 22:57 Nucleated RBC % (a uto) 0 % 12/26/22 22:57 Nucleated RBCs # 0.0 /100WBC 12/26/22 22:57 Sodium 140 mmol/L (136-1 45) 12/26/22 22:57 Potassium 4.4 mmol/L (3.5-5 .1) 12/26/22 22:57 Chloride 100 mmol/L (98-10 7) 12/26/22 22:57 Carbon Dioxide 26 mmol/L (22-29) 12/26/22 22:57 Anion Gap 18.4 (5-19) 12/26/22 22:57 BUN 11 mg/dL (6-20) 12/26/22 22:57 Creatinine 0.8 mg/dL (0.5-0. 9) 12/26/22 22:57 GFR Calculation 78.3 mL/min (90-1 30) L 12/26/22 22:57 Glucose 118 mg/dL (65-115 ) H 12/26/22 22:57 Calculated Osmolal ity 290 mOsm/kg (285- 295) 12/26/22 22:57 Calcium 9.9 mg/dL (8.5-10 .5) 12/26/22 22:57 Total Bilirubin 0.5 mg/dL (0.15-1 .2) 12/26/22 22:57 AST 45 U/L (0-32) H 12/26/22 22:57 ALT 25 U/L (0-33) 12/26/22 22:57 Alkaline Phosphata se 104 U/L (35-105) 12/26/22 22:57 Total Protein 7.8 g/dL (6.6-8.7 ) 12/26/22 22:57 Albumin 5.2 g/dL (3.5-5.2 ) 12/26/22 22:57 Globulin 2.6 g/dL (1.3-4.6 ) 12/26/22 22:57 HCG, Qual Negative (Negati ve) 12/27/22 12:55 Salicylates < 0.3 mg/dL (3-10 ) L 12/26/22 22:57 Urine Opiates Scre en Negative ng/mL (N egative) 12/27/22 12:55 Acetaminophen < 5.0 ug/mL (10-3 0) L 12/26/22 22:57 Ur Barbiturates Sc reen Negative ng/mL (N egative) 12/27/22 12:55 Ur Phencyclidine S crn Negative ng/mL (N egative) 12/27/22 12:55 Ur Amphetamines Sc reen Positive ng/mL (N egative) H 12/27/22 12:55 U Benzodiazepines Scrn Negative ng/mL (N egative) 12/27/22 12:55 Urine Cocaine Scre en Negative ng/mL (N egative) 12/27/22 12:55 U Marijuana (THC) Screen Positive ng/mL (N egative) H 12/27/22 12:55 Ethyl Alcohol < 10 mg/dL (0-10) 12/26/22 22:57 Vitals: Last Vital Signs Temp 98.2 F 01/13/23 06:00 Pulse 69 01/13/23 06:00 Resp 16 01/13/23 06:00 BP 111/75 01/13/23 06:00 Pulse Ox 95 01/13/23 06:00 O2 Del Method 01/13/23 06:00 Discharge Plan Discharge Patient Disposition: Home Condition: Stable Prescriptions: New trazodone 100 mg Tablet 150 mg PO BEDTIME 30 Days Qty: 45 1RF duloxetine 30 mg Capsule,Delayed Release(Dr/Ec) 90 mg PO DAILY 30 Days Qty: 90 1RF Latuda 20 mg Tablet 40 mg PO DAILY 30 Days Qty: 60 1RF methylphenidate HCl 10 mg Tablet 10 mg PO TID@09,13,16 Qty: 90 0RF Continued ibuprofen 600 mg tablet 600 mg PO Q6H PRN (Reason: pain) Qty: 60 0RF hydroxyzine pamoate 50 mg capsule 50 mg PO BID PRN (Reason: Anxiety) 30 Days Qty: 60 2RF Rx Instructions: Take one capsule twice daily, if needed, for anxiety Miralax 17 gram/dose powder 17 g PO DAILY PRN (Reason: constipation) 15 Days Qty: 119 0RF albuterol sulfate 90 mcg/actuation HFA aerosol inhaler 1 puff inhalation QID PRN (Reason: shortness of breath or wheezing) 30 Days Qty: 8.5 1RF acetaminophen 500 mg capsule 1,000 mg PO Q6H PRN (Reason: pain) 15 Days Qty: 60 1RF Lyrica 150 mg capsule 150 mg PO BID 30 Days Qty: 60 1RF Changed Zanaflex 4 mg tablet 4 mg PO BID PRN (Reason: Muscle Spasm) Qty: 60 1RF Rx Instructions: TAKE 1 TABLET BY MOUTH TWICE DAILY NEEDED Discontinued fluticasone propionate [Flonase Allergy Relief] 50 mcg/actuation spray,suspension 2 spray intranasal DAILY Qty: 16 2RF Rx Instructions: administer into each nostril duloxetine 60 mg capsule,delayed release(DR/EC) 60 mg PO DAILY Qty: 30 2RF Rx Instructions: Take one capsule by mouth every morning; stop 20 mg twice daily dose trazodone 100 mg tablet 100 mg PO .q hs Qty: 30 2RF Rx Instructions: Take one tablet daily at bedtime, if needed for insomnia atomoxetine [Strattera] 80 mg capsule 80 mg PO DAILY Rx Instructions: Start when 40 mg complete Latuda 20 mg tablet 40 mg PO DAILY Rx Instructions: Take two tablets every morning with a meal/snack of at least 350 calories No Action Miralax 17 gram powder in packet 17 g PO DAILY PRN (Reason: constipation) Qty: 14 0RF fluticasone propionate [Flonase Allergy Relief] 50 mcg/actuation spray,suspension 2 spray intranasal DAILY 30 Days Qty: 16 2RF Rx Instructions: administer into each nostril Protonix 40 mg tablet,delayed release (DR/EC) 40 mg PO DAILY Qty: 60 0RF Discharge Orders: Discharge Order (Routine); Ordered 01/13/23 Ordered By: José Miguel Angeles Referrals: [facility] [Other] - 01/13/23 Jackie Durán APRN [Nurse Practitioner] - 01/15/23 11:15 am (Appointment scheduled on 01/15/23 at 11:15.) Stalin Nieves MD [Primary Care Provider] - Discharge Diet: Usual diet Discharge Activity: Resume usual activity Patient Instructions: Trazodone (By mouth), Duloxetine (By mouth), Lurasidone (By mouth), Methylphenidate, Biphasic (By mouth) (Aptensio XR, Ritalin [place]), Opioid Safety Discharge Attestations NPU Time Spent in Discharge Care*: less than 30 min Specific Discharge Activities: Specific discharge activities: educating patient, discussing with rehabilitation caseworker/social workers/dc planners, documenting/other paperwork and evaluating patient/reviewing data Coding Level of Care Code Acute Chg FW DC note Diagnoses Acute psychosis F23 Bipolar disorder F31.9 Personality disorder F60.9 PTSD (post-traumatic stress disorder) F43.10 Methamphetamine use disorder, severe F15.20 Cannabis use disorder F12.90
[2023-01-13] MEDS: lurasidone 20 mg Tablet 40 MG PO (08:36)
[2023-01-13] MEDS: pregabalin 150 mg Capsule PO (08:36)
[2023-01-13] MEDS: duloxetine 30 mg Capsule 90 MG PO (08:37)
[2023-01-13] MEDS: pantoprazole DR 40 mg Tablet PO (08:37)
[2023-01-13] MEDS: methylphenidate 10 mg Tablet PO (08:37)
[2023-01-13] MEDS: tizanidine 4 mg Tablet PO (08:40)
[2023-01-13] MEDS: ciprofloxacin-dexameth Otic Susp 7.5 mL Btl 4 DROP EAR-RIGHT (08:40)
[2023-01-13] MEDS: nicotine 4 mg lozenge MUCOUS MEM (08:40)
[2023-01-13 09:25] VITALS: BP 111/75; PULSE 69; RESP 16; TEMP 36.8; O2SAT 95
== END 2023-01-13 10:30 | disposition home or self-care (01) | DRG 897 ==
LOC: ER 23:03 → NP 23:20
PROVIDERS: Admitting Provider Psychiatry & Neurology Psychiatry; Emergency Provider Emergency Medicine; PCP Family Medicine; Visit Provider Psychiatry & Neurology Psychiatry
DX: F15.259 Other stimulant dependence with stimulant-induced psychotic disorder, unspecified (principal); F31.9 Bipolar disorder, unspecified; F60.9 Personality disorder, unspecified; F43.10 Post-traumatic stress disorder, unspecified; F12.90 Cannabis use, unspecified, uncomplicated; F90.9 Attention-deficit hyperactivity disorder, unspecified type; F17.210 Nicotine dependence, cigarettes, uncomplicated
CPT/HCPCS: 80053; 80306; 80307; 81025; 85025; 94640; 97150; 97165; 99238; 99285; J7613

== ENCOUNTER 2023-01-14 22:38 | Emergency (ER) | payer MEDICAID, SELFPAY ==
[2023-01-14 22:39] VITALS: BP 148/102; PULSE 83; RESP 18; TEMP 36.7; O2SAT 99
--- NOTE | 2023-01-14 22:57 | ED_ITS ---
HPI - Abdominal Pain General: Chief Complaint: Abdominal Pain Stated Complaint: abdomen distention, pain Time Seen by Provider: 01/14/23 22:50 Source: patient Mode of arrival: ambulatory Limitations: no limitations History of Present Illness: 42-year-old female who states that she has had constipation over the last 3 days she states she is only having very small bowel movements states she does feel like her abdomen is got distended having some diffuse cramping pain she rates her pain a 3 out of 10 no vomiting no fever she denies any worsening improving factors at this time. States she is also not been taking her Protonix because she has been in rehab. Associated Symptoms: Reports constipation; Denies chills, dysuria and fever(s) Review of Systems Const: Denies: fever(s), chills, body aches or change in appetite Eyes: Denies: blurry vision or eye discomfort ENMT: Denies: throat pain or dental pain Card: Denies: chest pain Resp: Denies: dyspnea GI: Reports: abdominal pain and constipation : Denies: dysuria Musc: Denies: neck pain or back pain Skin/Breast: Denies: rash Neuro: Denies: headache(s) Psych: Denies: depression Andrzej/Lymph: Denies: easy bruising All/Imm: Denies: urticaria PFSH ED PFSH: Medical History ADHD Bipolar disorder Herniated disc Methamphetamine use disorder, moderate, in early remission Personality disorder Psychiatric care PTSD (post-traumatic stress disorder) Surgical History History of foot surgery left foot, reconstructive due to no arch Family History Grandmother Dementia Diabetes Father Psychiatric illness Hypertension Other Bipolar disorder Denies family history of CAD (coronary artery disease) Clotting disorder Hyperlipidemia Chronic kidney disease (CKD) Anesthesia complication Bleeding disorder Lung disease Cancer Stroke Social History Smoking and tobacco status: current every day smoker cigarettes [ Other cigar ette details: 1/3PPD, 30 PY, started at 12yo] Alcohol intake: never Desire information about alcohol rehabilitation?: No Desire information about substance/drug rehabilitation?: No Adopted: No Caregiver/support person: No Lives independently: Yes Current occupational status: unemployed Current gender identity: Female Special ashley needs: No Female Reproductive History: Para: 2 Spontaneous abortions: Yes Physical Exam Const: COMMON NORMALS: no acute distress, patient oriented x3 and healthy ap pearing HENMT: COMMON NORMALS: normocephalic and atraumatic HEAD & SCALP: normocephalic and atraumatic Eye: COMMON NORMALS: Equal, round and reactive pupils present and EOMs intact bilaterally PUPIL: Yes Equal, round and reactive pupils present Neck/C-Spine: COMMON NORMALS: full ROM and supple Chest: COMMONS NORMALS: normal inspection of the chest and normal palpation of entire chest wall Resp: COMMON NORMALS: normal respiratory effort, No retractions, No use of accessory muscles and clear to auscultation bilaterally AUSCULTATION: clear to auscultation bilaterally Cardio: COMMON NORMALS: regular rate, regular rhythm and No murmurs present (Cardio) RATE: regular rate RHYTHM: regular rhythm GI: COMMON NORMALS: Normal to inspection, nondistended, normoactive bowel sounds present, Soft to palpation, non-tender and no masses PALPATION: Yes Soft to palpation Extremity: COMMON NORMALS: normal to inspection and full ROM Neuro: COMMON NORMALS: patient oriented x3, moves all extremities and no focal motor deficits Psych: COMMON NORMALS: mental status grossly normal, Normal thought process pr esent and cooperative THOUGHT PROCESS: Normal thought process present Skin: COMMON NORMALS: no rashes or lesions noted and no wounds GENERAL SKIN EXAM: no rashes or lesions noted Course Vital Signs: Vital signs: Vital Signs Temperature 98.1 F 01/14/23 22:39 Pulse Rate 83 01/14/23 22:39 Respiratory Rate 18 01/14/23 22:39 Blood Pressure 148/102 01/14/23 22:39 Pulse Oximetry 99 01/14/23 22:39 Oxygen Delivery Me thod 01/14/23 22:39 MDM - Abdominal Pain Medical Decision Making Patient presents here with abdominal pain from severe constipation she has had bowel movements here after lactulose is feeling improved we will place her on MiraLAX as well along with Protonix for her GERD exam is benign no sign of acute surgical abdomen. Lab Data 01/14/23 22:59 01/14/23 22:59 Labs/Radiology: Radiology Impressions KUB X-Ray 01/14/23 23:51 IMPRESSION: Severe constipation without bowel dilation to indicate obstruction. Laboratory Results WBC 6.9 10^3/uL (4.0-10.0) 01/14/23 22:59 RBC 4.29 10^6/uL (4.1-5.3) 01/14/23 22:59 Hgb 11.7 g/dL (11.5-15.3) 01/14/23 22:59 Hct 37.5 % (37.0-47.0) 01/14/23 22:59 MCV 87.4 fl (81-99) 01/14/23 22:59 MCH 27.3 pg (28.0-34.0) L 01/14/23 22: MCHC 31.2 g/dL (30.0-36.0) 01/14/23 22: RDW 14.9 % (12.1-15.1) 01/14/23 22:59 Plt Count 297 10^3/cmm (130-400) 01/14/23 22:59 MPV 10.7 fL (7.4-10.4) H 01/14/23 22:59 Neut % (Auto) 53.3 % 01/14/23 22:59 Lymph % (Auto) 33.6 % 01/14/23 22:59 [place] % (Auto) 8.8 % 01/14/23 22:59 Eos % (Auto) 2.9 % 01/14/23 22:59 Baso % (Auto) 1.3 % 01/14/23:59 Neut # (Auto) 3.69 10^3/uL (1.8-7.7) 01/14/23 22:59 Lymph # (Auto) 2.3 10^3/uL (0.8-4.8) 01/14/23 22:59 [place] # (Auto) 0.6 10^3/uL (0.2-0.9) 01/14/23 22:59 Eos # (Auto) 0.2 10^3/uL (0.0-0.8) 01/14/23 22:59 Baso # (Auto) 0.1 10^3/uL (0.0-0.1) 01/14/23:59 Nucleated RBC % (auto) 0 % 01/14/23 22:59 Nucleated RBCs # 0.0 /100WBC 01/14/23 22:59 Sodium 137 mmol/L (136-145) 01/14/23 22:59 Potassium 4.1 mmol/L (3.5-5.1) 01/14/23 22:59 Chloride 98 mmol/L (98-107) 01/14/23 22:59 Carbon Dioxide 26 mmol/L (22-29) 01/14/23 22:59 Anion Gap 17.1 (5-19) 01/14/23 22:59 BUN 17 mg/dL (6-20) 01/14/23 22:59 Creatinine 1.0 mg/dL (0.5-0.9) H 01/14/23 22:59 GFR Calculation 60.5 mL/min (90-130) L 01/14/23 22:59 Glucose 93 mg/dL (65-115) 01/14/23 22:59 Calculated Osmolality 285 mOsm/kg (285-295) 01/14/23 22:59 Calcium 9.6 mg/dL (8.5-10.5) 01/14/23 22:59 Total Bilirubin 0.2 mg/dL (0.15-1.2) 01/14/23 22:59 AST 23 U/L (0-32) 01/14/23 22:59 ALT < 5 U/L (0-33) 01/14/23 22:59 Alkaline Phosphatase 92 U/L (35-105) 01/14/23 22:59 Total Protein 7.7 g/dL (6.6-8.7) 01/14/23 22:59 Albumin 4.7 g/dL (3.5-5.2) 01/14/23 22:59 Globulin 3.0 g/dL (1.3-4.6) 01/14/23 22: Lipase 29 U/L (13-60) 01/14/23 22:59 HCG, Qual Negative (Negative) 01/14/23 22:59 Urine Color Yellow (Yellow) 01/14/23 22:59 Urine Appearance Clear (CLEAR) 01/14/23 22:59 Urine pH 5 (5-7) 01/14/23 22:59 Ur Specific [place] 1.015 (1.005-1.030) 01/14/23 22:59 Urine Protein Neg (Negative) 01/14/23 22:59 Urine Glucose (UA) Norm (Normal) 01/14/23 22:59 Urine Ketones Negative (Negative) 01/14/23 22:59 Urine Blood Neg (Negative) 01/14/23 22:59 Urine Nitrate Negative (Negative) 01/14/23 22:59 Urine Bilirubin Neg (Negative) 01/14/23 22:59 Urine Urobilinogen Norm mg/dL (Negative) 01/14/23 22:59 Ur Leukocyte Esterase Negative (Negative) 01/14/23 22:59 Discharge Plan Discharge Patient Disposition: Home Clinical Impression: Constipation Condition: Stable Prescriptions: New Miralax 17 gram powder in packet 17 g PO DAILY PRN (Reason: constipation) Qty: 14 0RF pantoprazole [Protonix] 40 mg tablet,delayed release (DR/EC) 40 mg PO DAILY Qty: 60 0RF No Action ibuprofen 600 mg tablet 600 mg PO Q6H PRN (Reason: pain) Qty: 60 0RF trazodone 100 mg Tablet 150 mg PO BEDTIME 30 Days Qty: 45 1RF duloxetine 30 mg Capsule,Delayed Release(Dr/Ec) 90 mg PO DAILY 30 Days Qty: 90 1RF Latuda 20 mg Tablet 40 mg PO DAILY 30 Days Qty: 60 1RF hydroxyzine pamoate 50 mg capsule 50 mg PO BID PRN (Reason: Anxiety) 30 Days Qty: 60 2RF Rx Instructions: Take one capsule twice daily, if needed, for anxiety Miralax 17 gram/dose powder 17 g PO DAILY PRN (Reason: constipation) 15 Days Qty: 119 0RF albuterol sulfate 90 mcg/actuation HFA aerosol inhaler 1 puff inhalation QID PRN (Reason: shortness of breath or wheezing) 30 Days Qty: 8.5 1RF Flonase Allergy Relief 50 mcg/actuation spray,suspension 2 spray intranasal DAILY 30 Days Qty: 16 2RF Rx Instructions: administer into each nostril acetaminophen 500 mg capsule 1,000 mg PO Q6H PRN (Reason: pain) 15 Days Qty: 60 1RF Lyrica 150 mg capsule 150 mg PO BID 30 Days Qty: 60 1RF methylphenidate HCl 10 mg Tablet 10 mg PO TID@,,16 Qty: 90 0RF Zanaflex 4 mg tablet 4 mg PO BID PRN (Reason: Muscle Spasm) Qty: 60 1RF Rx Instructions: TAKE 1 TABLET BY MOUTH TWICE DAILY NEEDED Discharge Orders: Discharge ED (Routine); Ordered 01/15/23 Ordered By: Janna Nuñez Referrals: Stalin Nieves MD [Primary Care Provider] - 1-3 days Discharge Diet: Advance as tolerated Discharge Activity: Resume usual activity Patient Instructions: Constipation (ED) Coding Level of Care Code ED Mechanical Integrity Specialist for Dahiana Garcia
[2023-01-14 23:04] LABS: Basophils # 0.1 10^3/uL (0.0-0.1); Basophils % 1.3 %; Eosinophils # 0.2 10^3/uL (0.0-0.8); Eosinophils % 2.9 %; Hematocrit 37.5 % (37.0-47.0); Hemoglobin 11.7 g/dL (11.5-15.3); Lymphocytes # 2.3 10^3/uL (0.8-4.8); Lymphocytes % 33.6 %; Mean Corpuscular HGB Conc 31.2 g/dL (30.0-36.0); Mean Corpuscular Hemoglobin 27.3 pg (28.0-34.0); Mean Corpuscular Volume 87.4 fl (81-99); Mean Platelet Volume 10.7 fL (7.4-10.4); Monocytes # 0.6 10^3/uL (0.2-0.9); Monocytes % 8.8 %; Neutrophils # 3.69 10^3/uL (1.8-7.7); Neutrophils % 53.3 %; Nucleated Red Blood Cells % 0 %; Platelet Count 297 10^3/cmm (130-400); Red Blood Count 4.29 10^6/uL (4.1-5.3); Red Cell Distribution Width 14.9 % (12.1-15.1); White Blood Count 6.9 10^3/uL (4.0-10.0)
[2023-01-14] MEDS: pantoprazole 40 mg SDV IVP (23:11)
[2023-01-14 23:17] LABS: HCG, Serum Qual Negative (Negative)
[2023-01-14 23:20] LABS: Alanine Aminotransferase < 5 U/L (0-33); Albumin Level 4.7 g/dL (3.5-5.2); Alkaline Phosphatase 92 U/L (35-105); Anion Gap 17.1 (5-19); Aspartate Amino Transferase 23 U/L (0-32); Blood Urea Nitrogen 17 mg/dL (6-20); Calcium 9.6 mg/dL (8.5-10.5); Carbon Dioxide 26 mmol/L (22-29); Chloride 98 mmol/L (98-107); Glomerular Filtration Rate 60.5 mL/min (90-130); Glucose 93 mg/dL (65-115); Lipase 29 U/L (13-60); Osmolality Calculated 285 mOsm/kg (285-295); Potassium 4.1 mmol/L (3.5-5.1); Sodium 137 mmol/L (136-145); Total Bilirubin 0.2 mg/dL (0.15-1.2); Total Protein 7.7 g/dL (6.6-8.7)
[2023-01-14 23:22] LABS: Add Urine Microscopic? NO; Charge for UA Resulting for Rev
[2023-01-14 23:24] LABS: Bilirubin Urine Neg (Negative); Blood Urine Neg (Negative); Glucose Urine UA Norm (Normal); Ketones Urine Negative (Negative); Leukocyte Esterase Urine Negative (Negative); Nitrate Urine Negative (Negative); Protein Urine Neg (Negative); Specific Gravity, Urine 1.015 (1.005-1.030); Urine Appearance Clear (CLEAR); Urine Color Yellow (Yellow); Urobilinogen Urine Norm (Negative); pH Urine 5 (5-7)
[2023-01-14 23:25] LABS: Slide Review Slide Review Perform
[2023-01-14] MEDS: Fleet Enema 133 mL Enema PR (23:50)
[2023-01-14] MEDS: lactulose oral liq 20 gm/30 mL UDC 30 GM PO (23:50)
--- NOTE | 2023-01-14 23:51 | XRR_ITS ---
PROCEDURE INFORMATION: Exam: XR Abdomen Exam date and time: 01/15/2023 12:00 AM Age: 42 years old Clinical indication: Abdominal tenderness and bloating and constipation; Additional info: Distention TECHNIQUE: Imaging protocol: Radiologic exam of the abdomen. Views: Frontal supine view of the abdomen. 1 View. COMPARISON: CR XR lumbar spine 2-3V* [id number] 11/09/2022 12:03 PM FINDINGS: Gastrointestinal tract: Severe constipation without bowel dilation to indicate obstruction. Bones/joints: Unremarkable. XR/XR KUB portable [id number] IMPRESSION: Severe constipation without bowel dilation to indicate obstruction.
[2023-01-15] MEDS: metoclopramide 10 mg Tablet PO (01:05)
[2023-01-15 01:16] VITALS: BP 135/109; PULSE 82; RESP 20; O2SAT 98
[2023-01-15 01:40] VITALS: BP 135/100; O2SAT 96
== END 2023-01-15 01:40 | disposition home or self-care (01) ==
PROVIDERS: Emergency Provider Emergency Medicine; PCP Family Medicine
DX: K59.00 Constipation, unspecified (principal); F17.210 Nicotine dependence, cigarettes, uncomplicated
CPT/HCPCS: 74018; 80053; 81003; 83690; 84703; 85025; 96374; 99284; C9113; J8597

== ENCOUNTER → 2023-02-05 11:43 | Outpatient (BNVA) | payer MEDICAID, SELFPAY | PROVIDERS: PCP Family Medicine; Visit Provider Nurse Practitioner Psychiatric/Mental Health | DX: Z79.899 Other long term (current) drug therapy (principal) | CPT/HCPCS: 80306 ==

== ENCOUNTER 2023-05-17 15:46 | Emergency (ER) | payer MEDICAID, SELFPAY ==
[2023-05-17 15:53] VITALS: BP 114/78; PULSE 91; RESP 18; O2SAT 96; BMI 26.9
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
--- NOTE | 2023-05-17 17:58 | PC.NURSE ---
assumed patient care
--- NOTE | 2023-05-17 18:21 | ED_ITS ---
HPI - General Adult General: Chief complaint: General Medical Stated complaint: rib pain on Right side Time Seen by Provider: 05/17/23 17:52 History of Present Illness: 43-year-old female presents emergency room complaining of right-sided rib pain she was using an innertube on the [place] and was bounced off has had rib pain since then this happened yesterday. It painful with a deep breath no hemoptysis. No particular shortness of breath. No other injuries. Associated symptoms: Reports chest pain; Deny dyspnea, malaise, nausea, rash, palpitations or vomiting Review of Systems Const: Reports: body aches; Denies: fever(s), chills, change in appetite, fatigue or malaise Card: Reports: chest pain; Denies: palpitations, irregular heart rhythm, edema, dyspnea on exertion or orthopnea Resp: Denies: dyspnea, productive cough or non-productive cough GI: Denies: abdominal pain, nausea, vomiting, hematemesis, coffee ground emesis, diarrhea, constipation, bloating, hematochezia or melena : Denies: flank pain, difficulty voiding, dysuria, urinary frequency or urinary urgency Skin/Breast: Denies: rash or pruritus PFSH ED PFSH: Medical History ADHD Bipolar disorder Herniated disc Methamphetamine use disorder, moderate, dependence Methamphetamine use disorder, moderate, in early remission Personality disorder Psychiatric care PTSD (post-traumatic stress disorder) Surgical History History of foot surgery left foot, reconstructive due to no arch Family History Grandmother Dementia Diabetes Father Psychiatric illness Hypertension Other Bipolar disorder Denies family history of CAD (coronary artery disease) Clotting disorder Hyperlipidemia Chronic kidney disease (CKD) Anesthesia complication Bleeding disorder Lung disease Cancer Stroke Social History Smoking and tobacco status: current every day smoker cigarettes [ Other cigarette details: 1/3PPD, 30 PY, started at 12yo] Alcohol intake: never Desire information about alcohol rehabilitation?: No Substance/Drug Use: current Substance/Drug use frequency: daily Other substance/drug use details: every few days Desire information about substance/drug rehabilitation?: No Adopted: No Caregiver/support person: No Lives independently: Yes Current occupational status: unemployed Current gender identity: Female Special ashley needs: No Female Reproductive History: Para: 2 Spontaneous abortions: Yes Physical Exam Const: GENERAL APPEARANCE: cooperative and comfortable ORIENTATION/CONSCIOUSNESS: Yes awake, Yes oriented to person, Yes oriented to place and Yes oriented to time HENMT: COMMON NORMALS: normocephalic, atraumatic and hearing grossly normal bilaterally HEAD & SCALP: normocephalic and atraumatic Chest: OTHER: Tenderness over the left lower ribs laterally and posteriorly Resp: COMMON NORMALS: normal respiratory effort, No retractions, No use of accessory muscles and clear to auscultation bilaterally AUSCULTATION: clear to auscultation bilaterally Cardio: COMMON NORMALS: regular rate, regular rhythm and No murmurs present (Cardio) RATE: regular rate RHYTHM: regular rhythm GI: COMMON NORMALS: Soft to palpation and No hepatosplenomegaly present AUSCULTATION: Yes normoactive bowel sounds PALPATION: Yes Soft to palpation, No Tenderness to palpation present (GI), No Guarding due to palpation present (GI) and Yes No hepatosplenomegaly present Extremity: COMMON NORMALS: normal to inspection, capillary refill normal, no clubbing, cyanosis or edema, no calf tenderness and no pedal edema Neuro: SENSORIUM/ORIENTATION: Yes oriented to person, Yes oriented to place and Yes oriented to time Skin: COMMON NORMALS: no rashes or lesions noted GENERAL SKIN EXAM: no rashes or lesions noted Course Vital Signs: Vital signs: Vital Signs Pulse Rate 91 05/17/23 15:53 Respiratory Rate 18 05/17/23 15:53 Blood Pressure 114/78 05/17/23 15:53 Pulse Oximetry 96 05/17/23 15:53 Oxygen Delivery Me thod Room Air 05/17/23 15:53 [facility] - General Adult Medical Decision Making Nondisplaced rib fractures on x-ray. No pneumothorax pneumonia or pulmonary contusion. Discharge home for indications follow-up as needed Medical Records I reviewed the patient's medical records. Lab Data I reviewed the patient's lab results. Radiology Impressions Ribs X-Ray 05/17/23 16:08 IMPRESSION: There is very subtle contour deformity of the posterior aspect of the right 9th and 10th ribs concerning for acute nondisplaced fractures. Discharge Plan Discharge Patient Disposition: Home Clinical Impression: Closed rib fracture Condition: Stable Prescriptions: New hydrocodone-acetaminophen 5-325 mg tablet 1 tab PO Q6H PRN (Reason: pain) Qty: 15 0RF No Action levocetirizine [Xyzal] 5 mg tablet 5 mg PO DAILY Qty: 90 1RF celecoxib [Celebrex] 100 mg capsule 100 mg PO BID Qty: 180 1RF atomoxetine 60 mg capsule 60 mg PO QAM Qty: 30 1RF Rx Instructions: Take one capsule by mouth every morning; stop 40 mg dose duloxetine 30 mg capsule,delayed release(DR/EC) 30 mg PO BID Qty: 60 1RF Rx Instructions: Take one capsule by mouth every morning and at 2 PM lurasidone 40 mg tablet 40 mg PO DAILY Qty: 30 1RF Rx Instructions: Take one tablet every morning; administer with food (at least 350 calories) mirtazapine [Remeron] 15 mg tablet 15 mg PO .q hs Qty: 30 1RF Rx Instructions: Take one tablet daily at bedtime trazodone 100 mg tablet See Rx Instructions PO .q hs PRN (Reason: insomnia) Qty: 30 1RF Rx Instructions: Take one-half to one tablet daily at bedtime, if needed for insomnia hydroxyzine pamoate 50 mg capsule 50 mg PO BID PRN (Reason: Anxiety) 30 Days Qty: 60 1RF Rx Instructions: Take one capsule twice daily, if needed, for anxiety fluticasone propionate [Flonase Allergy Relief] 50 mcg/actuation spray,suspension 2 spray intranasal DAILY 30 Days Qty: 16 2RF Rx Instructions: administer into each nostril Miralax 17 gram powder in packet 17 g PO DAILY PRN (Reason: constipation) Qty: 14 0RF acetaminophen 500 mg capsule 1,000 mg PO Q6H PRN (Reason: pain) 15 Days Qty: 60 1RF Zanaflex 4 mg tablet 4 mg PO BID PRN (Reason: Muscle Spasm) Qty: 60 1RF Rx Instructions: TAKE 1 TABLET BY MOUTH TWICE DAILY NEEDED Lyrica 150 mg capsule 150 mg PO BID 30 Days Qty: 60 1RF albuterol sulfate 90 mcg/actuation HFA aerosol inhaler 1 puff inhalation QID PRN (Reason: shortness of breath or wheezing) 30 Days Qty: 8.5 1RF Protonix 40 mg tablet,delayed release (DR/EC) 40 mg PO DAILY Qty: 60 0RF Discharge Orders: Discharge ED (Routine); Ordered 05/17/23 Ordered By: Martínez Lara Referrals: Stalin Nieves MD [Primary Care Provider] - Discharge Diet: Usual diet Discharge Activity: Resume usual activity Patient Instructions: Opioid Safety, Pain Management Activity Restrictions/Additional Instructions: You are seen today for rib fractures. Use pain medications as needed avoid any exertional activity follow-up with your primary care doctor for Coding Level of Care Code ED Manager Perioperative for Dahiana Garcia
== END 2023-05-17 18:22 | disposition home or self-care (01) ==
PROVIDERS: Emergency Provider Family Medicine; PCP Family Medicine
DX: S22.41XA Multiple fractures of ribs, right side, initial encounter for closed fracture (principal); F17.210 Nicotine dependence, cigarettes, uncomplicated; W16.112A Fall into natural body of water striking water surface causing other injury, initial encounter
CPT/HCPCS: 71101; 99283

== ENCOUNTER → 2023-06-16 13:11 | Outpatient (BNVA) | payer MEDICAID, SELFPAY | PROVIDERS: PCP Family Medicine; Visit Provider Podiatrist Foot & Ankle Surgery | DX: M21.611 Bunion of right foot (principal); M21.612 Bunion of left foot | CPT/HCPCS: 73630; 99203 ==

== ENCOUNTER → 2023-07-07 11:33 | Outpatient (BNVA) | payer MEDICAID, SELFPAY | PROVIDERS: PCP Family Medicine; Visit Provider Family Medicine | DX: M79.7 Fibromyalgia (principal) | CPT/HCPCS: 85025; 85651; 86140; 86160; 86162; 86200; 86225; 86235; 86255; 86376; 86431 ==

== ENCOUNTER → 2023-07-09 10:00 | Outpatient (BNVA) | payer MEDICAID, SELFPAY | PROVIDERS: PCP Family Medicine; Visit Provider Family Medicine | DX: Z12.4 Encounter for screening for malignant neoplasm of cervix (principal) | CPT/HCPCS: 87624 ==

== ENCOUNTER 2023-07-20 18:44 | Emergency (ER) | payer MEDICAID, SELFPAY ==
--- NOTE | 2023-07-20 18:49 | XRR_ITS ---
PROCEDURE INFORMATION: Exam: XR Chest Exam date and time: 07/20/2023 6:58 PM Age: 43 years old Clinical indication: Shortness of breath; Additional info: SOB TECHNIQUE: Imaging protocol: Radiologic exam of the chest. Views: 1 view. COMPARISON: CR (CHEST, ) 05/17/2023 4:39 PM FINDINGS: Lungs: There is no consolidation. Pleural spaces: No pleural effusion or pneumothorax. Heart/Mediastinum: The heart and mediastinum are normal in size. Bones/joints: Unremarkable. Notes: There are linear, rounded opacities in rosary bead configuration overlying the chest, likely outside of the patient. XR/XR chest 1V portable [id number] IMPRESSION: No acute cardiopulmonary findings.
[2023-07-20 19:15] VITALS: BP 139/91; PULSE 76; RESP 16; TEMP 36.7; O2SAT 97; BMI 28.3
[2023-07-20 21:13] LABS: Basophils # 0.1 10^3/uL (0.0-0.1); Basophils % 0.9 %; Eosinophils # 0.4 10^3/uL (0.0-0.8); Eosinophils % 3.9 %; Hematocrit 37.3 % (36-47); Lymphocytes # 2.1 10^3/uL (0.8-4.8); Lymphocytes % 21.8 %; Mean Corpuscular HGB Conc 31.6 g/dL (30-55); Mean Corpuscular Hemoglobin 29.1 pg (27-33); Mean Corpuscular Volume 91.9 fl (85-98); Mean Platelet Volume 11.4 fL (7.4-10.4); Monocytes # 0.7 10^3/uL (0.2-0.9); Monocytes % 6.9 %; Neutrophils # 6.36 10^3/uL (1.8-7.7); Neutrophils % 66.3 %; Nucleated Red Blood Cells % 0 %; Platelet Count 234 10^3/cmm (157-399); Red Blood Count 4.06 10^6/uL (3.85-5.65); Red Cell Distribution Width 15.9 % (12.1-15.1); White Blood Count 9.59 10^3/uL (3.29-11.43)
[2023-07-20 21:49] LABS: Alanine Aminotransferase 10 U/L (0-33); Albumin Level 4.8 g/dL (3.5-5.2); Alkaline Phosphatase 113 U/L (35-105); Anion Gap 12.2 (5-19); Aspartate Amino Transferase 14 U/L (0-32); Blood Urea Nitrogen 14 mg/dL (6-20); Calcium 9.2 mg/dL (8.5-10.5); Carbon Dioxide 28 mmol/L (22-29); Chloride 107 mmol/L (98-107); Globulin 2.4 g/dL (1.3-4.6); Glomerular Filtration Rate 60.2 mL/min (90-130); Glucose 91 mg/dL (65-115); NT Pro B Type Natriuretic Pept 117 pg/mL (0-125); Osmolality Calculated 296 mOsm/kg (285-295); Potassium 4.2 mmol/L (3.5-5.1); Sodium 143 mmol/L (136-145); Total Bilirubin 0.2 mg/dL (0.15-1.2); Total Protein 7.2 g/dL (6.6-8.7)
--- NOTE | 2023-07-21 01:05 | ED_ITS ---
HPI - SOB/Dyspnea General: Chief Complaint: Shortness of Breath/Dyspnea Stated Complaint: SOB\Sweats Time Seen by Provider: 07/21/23 01:05 History of Present Illness: HPI Narrative: 43-year-old female comes in today with complaints of chills, malaise, and body aches for the last 3 days after removing a tick from her left lower leg. Patient was concerned that she may have contracted a tick illness. Patient otherwise denies any significant complaints. Patient appears nontoxic. Patient appears in no pain. Review of Systems General: Reports: 10 or more systems reviewed and unremarkable except in HPI and below Const: Reports: chills and body aches PFSH ED PFSH: Medical History ADHD Bipolar disorder Herniated disc Methamphetamine use disorder, moderate, dependence Methamphetamine use disorder, moderate, in early remission Personality disorder Psychiatric care PTSD (post-traumatic stress disorder) Surgical History History of foot surgery left foot, reconstructive due to no arch Family History Grandmother Dementia Diabetes Father Psychiatric illness Hypertension Other Bipolar disorder Denies family history of CAD (coronary artery disease) Clotting disorder Hyperlipidemia Chronic kidney disease (CKD) Anesthesia complication Bleeding disorder Lung disease Cancer Stroke Social History Smoking and tobacco status: current every day smoker cigarettes [ Other cigaret te details: 1/3PPD, 30 PY, started at 12yo] Alcohol intake: never Desire information about alcohol rehabilitation?: No Substance/Drug Use: current Substance/Drug use frequency: daily Other sub stance/drug use details: every few days Desire information about substance/drug rehabilitation?: No Adopted: No Caregiver/support person: No Lives independently: Yes Current occupational status: unemployed Current gender identity: Female Special ashley needs: No Female Reproductive History: Para: 2 Spontaneous abortions: Yes Physical Exam Const: COMMON NORMALS: alert HENMT: COMMON NORMALS: normocephalic HEAD & SCALP: normocephalic Neck/C-Spine: COMMON NORMALS: full ROM Resp: COMMON NORMALS: normal respiratory effort and clear to auscultation bilaterally AUSCULTATION: clear to auscultation bilaterally Cardio: COMMON NORMALS: regular rate and regular rhythm RATE: regular rate RHYTHM: regular rhythm GI: COMMON NORMALS: Soft to palpation and non-tender PALPATION: Yes Soft to palpation Back/Pelvis: COMMON NORMALS: thoracic and lumbar spine normal to inspection Extremity: COMMON NORMALS: full ROM Neuro: SENSORIUM/ORIENTATION: Yes alert Skin: NARRATIVE SKIN EXAM: Tick bite noted to the posterior left lower leg just below the knee Minimal redness no induration Course Vital Signs: Vital signs: Vital Signs Temperature 98.1 F 07/20/23 19:15 Pulse Rate 76 07/20/23 19:15 Respiratory Rate 16 07/20/23 19:15 Blood Pressure 139/91 07/20/23 19:15 Pulse Oximetry 97 07/20/23 19:15 Oxygen Delivery Me thod Room Air 07/20/23 19:15 MDM - SOB/Dyspnea Medical Decision Making 43-year-old female comes in today for concerns of a infected tick bite. Patient reports body aches, chills, and malaise for 3 days after removal of tick bite. On exam patient does have a tick bite to the left lower leg with minimal redness. Lungs are clear to auscultation. Heart rates regular. Abdomen soft nontender. Vital signs are normal. Differential diagnosis includes but not limited to tickborne illness, anxiety about health, viral syndrome, menopause. CBC and CMP were unremarkable. Outstanding tick panel. Discussed with patient and recommended doxycycline 100 mg twice a day for the next 10 days until tick panel can be returned. Patient reported understanding and agreed to plan. Patient was stable and discharged home with recommendations for follow-up with primary care. Lab Data 07/20/23 20:48 07/20/23 20:48 Labs/Radiology: Radiology Impressions Chest X-Ray 07/20/23 18:49 IMPRESSION: No acute cardiopulmonary findings. Laboratory Results WBC 9.59 10^3/uL (3.29-11.43) 07/20/23 20:48 RBC 4.06 10^6/uL (3.85-5.65) 07/20/23 20:48 Hgb 11.80 g/dL (11.27-16.99) 07/20/23 20:48 Hct 37.3 % (36-47) 07/20/23 20:48 MCV 91.9 fl (85-98) 07/20/23 20:48 MCH 29.1 pg (27-33) 07/20/23 20:48 MCHC 31.6 g/dL (30-55) 07/20/23 20:48 RDW 15.9 % (12.1-15.1) H 07/20/23 20:48 Plt Count 234 10^3/cmm (157-399) 07/20/23 20:48 MPV 11.4 fL (7.4-10.4) H 07/20/23 20:48 Neut % (Auto) 66.3 % 07/20/23 20:48 Lymph % (Auto) 21.8 % 07/20/23 20:48 Dubois % (Auto) 6.9 % 07/20/23 20:48 Eos % (Auto) 3.9 % 07/20/23 20:48 Baso % (Auto) 0.9 % 07/20/23 20:48 Neut # (Auto) 6.36 10^3/uL (1.8-7.7) 07/20/23 20:48 Lymph # (Auto) 2.1 10^3/uL (0.8-4.8) 07/20/23 20:48 Dubois # (Auto) 0.7 10^3/uL (0.2-0.9) 07/20/23 20:48 Eos # (Auto) 0.4 10^3/uL (0.0-0.8) 07/20/23 20:48 Baso # (Auto) 0.1 10^3/uL (0.0-0.1) 07/20/23 20:48 Nucleated RBC % (auto) 0 % 07/20/23 20:48 Nucleated RBCs # 0.0 /100WBC 07/20/23 20:48 Sodium 143 mmol/L (136-145) 07/20/23 20:48 Potassium 4.2 mmol/L (3.5-5.1) 07/20/23 20:48 Chloride 107 mmol/L (98-107) 07/20/23 20:48 Carbon Dioxide 28 mmol/L (22-29) 07/20/23 20:48 Anion Gap 12.2 (5-19) 07/20/23 20:48 BUN 14 mg/dL (6-20) 07/20/23 20:48 Creatinine 1.0 mg/dL (0.5-0.9) H 07/20/23 20:48 GFR Calculation 60.2 mL/min (90-130) L 07/20/23 20:48 Glucose 91 mg/dL (65-115) 07/20/23 20:48 Calculated Osmolality 296 mOsm/kg (285-295) H 07/20/23 20:48 Calcium 9.2 mg/dL (8.5-10.5) 07/20/23 20:48 Total Bilirubin 0.2 mg/dL (0.15-1.2) 07/20/23 20:48 AST 14 U/L (0-32) 07/20/23 20:48 ALT 10 U/L (0-33) 07/20/23 20:48 Alkaline Phosphatase 113 U/L (35-105) H 07/20/23 20:48 NT-Pro-B Natriuret Pep 117 pg/mL (0-125) 07/20/23 20:48 Total Protein 7.2 g/dL (6.6-8.7) 07/20/23 20:48 Albumin 4.8 g/dL (3.5-5.2) 07/20/23 20:48 Globulin 2.4 g/dL (1.3-4.6) 07/20/23 20:48 Discharge Plan Discharge Patient Disposition: Home Clinical Impression: Tick bite Qualifiers: Encounter type: initial encounter Site of tick bite: lower leg Laterality: left Qualified Code(s): S80.862A - Insect bite (nonvenomous), left lower leg, initial encounter Condition: Stable Prescriptions: New doxycycline monohydrate 100 mg capsule 100 mg PO BID Qty: 20 0RF No Action levocetirizine [Xyzal] 5 mg tablet 5 mg PO DAILY Qty: 90 1RF celecoxib [Celebrex] 100 mg capsule 100 mg PO BID Qty: 180 1RF Zanaflex 4 mg tablet 4 mg PO BID PRN (Reason: Muscle Spasm) Qty: 60 1RF Rx Instructions: TAKE 1 TABLET BY MOUTH TWICE DAILY NEEDED Protonix 40 mg tablet,delayed release (DR/EC) 40 mg PO DAILY Qty: 60 0RF prednisone 20 mg tablet 40 mg PO DAILY 5 Days Qty: 10 0RF trazodone 100 mg tablet See Rx Instructions PO .q hs PRN (Reason: insomnia) Qty: 30 1RF Rx Instructions: Take one-half to one tablet daily at bedtime, if needed for insomnia atomoxetine 60 mg capsule 60 mg PO QAM Qty: 30 1RF Rx Instructions: Take one capsule by mouth every morning duloxetine 30 mg capsule,delayed release(DR/EC) 30 mg PO BID Qty: 60 1RF Rx Instructions: Take one capsule by mouth every morning and at 2 PM lurasidone 40 mg tablet 40 mg PO DAILY Qty: 30 1RF Rx Instructions: Take one tablet every morning; administer with food (at least 350 calories) mirtazapine [Remeron] 15 mg tablet 15 mg PO .q hs Qty: 30 1RF Rx Instructions: Take one tablet daily at bedtime clonazepam 0.5 mg tablet See Rx Instructions PO DAILY PRN (Reason: anxiety/panic symptoms) Qty: 30 1RF Rx Instructions: Take one-half to one tablet once daily, if needed for anxiety/panic symptoms Miralax 17 gram powder in packet 17 g PO DAILY PRN (Reason: constipation) Qty: 14 0RF Lyrica 150 mg capsule 150 mg PO BID 30 Days Qty: 60 1RF albuterol sulfate 90 mcg/actuation HFA aerosol inhaler 1 puff inhalation QID PRN (Reason: shortness of breath or wheezing) 30 Days Qty: 8.5 0RF fluticasone propionate [Flonase Allergy Relief] 50 mcg/actuation spray,suspens ion 2 spray intranasal DAILY 30 Days Qty: 16 2RF Rx Instructions: administer into each nostril acetaminophen 500 mg capsule 1,000 mg PO Q6H PRN (Reason: pain) 15 Days Qty: 60 1RF Discharge Orders: Discharge ED (Routine); Ordered 07/21/23 Ordered By: Remy Caldwell Referrals: Stalin Nieves MD [Primary Care Provider] - Discharge Diet: Usual diet Discharge Activity: Increase activity as tolerated Patient Instructions: Tick Bite (ED) Activity Restrictions/Additional Instructions: Take antibiotics as directed. Follow-up with primary care for results of tick panel. Return to ED for new concerns. Coding Level of Care Code ED Professor Of Literature for Dahiana Garcia
[2023-07-21] MEDS: doxycycline 100 mg Tablet PO (01:23)
[2023-07-21 01:27] VITALS: BP 139/91; PULSE 76; RESP 16; TEMP 36.7; O2SAT 97
[2023-07-22 13:03] LABS: Lyme AB Screen <0.90 index
[2023-07-25 20:20] LABS: E. Chaffeensis AB IGG <1:64; E. Chaffeensis AB IGM <1:20
[2023-07-30 15:59] LABS: RMSF IGG DETECTED; RMSF IGM NOT DETECTED
== END 2023-07-21 01:28 | disposition home or self-care (01) ==
PROVIDERS: Emergency Medicine; Emergency Provider Nurse Practitioner Family; PCP Family Medicine
DX: S80.862A Insect bite (nonvenomous), left lower leg, initial encounter (principal); W57.XXXA Bitten or stung by nonvenomous insect and other nonvenomous arthropods, initial encounter; F17.210 Nicotine dependence, cigarettes, uncomplicated
CPT/HCPCS: 36415; 71045; 80053; 83880; 85025; 86618; 86666; 86757; 99284

== ENCOUNTER 2023-08-10 10:39 | Outpatient (CLI) | payer MEDICAID, SELFPAY ==
--- NOTE | 2023-08-10 10:49 | MM_ITS ---
WS: [id number] BILATERAL SCREENING DIGITAL TOMOSYNTHESIS MAMMOGRAM WITH CAD HISTORY: breast exam screening COMPARISON: 04/28/2019 Bilateral CC and MLO views with tomosynthesis and synthetic mammography submitted. Computer aided det ection analyzed. Breast composition: There are scattered areas of fibroglandular density. No suspicious masses, microc alcifications or architectural distortion. IMPRESSION: MM/[place] [id number] BI-RADS: 1-Negative FOLLOW UP: 1 Year Follow-up
== END 2023-08-10 10:40 | disposition home or self-care (01) ==
PROVIDERS: PCP Family Medicine; Visit Provider Family Medicine
DX: Z12.39 Encounter for other screening for malignant neoplasm of breast (principal)
CPT/HCPCS: 77063; 77067

== ENCOUNTER → 2023-08-11 14:51 | Outpatient (BNVA) | payer MEDICAID, SELFPAY | PROVIDERS: PCP Family Medicine; Visit Provider Nurse Practitioner Psychiatric/Mental Health | DX: Z03.89 Encounter for observation for other suspected diseases and conditions ruled out (principal) | CPT/HCPCS: 80306 ==

== ENCOUNTER → 2023-09-03 15:30 | Outpatient (BNVA) | payer OTHER, SELFPAY | PROVIDERS: PCP Family Medicine; Visit Provider Nurse Practitioner Psychiatric/Mental Health | DX: F31.9 Bipolar disorder, unspecified (principal); Z79.899 Other long term (current) drug therapy | CPT/HCPCS: 80061; 83036 ==

== ENCOUNTER 2023-09-21 17:24 | Emergency (ER) | payer MEDICAID, SELFPAY ==
[2023-09-16 12:00] VITALS: BP 137/84; BMI 27.8
[2023-09-21 17:26] VITALS: BMI 31.3
[2023-09-21 17:32] VITALS: BP 147/109; PULSE 107; RESP 16; TEMP 37.2; O2SAT 97
--- NOTE | 2023-09-21 17:45 | W.ED.PSYCHS ---
Documented by User: Martínez Lara DO 09/22/23 06:34 HPI - Psych General: Chief Complaint: Psychiatric Symptoms Stated Complaint: 96 hr hold Time Seen by Provider: 09/21/23 17:34 Source: patient Mode of arrival: ambulatory History of Present Illness: 43-year-old female brought in by [facility] department under 96-hour hold of family and feel that the 96-hour hold stating she been behaving erratically due to methamphetamine use. On arrival here she initially was stoic and provides no responses after a bit we were able to get her to respond she states she was not sure why she was here we told the family had filled up a 96-hour hold concerned about methamphetamine use she denied any methamphetamine use she states she has ADHD and she is on Strattera she said she has not used any methamphetamine for nearly 8 months she is awake and alert extremely anxious but compliance and follows all directions. She has no aggression with our staff here. Review of Systems Const: Denies: fever(s) or chills Card: Denies: chest pain Resp: Denies: dyspnea GI: Denies: abdominal pain : Denies: dysuria, urinary frequency or urinary urgency Musc: Denies: neck pain or back pain Skin/Breast: Denies: rash PFSH ED PFSH: Medical History ADHD Bipolar disorder Herniated disc Methamphetamine use disorder, moderate, dependence Methamphetamine use disorder, moderate, in early remission Personality disorder Psychiatric care PTSD (post-traumatic stress disorder) Surgical History History of foot surgery left foot, reconstructive due to no arch Family History Grandmother Dementia Diabetes Father Psychiatric illness Hypertension Other Bipolar disorder Denies family history of CAD (coronary artery disease) Clotting disorder Hyperlipidemia Chronic kidney disease (CKD) Anesthesia complication Bleeding disorder Lung disease Cancer Stroke Social History Smoking and tobacco/nicotine status: current every day tobacco/nicotine user cigarettes Packs smoked per day: 0.5 [ Other cigarette details: 1/3PPD, 30 PY, started at 12yo] and e-cigarettes E-Cigarette Details: e-cigarette and with nicotine E-cig/vape details: every once in awhile Quit status (tobacco/nicotine): considering quitting Second hand smoke exposure: No Alcohol intake: current Alcohol intake frequency: holidays/special occasions only Alcohol type: hard liquor Substance/Drug Use: current Substance/Drug use frequency: few times a week Other substance/drug use details: every few days, December 25, 2022 last Methamphetamine use Adopted: No Caregiver/support person: No Lives independently: Yes Household members: family Housing: House Marital status: Legally Number of children: 2 Number of grandchildren: 0 Highest education level completed: Associate Degree: Academic Program Education level details: [employer]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 service: No Current occupational status: disabled Pets and animals: Yes Pets & animals: cat(s) and dog(s) Leisure activites: exercise, art and other Leisure activities details: watch TV Sexually active: No Do you think of yourself as: Straight/Heterosexual Current gender identity: Female Corinne/Latter Day: Zoroastrianism Special corinne needs: No Agree to transfusion: Yes Female Reproductive History: Para: 2 Spontaneous abortions: Yes Physical Exam Const: GENERAL APPEARANCE: cooperative and comfortable ORIENTATION/CONSCIOUSNESS: Yes awake, Yes oriented to person, Yes oriented to place and Yes oriented to time HENMT: COMMON NORMALS: normocephalic, atraumatic and hearing grossly normal bilaterally HEAD & SCALP: normocephalic and atraumatic Resp: COMMON NORMALS: normal respiratory effort, No retractions, No use of accessory muscles and clear to auscultation bilaterally AUSCULTATION: clear to auscultation bilaterally Cardio: COMMON NORMALS: regular rate, regular rhythm and No murmurs present (Cardio) RATE: regular rate RHYTHM: regular rhythm GI: COMMON NORMALS: Soft to palpation and No hepatosplenomegaly present AUSCULTATION: Yes normoactive bowel sounds PALPATION: Yes Soft to palpation, No Tenderness to palpation present (GI), No Guarding due to palpation present (GI) and Yes No hepatosplenomegaly present Extremity: COMMON NORMALS: normal to inspection, capillary refill normal, no clubbing, cyanosis or edema, no calf tenderness and no pedal edema Neuro: SENSORIUM/ORIENTATION: Yes oriented to person, Yes oriented to place and Yes oriented to time Skin: COMMON NORMALS: no rashes or lesions noted GENERAL SKIN EXAM: no rashes or lesions noted Course Vital Signs: Vital signs: Vital Signs Temperature 98.9 F 09/21/23 17:32 Pulse Rate 107 H 09/21/23 17:32 Respiratory Rate 16 09/21/23 17:32 Blood Pressure 147/109 09/21/23 17:32 Pulse Oximetry 97 09/21/23 17:32 Oxygen Delivery Me thod Room Air 09/21/23 17:32 MDM - Psych Medical Decision Making Patient brought in on a 96-hour hold awake and alert anxious but otherwise behaving appropriately at this time. Medical clearance labs ordered. Denies suicidal or homicidal thoughts denies use of methamphetamine in the last 8 months. However she is on Strattera for adult ADHD so drug test is likely to be positive. She does states she has been taking the medication regularly. Care signed out to Dr. Nuñez at change of shift. See final notes for diagnosis and disposition. Patient presented here under 96-hour hold she is not suicidal or homicidal patient was seen by Dr. Lindo psychiatrist in the ER who actually knows patient he agrees that she is not suicidal or homicidal does not require inpatient admission she is wanting to be discharged we did rescind her 96-hour hold will discharge at this time Medical Records I reviewed the patient's medical records. Lab Data I reviewed the patient's lab results. 09/21/23 17:45 09/21/23 17:45 Laboratory Results WBC 7.53 10^3/uL (3.29-11.43) 09/21/23 17:45 RBC 4.95 10^6/uL (3.85-5.65) 09/21/23 17:45 Hgb 14.20 g/dL (11.27-16.99) 09/21/23 17:45 Hct 44.1 % (36-47) 09/21/23 17:45 MCV 89.1 fl (85-98) 09/21/23 17:45 MCH 28.7 pg (27-33) 09/21/23 17:45 MCHC 32.2 g/dL (30-55) 09/21/23 17:45 RDW 14.1 % (12.1-15.1) 09/21/23 17:45 Plt Count 279 10^3/cmm (157-399) 09/21/23 17:45 MPV 11.2 fL (7.4-10.4) H 09/21/23 17:45 Neut % (Auto) 63.1 % 09/21/23 17:45 Lymph % (Auto) 22.3 % 09/21/23 17:45 [place] % (Auto) 10.2 % 09/21/23 17:45 Eos % (Auto) 2.8 % 09/21/23 17:45 Baso % (Auto) 1.3 % 09/21/23 17:45 Neut # (Auto) 4.75 10^3/uL (1.8-7.7) 09/21/23 17:45 Lymph # (Auto) 1.7 10^3/uL (0.8-4.8) 09/21/23 17:45 [place] # (Auto) 0.8 10^3/uL (0.2-0.9) 09/21/23 17:45 Eos # (Auto) 0.2 10^3/uL (0.0-0.8) 09/21/23 17:45 Baso # (Auto) 0.1 10^3/uL (0.0-0.1) 09/21/23 17:45 Nucleated RBC % (auto) 0 % 09/21/23 17:45 Nucleated RBCs # 0.0 /100WBC 09/21/23 17:45 Sodium 140 mmol/L (136-145) 09/21/23 17:45 Potassium 3.8 mmol/L (3.5-5.1) 09/21/23 17:45 Chloride 103 mmol/L (98-107) 09/21/23 17:45 Carbon Dioxide 23 mmol/L (22-29) 09/21/23 17:45 Anion Gap 17.8 (5-19) 09/21/23 17:45 BUN 10 mg/dL (6-20) 09/21/23 17:45 Creatinine 0.9 mg/dL (0.5-0.9) 09/21/23 17:45 GFR Calculation 68.0 mL/min (90-130) L 09/21/23 17:45 Glucose 102 mg/dL (65-115) 09/21/23 17:45 Calculated Osmolality 289 mOsm/kg (285-295) 09/21/23 17:45 Calcium 9.6 mg/dL (8.5-10.5) 09/21/23 17:45 Total Bilirubin 0.5 mg/dL (0.15-1.2) 09/21/23 17:45 AST 14 U/L (0-32) 09/21/23 17:45 ALT < 5 U/L (0-33) 09/21/23 17:45 Alkaline Phosphatase 94 U/L (35-105) 09/21/23 17:45 Total Protein 7.5 g/dL (6.6-8.7) 09/21/23 17:45 Albumin 4.8 g/dL (3.5-5.2) 09/21/23 17:45 Globulin 2.7 g/dL (1.3-4.6) 09/21/23 17:45 Salicylates < 0.3 mg/dL (3-10) L 09/21/23 17:45 Acetaminophen < 5.0 ug/mL (10-30) L 09/21/23 17:45 Ethyl Alcohol < 10 mg/dL (0-10) 09/21/23 17:45 Discharge Plan Discharge Patient Disposition: Home Clinical Impression: Depression Condition: Stable Prescriptions: No Action levocetirizine [Xyzal] 5 mg tablet 5 mg PO DAILY Qty: 90 1RF celecoxib [Celebrex] 100 mg capsule 100 mg PO BID Qty: 180 1RF lurasidone 60 mg tablet 60 mg PO DAILY Qty: 30 2RF Rx Instructions: Take one tablet each evening with dinner; take it with food (at least 350 calories) atomoxetine 60 mg capsule 60 mg PO QAM Qty: 30 2RF Rx Instructions: Take one capsule by mouth every morning duloxetine 60 mg capsule,delayed release(DR/EC) 60 mg PO .q am Qty: 30 2RF Rx Instructions: Take one capsule by mouth every morning duloxetine 30 mg capsule,delayed release(DR/EC) 30 mg PO .every day at 2 PM Qty: 30 2RF Rx Instructions: Take one capsule every day at 2 PM trazodone 100 mg tablet See Rx Instructions PO .q hs PRN (Reason: insomnia) Qty: 30 2RF Rx Instructions: Take one-half to one tablet daily at bedtime, if needed for insomnia Miralax 17 gram powder in packet 17 g PO DAILY PRN (Reason: constipation) Qty: 14 0RF albuterol sulfate 90 mcg/actuation HFA aerosol inhaler 1 puff inhalation QID PRN (Reason: shortness of breath or wheezing) 30 Days Qty: 8.5 0RF fluticasone propionate [Flonase Allergy Relief] 50 mcg/actuation spray,suspension 2 spray intranasal DAILY 30 Days Qty: 16 2RF Rx Instructions: administer into each nostril Lyrica 150 mg capsule 150 mg PO BID 30 Days Qty: 60 1RF Zanaflex 4 mg tablet 4 mg PO BID PRN (Reason: Muscle Spasm) Qty: 60 1RF Rx Instructions: TAKE 1 TABLET BY MOUTH TWICE DAILY NEEDED Protonix 40 mg tablet,delayed release (DR/EC) 40 mg PO DAILY Qty: 60 0RF acetaminophen 500 mg capsule 1,000 mg PO Q6H PRN (Reason: pain) 15 Days Qty: 60 1RF Discharge Orders: Discharge ED (Routine); Ordered 09/21/23 Ordered By: Janna Nuñez Referrals: Stalin Nieves MD [Primary Care Provider] - 1-3 days Discharge Diet: Advance as tolerated Discharge Activity: Resume usual activity Patient Instructions: Depression (ED) Coding Level of Care Code ED Drill Operator Automatic for Chg Fwd Documented by User: Janna Nuñez MD 09/21/23 19:12 HPI - Psych General: Chief Complaint: Psychiatric Symptoms Stated Complaint: 96 hr hold Time Seen by Provider: 09/21/23 17:34 PFSH ED PFSH: Medical History ADHD Bipolar disorder Herniated disc Methamphetamine use disorder, moderate, dependence Methamphetamine use disorder, moderate, in early remission Personality disorder Psychiatric care PTSD (post-traumatic stress disorder) Surgical History History of foot surgery left foot, reconstructive due to no arch Family History Grandmother Dementia Diabetes Father Psychiatric illness Hypertension Other Bipolar disorder Denies family history of CAD (coronary artery disease) Clotting disorder Hyperlipidemia Chronic kidney disease (CKD) Anesthesia complication Bleeding disorder Lung disease Cancer Stroke Social History Smoking and tobacco/nicotine status: current every day tobacco/nicotine user cigarettes Packs smoked per day: 0.5 [ Other cigarette details: 1/3PPD, 30 PY, started at 12yo] and e-cigarettes E-Cigarette Details: e-cigarette and with nicotine E-cig/vape details: every once in awhile Quit status (tobacco/nicotine): considering quitting Second hand smoke exposure: No Alcohol intake: current Alcohol intake frequency: holidays/special occasions only Alcohol type: hard liquor Substance/Drug Use: current Substance/Drug use frequency: few times a week Other substance/drug use details: every few days, December 25, 2022 last Methamphetamine use Adopted: No Caregiver/support person: No Lives independently: Yes Household members: family Housing: House Marital status: Legally Number of children: 2 Number of grandchildren: 0 Highest education level completed: Associate Degree: Academic Program 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 service: No Current occupational status: disabled Pets and animals: Yes Pets & animals: cat(s) and dog(s) Leisure activites: exercise, art and other Leisure activities details: watch TV Sexually active: No Do you think of yourself as: Straight/Heterosexual Current gender identity: Female Corinne/Latter Day: Zoroastrianism Special corinne needs: No Agree to transfusion: Yes Course Vital Signs: Vital signs: Vital Signs Temperature 98.9 F 09/21/23 17:32 Pulse Rate 107 H 09/21/23 17:32 Respiratory Rate 16 09/21/23 17:32 Blood Pressure 147/109 09/21/23 17:32 Pulse Oximetry 97 09/21/23 17:32 Oxygen Delivery Me thod Room Air 09/21/23 17:32 MDM - Psych Medical Decision Making Patient brought in on a 96-hour hold awake and alert anxious but otherwise behaving appropriately at this time. Medical clearance labs ordered. Denies suicidal or homicidal thoughts denies use of methamphetamine in the last 8 months. However she is on Strattera for adult ADHD so drug test is likely to be positive. She does states she has been taking the medication regularly. Care signed out to Dr. Nuñez at change of shift. See final notes for diagnosis and disposition. Care signed out to Dr. Nuñez at change of shift. See final notes for diagnosis and disposition. Patient presented here under 96-hour hold she is not suicidal or homicidal patient was seen by Dr. Lindo psychiatrist in the ER who actually knows patient he agrees that she is not suicidal or homicidal does not require inpatient admission she is wanting to be discharged we did rescind her 96-hour hold will discharge at this time Lab Data 09/21/23 17:45 09/21/23 17:45 Laboratory Results WBC 7.53 10^3/uL (3.29-11.43) 09/21/23 17:45 RBC 4.95 10^6/uL (3.85-5.65) 09/21/23 17:45 Hgb 14.20 g/dL (11.27-16.99) 09/21/23 17:45 Hct 44.1 % (36-47) 09/21/23 17:45 MCV 89.1 fl (85-98) 09/21/23 17:45 MCH 28.7 pg (27-33) 09/21/23 17:45 MCHC 32.2 g/dL (30-55) 09/21/23 17:45 RDW 14.1 % (12.1-15.1) 09/21/23 17:45 Plt Count 279 10^3/cmm (157-399) 09/21/23 17:45 MPV 11.2 fL (7.4-10.4) H 09/21/23 17:45 Neut % (Auto) 63.1 % 09/21/23 17:45 Lymph % (Auto) 22.3 % 09/21/23 17:45 [place] % (Auto) 10.2 % 09/21/23 17:45 Eos % (Auto) 2.8 % 09/21/23 17:45 Baso % (Auto) 1.3 % 09/21/23 17:45 Neut # (Auto) 4.75 10^3/uL (1.8-7.7) 09/21/23 17:45 Lymph # (Auto) 1.7 10^3/uL (0.8-4.8) 09/21/23 17:45 [place] # (Auto) 0.8 10^3/uL (0.2-0.9) 09/21/23 17:45 Eos # (Auto) 0.2 10^3/uL (0.0-0.8) 09/21/23 17:45 Baso # (Auto) 0.1 10^3/uL (0.0-0.1) 09/21/23 17:45 Nucleated RBC % (auto) 0 % 09/21/23 17:45 Nucleated RBCs # 0.0 /100WBC 09/21/23 17:45 Sodium 140 mmol/L (136-145) 09/21/23 17:45 Potassium 3.8 mmol/L (3.5-5.1) 09/21/23 17:45 Chloride 103 mmol/L (98-107) 09/21/23 17:45 Carbon Dioxide 23 mmol/L (22-29) 09/21/23 17:45 Anion Gap 17.8 (5-19) 09/21/23 17:45 BUN 10 mg/dL (6-20) 09/21/23 17:45 Creatinine 0.9 mg/dL (0.5-0.9) 09/21/23 17:45 GFR Calculation 68.0 mL/min (90-130) L 09/21/23 17:45 Glucose 102 mg/dL (65-115) 09/21/23 17:45 Calculated Osmolality 289 mOsm/kg (285-295) 09/21/23 17:45 Calcium 9.6 mg/dL (8.5-10.5) 09/21/23 17:45 Total Bilirubin 0.5 mg/dL (0.15-1.2) 09/21/23 17:45 AST 14 U/L (0-32) 09/21/23 17:45 ALT < 5 U/L (0-33) 09/21/23 17:45 Alkaline Phosphatase 94 U/L (35-105) 09/21/23 17:45 Total Protein 7.5 g/dL (6.6-8.7) 09/21/23 17:45 Albumin 4.8 g/dL (3.5-5.2) 09/21/23 17:45 Globulin 2.7 g/dL (1.3-4.6) 09/21/23 17:45 Salicylates < 0.3 mg/dL (3-10) L 09/21/23 17:45 Acetaminophen < 5.0 ug/mL (10-30) L 09/21/23 17:45 Ethyl Alcohol < 10 mg/dL (0-10) 09/21/23 17:45 No radiology studies performed this visit Discharge Plan Discharge Patient Disposition: Home Clinical Impression: Depression Condition: Stable Prescriptions: No Action levocetirizine [Xyzal] 5 mg tablet 5 mg PO DAILY Qty: 90 1RF celecoxib [Celebrex] 100 mg capsule 100 mg PO BID Qty: 180 1RF lurasidone 60 mg tablet 60 mg PO DAILY Qty: 30 2RF Rx Instructions: Take one tablet each evening with dinner; take it with food (at least 350 calories) atomoxetine 60 mg capsule 60 mg PO QAM Qty: 30 2RF Rx Instructions: Take one capsule by mouth every morning duloxetine 60 mg capsule,delayed release(DR/EC) 60 mg PO .q am Qty: 30 2RF Rx Instructions: Take one capsule by mouth every morning duloxetine 30 mg capsule,delayed release(DR/EC) 30 mg PO .every day at 2 PM Qty: 30 2RF Rx Instructions: Take one capsule every day at 2 PM trazodone 100 mg tablet See Rx Instructions PO .q hs PRN (Reason: insomnia) Qty: 30 2RF Rx Instructions: Take one-half to one tablet daily at bedtime, if needed for insomnia Miralax 17 gram powder in packet 17 g PO DAILY PRN (Reason: constipation) Qty: 14 0RF albuterol sulfate 90 mcg/actuation HFA aerosol inhaler 1 puff inhalation QID PRN (Reason: shortness of breath or wheezing) 30 Days Qty: 8.5 0RF fluticasone propionate [Flonase Allergy Relief] 50 mcg/actuation spray,suspension 2 spray intranasal DAILY 30 Days Qty: 16 2RF Rx Instructions: administer into each nostril Lyrica 150 mg capsule 150 mg PO BID 30 Days Qty: 60 1RF Zanaflex 4 mg tablet 4 mg PO BID PRN (Reason: Muscle Spasm) Qty: 60 1RF Rx Instructions: TAKE 1 TABLET BY MOUTH TWICE DAILY NEEDED Protonix 40 mg tablet,delayed release (DR/EC) 40 mg PO DAILY Qty: 60 0RF acetaminophen 500 mg capsule 1,000 mg PO Q6H PRN (Reason: pain) 15 Days Qty: 60 1RF Discharge Orders: Discharge ED (Routine); Ordered 09/21/23 Ordered By: Janna Nuñez Referrals: Stalin Nieves MD [Primary Care Provider] - 1-3 days Discharge Diet: Advance as tolerated Discharge Activity: Resume usual activity Patient Instructions: Depression (ED) Coding Level of Care Code ED Drill Operator Automatic for Dahiana Garcia
[2023-09-21 18:02] LABS: Basophils # 0.1 10^3/uL (0.0-0.1); Basophils % 1.3 %; Eosinophils # 0.2 10^3/uL (0.0-0.8); Eosinophils % 2.8 %; Hematocrit 44.1 % (36-47); Lymphocytes # 1.7 10^3/uL (0.8-4.8); Lymphocytes % 22.3 %; Mean Corpuscular HGB Conc 32.2 g/dL (30-55); Mean Corpuscular Hemoglobin 28.7 pg (27-33); Mean Corpuscular Volume 89.1 fl (85-98); Mean Platelet Volume 11.2 fL (7.4-10.4); Monocytes # 0.8 10^3/uL (0.2-0.9); Monocytes % 10.2 %; Neutrophils # 4.75 10^3/uL (1.8-7.7); Neutrophils % 63.1 %; Nucleated Red Blood Cells % 0 %; Platelet Count 279 10^3/cmm (157-399); Red Blood Count 4.95 10^6/uL (3.85-5.65); Red Cell Distribution Width 14.1 % (12.1-15.1); White Blood Count 7.53 10^3/uL (3.29-11.43)
[2023-09-21] MEDS: LORazepam 2 mg/mL INJ 1 mL IM (18:17)
[2023-09-21 18:25] LABS: Alanine Aminotransferase < 5 U/L (0-33); Albumin Level 4.8 g/dL (3.5-5.2); Alkaline Phosphatase 94 U/L (35-105); Anion Gap 17.8 (5-19); Aspartate Amino Transferase 14 U/L (0-32); Blood Urea Nitrogen 10 mg/dL (6-20); Calcium 9.6 mg/dL (8.5-10.5); Carbon Dioxide 23 mmol/L (22-29); Chloride 103 mmol/L (98-107); Globulin 2.7 g/dL (1.3-4.6); Glucose 102 mg/dL (65-115); Osmolality Calculated 289 mOsm/kg (285-295); Potassium 3.8 mmol/L (3.5-5.1); Sodium 140 mmol/L (136-145); Total Bilirubin 0.5 mg/dL (0.15-1.2); Total Protein 7.5 g/dL (6.6-8.7)
[2023-09-21 18:32] LABS: Acetaminophen < 5.0 ug/mL (10-30); Alcohol Level < 10 mg/dL (0-10); Salicylate < 0.3 mg/dL (3-10)
--- NOTE | 2023-09-21 18:35 | P.NPUCON_ITS ---
Providers/Reason for Consult Consulting Physican/Specialty*: José Miguel Angeles MD/Psychiatry Reason for Consult*: Patient placed on 96 hour hold. Primary Care Provider: Stalin Nieves MD Psych Consult HPI History of Present Illness Viviane Daniels is a 43 year old female currently followed by the [facility] in outpatient clinic who was placed on a 96-hour hold secondary to having used methamphetamine. The patient's step mother and father had filed the 96-hour hold. The patient had expressed concern that she may have taken marijuana and it may have been laced with methamphetamine. Nevertheless, she had denied having thoughts of hurting herself or others. She had reported that she was doing well and was compliant with her medication regimen that had been prescribed on her last visit with her nurse practitioner at the [facility] on . She had reported adequate sleep and reported no paranoia. She had reported no change in appetite. And reported improved energy with the medication adjustments. Previous records were reviewed on outpatient basis. Current Medications: cymbalta 60 mg daily, Latuda 60 mg at 6 PM, Strattera 60 mg daily, trazodone 100 mg at night Allergies: No known drug allergies Medical history: Polyarthritis, Fibromyalgia, otitis externa Previous records reviewed on outpatient basis. Meds Home Medications and Allergies Home Medications Medication Instructions Recorded Confirmed Last Taken Type acetaminophen 500 mg capsule 1,000 mg PO Q6H PRN pain 15 days 01/13/23 09/08/23 Unknown Rx #60 caps celecoxib 100 mg capsule (Celebrex) 100 mg PO BID #180 caps 03/26/23 09/08/23 Unknown Rx levocetirizine 5 mg tablet (Xyzal) 5 mg PO DAILY #90 tabs 03/26/23 09/08/23 Unknown Rx polyethylene glycol 3350 17 gram 17 g PO DAILY PRN constipation #14 04/30/23 09/08/23 Unknown Rx oral powder packet (Miralax) ea albuterol sulfate 90 mcg/actuation 1 puff inhalation QID PRN 07/06/23 09/08/23 Unknown Rx aerosol inhaler shortness of breath or wheezing 30 days #8.5 grams fluticasone propionate 50 2 spray intranasal DAILY 30 days 07/20/23 09/08/23 Unknown Rx mcg/actuation nasal #16 grams spray,suspension (Flonase Allergy Relief) pregabalin 150 mg capsule (Lyrica) 150 mg PO BID 30 days #60 caps 08/10/23 09/08/23 Unknown Rx tizanidine 4 mg tablet (Zanaflex) 4 mg PO BID PRN Muscle Spasm #60 08/31/23 1 Unknown Rx tabs atomoxetine 60 mg capsule 60 mg PO QAM #30 caps 09/08/23 09/08/23 Unknown Rx duloxetine 30 mg capsule,delayed 30 mg PO .every day at 2 PM #30 09/08/23 09/08/23 Unknown Rx release caps duloxetine 60 mg capsule,delayed 60 mg PO .q am #30 caps 09/08/23 09/08/23 Unknown Rx release lurasidone 60 mg tablet 60 mg PO DAILY #30 tabs 09/08/23 09/08/23 Unknown Rx trazodone 100 mg tablet See Rx Instructions PO .q hs PRN 09/08/23 09/08/23 Unknown Rx insomnia #30 tabs pantoprazole 40 mg tablet,delayed 40 mg PO DAILY #60 tabs 09/16/23 Unknown Rx release (Protonix) Allergies Allergy/AdvReac Type Severity Reaction Status Date / Time No Known Allergies Allergy Verified 09/08/23 13:36 PFSH NPU PFSH: Medical History ADHD Bipolar disorder Herniated disc Methamphetamine use disorder, moderate, dependence Methamphetamine use disorder, moderate, in early remission Personality disorder Psychiatric care PTSD (post-traumatic stress disorder) Surgical History History of foot surgery left foot, reconstructive due to no arch Family History Grandmother Dementia Diabetes Father Psychiatric illness Hypertension Other Bipolar disorder Denies family history of CAD (coronary artery disease) Clotting disorder Hyperlipidemia Chronic kidney disease (CKD) Anesthesia complication Bleeding disorder Lung disease Cancer Stroke Social History Smoking and tobacco/nicotine status: current every day tobacco/nicotine user cigarettes Packs smoked per day: 0.5 [ Other cigarette details: 1/3PPD, 30 PY, started at 12yo] and e-cigarettes E-Cigarette Details: e-cigarette and with nicotine E-cig/vape details: every once in awhile Quit status (tobacco/nicotine): considering quitting Second hand smoke exposure: No Alcohol intake: current Alcohol intake frequency: holidays/special occasions only Alcohol type: hard liquor Substance/Drug Use: current Substance/Drug use frequency: few times a week Other substance/drug use details: every few days, December 25, 2022 last Methamphetamine use Adopted: No Caregiver/support person: No Lives independently: Yes Household members: family Housing: House Marital status: Legally Number of children: 2 Number of grandchildren: 0 Highest education level completed: Associate Degree: Academic Program 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 She was calm and cooperative on interview. ?She is alert and oriented to person, place, time and situation. She described her mood as good. Her affect was euthymic. Her Speech was normal in rate, rhythm and prosody. There was no evidence of psychomotor agitation or psychomotor retardation. She did not appear to be responding to internal stimuli. Her recent and remote memory appeared grossly intact. She has slight psychomotor agitation of lower extremities, similar to that presented prior visits. No hallucinations noted or reported. Patient denies thoughts of harming herself and others. Judgment and insight are deemed fair, appropriate to fund of knowledge and diagnoses. Attention and concentration are attentive to conversation. Vitals/I&O/Wt Last Vital Signs Temp 98.9 F 09/21/23 17:32 Pulse 107 H 09/21/23 17:32 Resp 16 09/21/23 17:32 BP 147/109 09/21/23 17:32 Pulse Ox 97 09/21/23 17:32 O2 Del Method Room Air 09/21/23 17:32 Weight last 48 hrs Weight 90.718 kg Data NPU 09/21/23 17:45 09/21/23 17:45 A&P Assessment and plan (1) Methamphetamine use disorder, moderate, dependence: Plan Patient is 43 year old with methamphetamine abuse placed on 96 by family members currently not exhibiting any symptoms that support involuntary hospitalization. Patient reports not wishing to be hospitalized. 96 hour hold rescinded, recommend follow up with [facility] for substance abuse at this time. No need for acute inpatient psychiatric hospitalization. Involuntary Hold Information 96 Hour Hold: 96 Hour Involuntary Admission: Yes 96 Hour Hold Ending Date: 01/01/23 96 Hour Hold Ending Time: 23:16 Attestations NPU Medical Necessity Statement*: NA Coding Level of Care Code Acute Code for Chg Fwd Diagnoses Methamphetamine use disorder, moderate, dependence F15.20
== END 2023-09-21 19:02 | disposition home or self-care (01) ==
PROVIDERS: Family Medicine; Emergency Provider Emergency Medicine; PCP Family Medicine
DX: F32.A Depression, unspecified (principal); F17.210 Nicotine dependence, cigarettes, uncomplicated; F17.290 Nicotine dependence, other tobacco product, uncomplicated
CPT/HCPCS: 36415; 80053; 80307; 85025; 96372; 99284; J2060

== ENCOUNTER 2024-02-04 18:01 | Inpatient (IN) | payer MEDICAID, SELFPAY ==
[2023-12-28 11:01] VITALS: BP 137/84; BMI 27.8
[2024-02-04 18:02] VITALS: BP 146/103; PULSE 120; RESP 25; TEMP 38.1; O2SAT 97
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
[2024-02-04 18:18] VITALS: RESP 27; O2SAT 96
[2024-02-04] MEDS: LORazepam 2 mg/mL INJ 10 mL MDV IM (18:19)
[2024-02-04] MEDS: haloperidol inj 5 mg/mL INJ 1 mL IM (18:19)
--- NOTE | 2024-02-04 18:30 | XRR_ITS ---
PROCEDURE INFORMATION: Exam: XR Right Ankle Exam date and time: 02/04/2024 6:41 PM Age: 43 years old Clinical indication: Injury or trauma; Fall; Swelling (edema); Ankle; Right TECHNIQUE: Imaging protocol: Radiologic exam of the right ankle. Views: 3 or more views. COMPARISON: CR XR foot RT min 3V* [id number] 06/16/2023 1:15 PM FINDINGS: Bones/joints: Normal mineralization and alignment. No evidence of acute fracture. Soft tissues: Mild diffuse soft tissue swelling, particularly overlying the lateral malleolus. XR/XR ankle RT min 3V* [id number] IMPRESSION: Soft tissue swelling without evidence of acute fracture or dislocation.
--- NOTE | 2024-02-04 18:30 | PC.NURSE ---
96 hr rights reviewed with patient with assistance of [facility] global chief creative officer Larry @[phone]. Education reviewed. All questions answered appropriately. Patient verbalizes understatement, but continues to change topics frantically and jumbles up statements. Patient provided ice water after rights reviewed. Patient copy left @bedside with patient.
[2024-02-04] MEDS: acetaminophen 500 mg Tablet 1000 MG PO (18:31)
--- NOTE | 2024-02-04 18:31 | PC.NURSE ---
pt refusing to give urine sample, states, I know what I did and I have my rights. pt extremely anxious at this time. see MAR for medication administration.
[2024-02-04 19:02] LABS: Basophils # 0.1 10^3/uL (0.0-0.1); Basophils % 0.6 %; Eosinophils # 0.3 10^3/uL (0.0-0.8); Hematocrit 36.9 % (36-47); Lymphocytes % 15.9 %; Mean Corpuscular HGB Conc 33.3 g/dL (30-55); Mean Corpuscular Hemoglobin 29.1 pg (27-33); Mean Corpuscular Volume 87.2 fl (85-98); Mean Platelet Volume 11.9 fL (7.4-10.4); Monocytes # 1.2 10^3/uL (0.2-0.9); Monocytes % 9.7 %; Neutrophils # 9.08 10^3/uL (1.8-7.7); Neutrophils % 71.6 %; Nucleated Red Blood Cells % 0 %; Platelet Count 227 10^3/cmm (157-399); Red Blood Count 4.23 10^6/uL (3.85-5.65); Red Cell Distribution Width 14.3 % (12.1-15.1)
[2024-02-04 19:18] LABS: Acetaminophen 13.5 ug/mL (10-30); Alanine Aminotransferase 15 U/L (0-33); Albumin Level 4.4 g/dL (3.5-5.2); Alkaline Phosphatase 88 U/L (35-105); Anion Gap 18.9 (5-19); Aspartate Amino Transferase 23 U/L (0-32); Blood Urea Nitrogen 18 mg/dL (6-20); Calcium 9.3 mg/dL (8.5-10.5); Carbon Dioxide 20 mmol/L (22-29); Chloride 102 mmol/L (98-107); Glomerular Filtration Rate 48.8 mL/min (90-130); Glucose 97 mg/dL (65-115); Osmolality Calculated 286 mOsm/kg (285-295); Potassium 3.9 mmol/L (3.5-5.1); Sodium 137 mmol/L (136-145); Total Bilirubin 0.6 mg/dL (0.15-1.2); Total Protein 7.4 g/dL (6.6-8.7)
[2024-02-04 19:19] LABS: Alcohol Level < 10 mg/dL (0-10); Salicylate < 0.3 mg/dL (3-10)
[2024-02-04 19:28] VITALS: BP 113/71; PULSE 85; RESP 20; TEMP 36.6; O2SAT 95
[2024-02-04 20:01] VITALS: BP 129/82; PULSE 78; RESP 20; TEMP 36.8; O2SAT 100
[2024-02-04 20:35] VITALS: BP 129/82; PULSE 78; RESP 20; TEMP 36.8; O2SAT 100
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
--- NOTE | 2024-02-05 06:45 | PC.NURSE ---
pt ref vs resp 18
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
[2024-02-05 14:00] VITALS: BP 109/80; PULSE 64; RESP 16; TEMP 36.8; O2SAT 96
[2024-02-05 20:33] VITALS: BP 118/75; PULSE 92; RESP 16; TEMP 37.1; O2SAT 96
[2024-02-06 06:00] VITALS: BP 122/86; PULSE 93; RESP 16; TEMP 36.9; O2SAT 98
--- NOTE | 2024-02-06 11:27 | P.NPUPN_ITS ---
Subjective NPU 2 Subjective: Patient presented today reporting that she is doing okay but is a little tired. She is appreciative of her medications being continued but is likely having some hypersomnolence secondary to having her medications restarted. She denied any other side effects of the medication and discussed continuing to work with us towards a reasonable discharge plan. Mental Status Exam 2 MSE Comments: This is an overweight white female looking older than her stated age in hospital scrubs with limited grooming and adequate eye contact. No abnormal movements except for significant psychomotor agitation and some movement consistent with tweaking. Mostly cooperative with exam in moderate distress. Speech was increased rate and volume. Mood described as I know I messed up, affect congruent and slightly agitated. Thought process mostly organized. Thought content: Patient denies suicidal or homicidal ideation, there was paranoia reported and some paranoia noted, she endorsed some auditory but denied visual hallucinations and she appeared to be attending to internal stimuli. Attention, concentration and memory were limited but none were formally tested. She was alert and oriented times person and place. Insight, judgment and impulse control are impaired. Vitals/I&O/Wt Last Vital Signs Temp 98.4 F 02/06/24 06:00 Pulse 93 02/06/24 06:00 Resp 16 02/06/24 06:00 BP 122/86 02/06/24 06:00 Pulse Ox 98 02/06/24 06:00 O2 Del Method Room Air 02/06/24 06:00 Data NPU 02/04/24 18:46 02/04/24 18:46 A&P Assessment and plan (1) Acute psychosis: (2) Bipolar disorder: Qualifiers: Current bipolar episode type: mixed Psychotic features: without psychotic features (3) Personality disorder: (4) PTSD (post-traumatic stress disorder): (5) Methamphetamine use disorder, severe: (6) Cannabis use disorder: Plan This is a 43-year-old white female with a long history of trauma, addiction and mental health diagnoses including bipolar disorder who presents again with recent psychotic symptoms once again on a 96-hour hold in part secondary to her active methamphetamine use. 1. Continue current medication. 2. Continue every 15 minute checks for safety. 3. Encourage individual, group and milieu therapy once he has engaged. 4. Encourage sobriety treatment after discharge to the hospital care to which she is willing to commit. Work on continuing previous plan for rehab. Involuntary Hold Information 2 96 Hour Hold: 96 Hour Involuntary Admission: Yes 96 Hour Hold Ending Date: 02/10/24 96 Hour Hold Ending Time: 18:01 Attestations NPU 2 Medical Necessity Statement*: Inpatient hospitalization is medically necessary and be clinically appropriate vet at this time. We will monitor/initiate medications and make changes as indicated. Likely length of stay 4-7 days. Coding Level of Care Code Acute Code for [facility] Fwd Diagnoses Acute psychosis F23 Bipolar disorder F31.9 Current bipolar episode type: mixed Psychotic features: without psychotic features Personality disorder F60.9 PTSD (post-traumatic stress disorder) F43.10 Methamphetamine use disorder, severe F15.20 Cannabis use disorder F12.90
[2024-02-06] MEDS: pantoprazole DR 40 mg Tablet PO (12:22)
[2024-02-06 14:00] VITALS: BP 124/81; PULSE 95; RESP 16; TEMP 36.6; O2SAT 98
[2024-02-06] MEDS: lurasidone 20 mg Tablet 60 MG PO (17:53)
[2024-02-06] MEDS: duloxetine 60 mg Capsule PO (20:21)
[2024-02-06] MEDS: pregabalin 150 mg Capsule PO (20:21)
[2024-02-06] MEDS: CELEcoxib 100 mg Capsule PO (20:21)
[2024-02-06 20:37] VITALS: BP 133/85; PULSE 78; RESP 16; TEMP 36.5; O2SAT 99
[2024-02-07 06:00] VITALS: BP 139/105; PULSE 96; RESP 18; TEMP 36.7; O2SAT 100
[2024-02-07] MEDS: atomoxetine 40 mg Capsule 80 MG PO (06:56)
--- NOTE | 2024-02-07 07:41 | P.NPUPN_ITS ---
Subjective NPU 2 Subjective: Patient presented today reporting that she is feeling a little better. She reports having less agitation and the medication starting to kick in. She was having less spontaneous as she was reporting she was catching up on sleep. She denied any other side effects of the medication other than being tired. Mental Status Exam 2 MSE Comments: This is an overweight white female looking older than her stated age in hospital scrubs with limited grooming and adequate eye contact. No abnormal movements except for less psychomotor agitation and less notable tweaking. Mostly cooperative with exam in moderate distress. Speech was increased rate and volume. Mood described as a little better, affect congruent. Thought process mostly organized. Thought content: Patient denies suicidal or homicidal ideation, there was paranoia reported and some paranoia noted, she endorsed some auditory but denied visual hallucinations and she appeared to be attending to internal stimuli. Attention, concentration and memory were limited but none were formally tested. She was alert and oriented times person and place. Insight, judgment and impulse control are impaired. Vitals/I&O/Wt Last Vital Signs Temp 98.1 F 02/07/24 06:00 Pulse 96 02/07/24 06:00 Resp 18 02/07/24 06:00 BP 139/105 02/07/24 06:00 Pulse Ox 100 02/07/24 06:00 O2 Del Method Room Air 02/07/24 06:00 6 Weight last 48 hrs Weight 75.387 kg Data NPU 02/04/24 18:46 02/04/24 18:46 A&P Assessment and plan (1) Acute psychosis: (2) Bipolar disorder: Qualifiers: Current bipolar episode type: mixed Psychotic features: without psychotic features (3) Personality disorder: (4) PTSD (post-traumatic stress disorder): (5) Methamphetamine use disorder, severe: (6) Cannabis use disorder: Plan This is a 43-year-old white female with a long history of trauma, addiction and mental health diagnoses including bipolar disorder who presents again with recent psychotic symptoms once again on a 96-hour hold in part secondary to her active methamphetamine use. 1. Continue current medication. 2. Continue every 15 minute checks for safety. 3. Encourage individual, group and milieu therapy once he has engaged. 4. Encourage sobriety treatment after discharge to the hospital care to which she is willing to commit. Work on continuing previous plan for rehab. Involuntary Hold Information 2 96 Hour Hold: 96 Hour Involuntary Admission: Yes 96 Hour Hold Ending Date: 02/10/24 96 Hour Hold Ending Time: 18:01 Attestations NPU 2 Medical Necessity Statement*: Inpatient hospitalization is medically necessary and be clinically appropriate vet at this time. We will monitor/initiate medications and make changes as indicated. Likely length of stay 3-6 days. Coding Level of Care Code Acute Code for g Fwd Diagnoses Acute psychosis F23 Bipolar disorder F31.9 Current bipolar episode type: mixed Psychotic features: without psychotic features Personality disorder F60.9 PTSD (post-traumatic stress disorder) F43.10 Methamphetamine use disorder, severe F15.20 Cannabis use disorder F12.90
[2024-02-07] MEDS: fluticasone nasal spray 16gm Btl 2 SPRAY INTRANASAL (08:43)
[2024-02-07] MEDS: pregabalin 150 mg Capsule PO ×2 (08:44→20:09)
[2024-02-07] MEDS: duloxetine 60 mg Capsule PO ×2 (08:44→20:09)
[2024-02-07] MEDS: CELEcoxib 100 mg Capsule PO ×2 (08:44→20:08)
[2024-02-07] MEDS: pantoprazole DR 40 mg Tablet PO (08:44)
[2024-02-07 13:19] VITALS: BP 123/81; PULSE 84; RESP 16; TEMP 36.5; O2SAT 99
[2024-02-07] MEDS: acetaminophen 325 mg Tablet 650 MG PO (15:11)
[2024-02-07] MEDS: lurasidone 20 mg Tablet 60 MG PO (17:50)
[2024-02-07] MEDS: hyDROXYzine 25 mg Capsule 50 MG PO (18:13)
[2024-02-07 19:48] VITALS: BP 122/80; PULSE 80; RESP 18; TEMP 36.4; O2SAT 100
[2024-02-07] MEDS: trazodone 100 mg Tablet 200 MG PO (20:09)
[2024-02-08 06:00] VITALS: BP 119/76; PULSE 58; RESP 16; TEMP 36.8; O2SAT 96
[2024-02-08] MEDS: atomoxetine 40 mg Capsule 80 MG PO (06:55)
[2024-02-08] MEDS: CELEcoxib 100 mg Capsule PO ×2 (08:13→20:09)
[2024-02-08] MEDS: pregabalin 150 mg Capsule PO ×2 (08:13→20:09)
[2024-02-08] MEDS: pantoprazole DR 40 mg Tablet PO (08:13)
[2024-02-08] MEDS: duloxetine 60 mg Capsule PO ×2 (08:13→20:09)
[2024-02-08] MEDS: fluticasone nasal spray 16gm Btl 2 SPRAY INTRANASAL (08:14)
[2024-02-08] MEDS: nicotine 21 mg Patch 1 PATCH TRANSDERMA (12:48)
[2024-02-08 14:00] VITALS: BP 120/79; PULSE 84; RESP 17; TEMP 36.7; O2SAT 97
--- NOTE | 2024-02-08 16:27 | W.PM.NPUPNS ---
Subjective NPU Subjective: Patient had reported that she was feeling better with the Latuda. She had reported that she had been using methamphetamine prior to coming in here. She reported having no thoughts of hurting herself or others. She had admitted to having paranoia and psychosis at times when under the influence of methamphetamine. She had expressed interest in considering digital applications for treating methamphetamine abuse. She had reported that she would be willing to continue with outpatient services at the [facility] for further treatment of her psychosis. Mental Status Exam MSE Comments: This is an overweight white female looking older than her stated age in hospital scrubs with limited grooming and adequate eye contact. No abnormal movements except for mild psychomotor activation. She was cooperative with exam in mild distress. Speech was normal in rate and normal in volume. Mood described as okay. Her affect was mood congruent. Thought process was linear and organized. Thought content: Patient denies suicidal or homicidal ideation. She appeared to be responding to internal stimuli with mild paranoia noted. Attention, concentration and memory were limited but none were formally tested. She was alert and oriented times person and place. Insight, judgment and impulse control are impaired. Vitals/I&O/Wt Last Vital Signs Temp 98.0 F 02/08/24 14:00 Pulse 84 02/08/24 14:00 Resp 17 02/08/24 14:00 BP 120/79 02/08/24 14:00 Pulse Ox 97 02/08/24 14:00 O2 Del Method Room Air 02/06/24 20:37 Weight last 48 hrs Weight 75.387 kg Data NPU 02/04/24 18:46 02/04/24 18:46 A&P Assessment and plan (1) Acute psychosis: (2) Bipolar disorder: Qualifiers: Current bipolar episode type: mixed Psychotic features: without psychotic features (3) Personality disorder: (4) PTSD (post-traumatic stress disorder): (5) Methamphetamine use disorder, severe: (6) Cannabis use disorder: Plan This is a 43-year-old white female with a long history of trauma, addiction and mental health diagnoses including bipolar disorder who presents again with recent psychotic symptoms once again on a 96-hour hold in part secondary to her active methamphetamine use. 1. Continue Latuda 60mg at night with food, cymbalta 120mg daily. 2. Continue every 15 minute checks for safety. 3. Encourage individual, group and milieu therapy once he has engaged. 4. Encourage sobriety treatment after discharge to the hospital care to which she is willing to commit. Work on continuing previous plan for rehab. Involuntary Hold Information 96 Hour Hold: 96 Hour Involuntary Admission: Yes 96 Hour Hold Ending Date: 02/10/24 96 Hour Hold Ending Time: 18:01 Attestations NPU Medical Necessity Statement*: Inpatient hospitalization is medically necessary and be clinically appropriate vet at this time. We will monitor/initiate medications and make changes as indicated. Her likely length of stay is 3-6 days. Coding Level of Care Code Acute Code for g Fwd Diagnoses Acute psychosis F23 Bipolar disorder F31.9 Current bipolar episode type: mixed Psychotic features: without psychotic features Personality disorder F60.9 PTSD (post-traumatic stress disorder) F43.10 Methamphetamine use disorder, severe F15.20 Cannabis use disorder F12.90
[2024-02-08 16:36] LABS: HCG Qualitative Urine. Negative (Negative)
[2024-02-08] MEDS: lurasidone 20 mg Tablet 60 MG PO (17:57)
[2024-02-08] MEDS: trazodone 100 mg Tablet 200 MG PO (20:09)
[2024-02-08 20:59] VITALS: BP 128/92; PULSE 90; RESP 18; TEMP 36.5; O2SAT 98
[2024-02-09 06:00] VITALS: BP 115/82; PULSE 96; RESP 17; TEMP 36.7; O2SAT 99
[2024-02-09] MEDS: atomoxetine 40 mg Capsule 80 MG PO (06:29)
[2024-02-09] MEDS: duloxetine 60 mg Capsule PO (08:04)
[2024-02-09] MEDS: pregabalin 150 mg Capsule PO ×2 (08:04→20:02)
[2024-02-09] MEDS: CELEcoxib 100 mg Capsule PO ×2 (08:04→20:02)
[2024-02-09] MEDS: pantoprazole DR 40 mg Tablet PO (08:04)
[2024-02-09] MEDS: tizanidine 4 mg Tablet PO ×2 (08:57→20:02)
[2024-02-09] MEDS: fluticasone nasal spray 16gm Btl 2 SPRAY INTRANASAL (09:25)
[2024-02-09] MEDS: nicotine 21 mg Patch 1 PATCH TRANSDERMA (09:25)
[2024-02-09 14:00] VITALS: BP 124/84; PULSE 75; RESP 16; TEMP 37.2; O2SAT 100
[2024-02-09] MEDS: ibuprofen 600 mg Tablet PO (15:07)
--- NOTE | 2024-02-09 18:11 | P.NPUPN_ITS ---
Subjective NPU 2 Subjective: 43-year-old female admitted with psychos is with a past history of methamphetamine. Patient had stated that she was feeling better. She had reported no side effects from her medication. The patient was informed of the concern regarding taking Cymbalta and Strattera together with increased risk of serotonin syndrome and was agreeable with a slight reduction in Cymbalta. She had reported having been treated in the past for psychosis and depression and reported that due to had been helpful for her. She continued to report some pain issues. She had endorsed some PTSD related issues. She reported feeling less suspicious of others and tension. She reported that she would return to [facility] for follow-up. Mental Status Exam 2 MSE Comments: This is an overweight white female looking older than her stated age in hospital scrubs with limited grooming and adequate eye contact. No abnormal movements except for mild psychomotor activation. She was cooperative with exam in mild distress. Speech was normal in rate and normal in volume. Mood described as better. Her affect was mood congruent. Thought process was linear and organized. Thought content: Patient denies suicidal or homicidal ideation. She appeared to be responding to internal stimuli with mild paranoia noted. Attention, concentration and memory were limited but none were formally tested. She was alert and oriented times x3/ Insight was limited. Her, judgment was improving and impulse control is guarded. Vitals/I&O/Wt Last Vital Signs Temp 98.9 F 02/09/24 14:00 Pulse 75 02/09/24 14:00 Resp 16 02/09/24 14:00 BP 124/84 02/09/24 14:00 Pulse Ox 100 02/09/24 14:00 O2 Del Method Room Air 02/09/24 14:00 Data NPU 02/04/24 18:46 02/04/24 18:46 A&P Assessment and plan (1) Acute psychosis: (2) Bipolar disorder: Qualifiers: Current bipolar episode type: mixed Psychotic features: without psychotic features (3) Personality disorder: (4) PTSD (post-traumatic stress disorder): (5) Methamphetamine use disorder, severe: (6) Cannabis use disorder: Plan This is a 43-year-old white female with a long history of trauma, addiction and mental health diagnoses including bipolar disorder who presents again with recent psychotic symptoms once again on a 96-hour hold in part secondary to her active methamphetamine use. 1. Continue Latuda 60mg at night with food, strattera 80mg daily and reduce cymbalta 90mg daily. 2. Continue every 15 minute checks for safety. 3. Encourage individual, group and milieu therapy once he has engaged. 4. Encourage sobriety treatment after discharge to the hospital care to which she is willing to commit. Work on continuing previous plan for rehab. Likely discharge tommorow. Involuntary Hold Information 2 96 Hour Hold: 96 Hour Involuntary Admission: Yes 96 Hour Hold Ending Date: 02/10/24 96 Hour Hold Ending Time: 18:01 Attestations NPU 2 Medical Necessity Statement*: Inpatient hospitalization is medically necessary and be clinically appropriate vet at this time. We will monitor/initiate medications and make changes as indicated. Her likely length of stay is 1-2 days. Coding Level of Care Code Acute Code for [facility] Fwd Diagnoses Acute psychosis F23 Bipolar disorder F31.9 Current bipolar episode type: mixed Psychotic features: without psychotic features Personality disorder F60.9 PTSD (post-traumatic stress disorder) F43.10 Methamphetamine use disorder, severe F15.20 Cannabis use disorder F12.90
[2024-02-09] MEDS: duloxetine 30 mg Capsule PO (18:22)
[2024-02-09] MEDS: lurasidone 20 mg Tablet 60 MG PO (18:22)
[2024-02-09 19:52] VITALS: BP 110/77; PULSE 82; RESP 16; O2SAT 98
[2024-02-09] MEDS: trazodone 100 mg Tablet 200 MG PO (20:02)
[2024-02-10 06:00] VITALS: BP 111/66; PULSE 89; RESP 16; TEMP 36.7; O2SAT 96
[2024-02-10] MEDS: atomoxetine 40 mg Capsule 80 MG PO (06:41)
[2024-02-10] MEDS: nicotine 2 mg Gum BUCCAL ×3 (06:56→12:47)
[2024-02-10] MEDS: duloxetine 30 mg Capsule 90 MG PO (08:17)
[2024-02-10] MEDS: CELEcoxib 100 mg Capsule PO (08:18)
[2024-02-10] MEDS: tizanidine 4 mg Tablet PO (08:18)
[2024-02-10] MEDS: fluticasone nasal spray 16gm Btl 2 SPRAY INTRANASAL (08:18)
[2024-02-10] MEDS: pantoprazole DR 40 mg Tablet PO (08:18)
[2024-02-10] MEDS: pregabalin 150 mg Capsule PO (08:18)
--- NOTE | 2024-02-10 09:15 | PC.NURSE ---
ASSESSMENT COMPLETED IN ROOM. PT IS NOTED TO HAVE RAPID AND PRESSURED SPEECH THROUGHOUT ASSESSMENT. DENIES SI/HI AND AVH AT THIS TIME. RATES ANXIETY 5/10 AND DEPRESSION 0/10.PT DENIES PAIN BUT REQUESTS TIZANADINE FOR MUSCLE ACHES. MEDICATION WAS GIVEN ORDERED. PT MOOD IS UPBEAT WITH ANIMATED SPEECH. ALL QUESTIONS WERE ANSWERED AND SUPPORT WAS VOICED.
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
[2024-02-10 12:43] VITALS: BP 111/66; PULSE 89; RESP 16; TEMP 36.7; O2SAT 96
== END 2024-02-10 13:55 | disposition home or self-care (01) | DRG 897 ==
LOC: ER 19:29 → NP 19:41
PROVIDERS: Admitting Provider Psychiatry & Neurology Psychiatry; Emergency Provider Emergency Medicine; PCP Family Medicine; Visit Provider Psychiatry & Neurology Psychiatry
DX: F15.250 Other stimulant dependence with stimulant-induced psychotic disorder with delusions (principal); F31.60 Bipolar disorder, current episode mixed, unspecified; F60.9 Personality disorder, unspecified; F43.12 Post-traumatic stress disorder, chronic; F12.90 Cannabis use, unspecified, uncomplicated; F17.210 Nicotine dependence, cigarettes, uncomplicated
CPT/HCPCS: 73610; 80053; 80307; 81025; 85025; 96372; 97150; 97165; 99285; J1630; J2060